=== PATIENT | male | born 1965 | race Caucasian/White ===

== ENCOUNTER → 2016-07-26 | Outpatient (CLI) | payer OTHER ==
[2016-07-26 13:34] LABS: ALT/SGPT 48 U/L (12-78); AST/SGOT 31 U/L (15-37); BLOOD UREA NITROGEN 13 mg/dl (7-18); CALCIUM 8.9 mg/dl (8.5-10.1); CARBON DIOXIDE 30 mmol/L (21-32); CHLORIDE 108 mmol/L (98-107); GLUCOSE 115 mg/dl (70-99); POTASSIUM 4.5 mmol/L (3.5-5.1); SODIUM 141 mmol/L (136-145)
[2016-07-26 13:36] LABS: ALB/GLOB RATIO 1.1 (0.9-2); ALKALINE PHOSPHATASE 59 U/L (45-117); CHOLESTEROL 157 mg/dl (0-200); CHOLESTEROL/HDL RATIO 4.6; HDL CHOLESTEROL 34 mg/dl; LDL CHOLESTEROL CALCULATED 107 mg/dl; TRIGLYCERIDES 79 mg/dl (0-150); VERY LOW DENSITY LIPOPROT CALC 16 mg/dl
== END ==
LOC: C.LABPBG 07:40
PROVIDERS: ATTEND Family Medicine
DX: I10 Essential (primary) hypertension (principal); Z13.220 Encounter for screening for lipoid disorders

== ENCOUNTER → 2017-03-02 | Outpatient (CLI) | payer OTHER ==
[2017-03-02 17:31] LABS: BLOOD UREA NITROGEN 15 mg/dl (7-18); BUN/CREATININE RATIO 14.3 (10-20); CARBON DIOXIDE 25 mmol/L (21-32); CHLORIDE 105 mmol/L (98-107); CREATININE 1.04 mg/dl (0.60-1.40); GLUCOSE 88 mg/dl (70-99); POTASSIUM 3.9 mmol/L (3.5-5.1); SODIUM 136 mmol/L (136-145)
[2017-03-03 07:16] LABS: ESTIMATED AVERAGE GLUCOSE 123 mg/dl; HA1C FLAG Normal (Normal)
== END | disposition home or self-care (01) ==
LOC: C.LABPBG 15:16
PROVIDERS: ATTEND Family Medicine
DX: I10 Essential (primary) hypertension (principal); R73.01 Impaired fasting glucose

== ENCOUNTER 2018-04-13 02:24 | Inpatient (IN) ==
[2018-04-13] MEDS ORDERED: ONDANSETRON INJ 2 MG/ML 2 ML VIAL IV STA (02:44)
[2018-04-13] MEDS ORDERED: MoRPHine SULFATE 10 MG/ML CARP/VIAL IV STA (02:44)
[2018-04-13] MEDS ORDERED: KETOROLAC 30 MG/ML VIAL IV STA (02:44)
[2018-04-13] MEDS ORDERED: SODIUM CHLORIDE 0.9% 1000ML 1,000 ML IV SCH (02:45)
[2018-04-13] MEDS ORDERED: MoRPHine SULFATE 4 MG/ML 1 ML CARP\\VIAL ONE (02:52)
[2018-04-13 02:59] LABS: Basophils # (auto) 0.03 K/uL (0-0.2); Basophils % (auto) 0.3 %; Eosinophils # (auto) 0.12 K/uL (0-0.5); Hematocrit (blood only) 43.6 % (42-52); Immature Granulocytes # (auto) 0.03 K/uL (0.00-0.02); Immature Granulocytes % (auto) 0.3 %; Lymphocytes # (auto) 1.31 K/uL (1.2-3.4); Lymphocytes % (auto) 11.1 %; Mean Corpuscular Hgb Conc 34.4 g/dL (32-36); Mean Corpuscular Volume 90.5 fL (80-100); Monocytes % (auto) 8.5 %; Neutrophils % (auto) 78.8 %; Platelet Count 201 K/uL (130-400); RDW Coefficient of Variation 13.7 % (11.5-14.5); RDW Standard Deviation 45.4 fL (36.4-46.3); Red Blood Count 4.82 M/uL (4.7-6.1); White Blood Count 11.79 K/uL (4.8-10.8)
[2018-04-13 03:16] LABS: Albumin Level 3.9 gm/dl (3.4-5.0); BUN Creatinine Ratio 18.8 (10-20); Calcium 8.8 mg/dl (8.5-10.1); Creatinine Clr Calc Pharmacy 110.1 ml/min; Est GFR (African American) 84.3; Est GFR (Non-African American) 72.8; Potassium 4.2 mmol/L (3.5-5.1)
[2018-04-13 03:19] LABS: Albumin Globulin Ratio 1.1 (0.9-2); Bilirubin,Total 0.3 mg/dl (0.2-1); Globulin 3.7 gm/dl (2.5-4.0); Total Protein 7.6 gm/dl (6.4-8.2)
[2018-04-13] MEDS ORDERED: HYDROmorphone INJ 1 MG/ML SYRINGE IV STA (04:12)
--- NOTE | 2018-04-13 04:59 | History & Physical Report ---
Date of Service April 13, 2018 Assessment & Plan (1) Ureteral calculus, right: 52 y/o M Hx HTN, ureteral calculus which required lithotripsy and stenting 2007. Presents with progressive R groin and testicular pain. Denies dysuria, fevers or rigors. A CT of the abdomen demonstrated 7mm and 10mm, R ureteral, proximal obstructing stones with moderate hydronephrosis. 1) Obstructing calculus. there is no chance of spontaneous passage. IVF and analgesics provided. The pt will be kept NPO for intervention and we have consulted uorlogy. He can receive antibiotics pre-eop. There is currently no evidence of concomitant infection. 2) HTN - Losartan held for likely procedure SCDS, full code Total time for this admit including review of labs, meds, imaging, records - discussion with pt and ER attending - 34 min Present on Admission?: Yes History of Present Illness Chief Complaint: 52 y/o M Hx HTN, ureteral calculus which required lithotripsy and stenting 2007. Presents with progressive R groin and testicular pain. Denies dysuria, fevers or rigors. A CT of the abdomen demonstrated 7mm and 10mm , R ureteral, proximal obstructing stones with moderate hydronephrosis. PMH: 1) Ureteral calculus - required lithotripsy and stent 2007 2) HTN 3) Obese Surgical: Limited to ureteral stent placement Social: Currently works for [employer]. Does not drink or smoke. Physically active at work. Family: Father owing to an [place] ~70 Primary Care Provider: Christel Ying DO Allergies Allergy/AdvReac Type Severity Reaction Status Date / Time No Known Allergies Allergy Unverified 04/13/18 03:09 Home Medications Home Medications Medication Instructions Recorded Confirmed Type Tumeric 1 tab PO DAILY 04/13/18 History celecoxib [Celebrex] 200 mg PO DAILY 04/13/18 04/13/18 History cholecalciferol (vitamin D3) 4,000 unit PO DAILY 04/13/18 04/13/18 History [Vitamin D3] losartan 50 mg PO DAILY 04/13/18 04/13/18 History Past Med/Surg History Social History Feels Safe at Home: Yes Smoking Status: Never smoker Review of Systems Gen: Denies fevers, night sweats, rigors, fatigue, malaise, weight loss/gain ENT: Denies congestion, throat pain, hearing loss Eyes: Denies acute visual changes CV: Denies CP, palpitations Pulmonary: Denies SOB, cough, wheezing GI: Denies N/V, diarrhea, constipation : R groin and testicular pain as above Neuro: Denies acute or unilateral weakness, acute gait impairment, headache or acute visual changes Musculoskeletal: Denies joint pain, inflammation Endocrine: Denies polydipsia, polyuria Skin: Denies acute rashes or ulcers Physical Exam 2 Vital Signs (Past 24 Hours): Last Vital Signs Temp 36.4 C L 04/13/18 02:40 Pulse 80 04/13/18 03:59 Resp 18 04/13/18 03:59 BP 158/97 H 04/13/18 03:59 Pulse Ox 97 04/13/18 03:59 Physical Exam: General: Pleasant, overweight, middle-aged male, AAO x 3, no distress ENT: No erythema or exudates, no thrush Eyes: NATA, EOMI Head and neck: Normocephalic, atraumatic, No JVD, neck is supple. Chest/heart: Nontender, S1,2, RRR, no murmurs, no gallops Lungs: CTAB, no wheezing or crackles Abdomen: There is no flank/CVP tenderness - there is some RLQ tenderness Neuro: AAO x 3, speech is clear, no unilateral weakness or loss of sensation, coordination intact Musculoskeletal: No joint inflammation, muscle tenderness, FROM Skin: No acute rashes or ulcers - facial erythema is present Extremities: No clubbing, cyanosis, edema Results & Data Diagnostic Findings 7mm and 10mm, R ureteral, proximal obstructing stones with moderate hydronephrosis.
[2018-04-13] MEDS ORDERED: HYDROmorphone INJ 0.5 MG/0.5 ML SYR IV PRN (05:43)
[2018-04-13] MEDS ORDERED: ALUMINUM/MAGNESIUM SUSP 30 ML UDC PO PRN (05:43)
[2018-04-13] MEDS ORDERED: ZOLPIDEM TARTRATE 5 MG TAB PO PRN (05:43)
[2018-04-13] MEDS ORDERED: POLYETHYLENE (MIRALAX) 17 GM PACK PO PRN (05:43)
[2018-04-13] MEDS ORDERED: ACETAMINOPHEN 325 MG TAB PO PRN (05:43)
[2018-04-13] MEDS ORDERED: ONDANSETRON INJ 2 MG/ML 2 ML VIAL IV PRN ×2 (05:43→13:31)
[2018-04-13] MEDS ORDERED: MAGNESIUM HYDROXIDE SUSP 30 ML UDC PO PRN (05:43)
--- NOTE | 2018-04-13 05:57 | Ultrasound Report ---
US scrotum/testicle CLINICAL HISTORY: 52 years-old Male presenting with right flank/testicle pain, history of right scrot al surgery. TECHNIQUE: Real-time grayscale and color and spectral Doppler ultrasound imaging of the scrotum was p erformed. COMPARISON: None. FINDINGS: Right testis: Heterogeneous echogenicity and echotexture. Testis measures 5.2 x 2.6 x 3.1 cm. Normal color Doppler flow and arterial and venous waveforms in the testicular parenchyma. Epididymal head no rmal. No hydrocele. Varicocele present. Left testis: Normal echogenicity and echotexture. Testis measures 5.2 x 2.8 x 3.2 cm. Normal color Do ppler flow and arterial and venous waveforms in the testicular parenchyma. Epididymal head normal. Sm all hydrocele present. Varicocele present. Symmetric perfusion of the testes. Other: None. IMPRESSION: 1. No evidence of testicular torsion or epididymitis-orchitis. 2. Heterogeneity of the right testis may indicate a history of prior torsion, orchitis, or trauma. 3. Bilateral varicoceles. 4. Small left hydrocele. Electronically signed by: Blair Whitlock M.D. 04/13/2018 5:55 AM
--- NOTE | 2018-04-13 06:03 | Emergency Department Note ---
History of Present Illness General Chief complaint: Testicular Pain Stated complaint: GROIN PAIN Time Seen by Provider: 04/13/18 02:38 History of Present Illness Maximum Pain Intensity: 9 This is a 52-year-old male presenting to the emergency department for evaluation of right testicle pain that began 2 days ago. The patient states that he had an initial episode of very severe 10/10 pain in the right testicle that lasted for approximately 10-15 minutes before completely resolving. The patient did not have additional symptoms that day, nor did he have more symptoms yesterday. The patient states that he was at home tonight, roughly 4 hours prior to arrival, and had a return of the discomfort. The patient describes it as a sharp stabbing pain with a baseline pain of 8/10 that has episodes of 10/10 pain. The patient states the pain makes him nauseated, but he has not vomited. He does not have lightheadedness or dizziness. He does have some mild chronic back pain, but nothing out of the ordinary. He does report a past history of kidney stones, but not for several years. The patient has been using the bathroom as normal. No recent fevers or chills. Home Medications Home Medications Medication Instructions Recorded Confirmed Type Tumeric 1 tab PO DAILY 04/13/18 History celecoxib [Celebrex] 200 mg PO DAILY 04/13/18 04/13/18 History cholecalciferol (vitamin D3) 4,000 unit PO DAILY 04/13/18 04/13/18 History [Vitamin D3] losartan 50 mg PO DAILY 04/13/18 04/13/18 History Allergies Allergy/AdvReac Type Severity Reaction Status Date / Time No Known Allergies Allergy Unverified 04/13/18 03:09 Past Med/Surg History Medical History Kidney stones No significant past surgical history Social History Current Living Situation: Spouse Other Information That Helps Us Care for You: No Feels Safe at Home: Yes Safety Concerns: Feels Safe At This Time Smoking Status: Never smoker Hx Alcohol Use: No Hx Substance Use: No Beliefs That Will Affect Care: None Preferred Language: Cameroonian Communication Ability: Effective Review of Systems A total of 10 systems reviewed and were otherwise negative Physical Exam Vital Signs Vital Signs - 24 hr 04/13/18 02:40 04/13/18 03:59 04/13/18 05:07 Temperature 36.4 C L Temperature Source Oral Sepsis Recent Fever Within 48 Hours No Sepsis New/Unexplained Change in Mental Status No Sepsis Action Taken by Nursing No Action Required Pulse Rate 87 Pulse Rate [Right Finger] 80 82 Pulse Rhythm Regular Pulse Rhythm [Right Finger] Regular Regular Pulse Strength Normal Pulse Strength [Right Finger] Normal Normal Respiratory Rate 20 18 18 Respiratory Effort / Characteristics Non-Labored Spontaneous Non-Labored Spontaneous Non-Labored Spontaneous Respiratory Depth Normal Normal Normal Respiratory Pattern Regular Blood Pressure 168/99 H Blood Pressure [Left Arm] Blood Pressure [Right Arm] 158/97 H 168/101 H Blood Pressure Mean 122 Blood Pressure Mean [Left Arm] Blood Pressure Mean [Right Arm] 117 123 Blood Pressure Position Sitting Pulse Oximetry 98 97 96 Oxygen Delivery Method Room Air Room Air Room Air 04/13/18 05:40 Temperature 36.5 C Temperature Source Oral Sepsis Recent Fever Within 48 Hours Sepsis New/Unexplained Change in Mental Status Sepsis Action Taken by Nursing Pulse Rate Pulse Rate [Right Finger] 75 Pulse Rhythm Pulse Rhythm [Right Finger] Pulse Strength Pulse Strength [Right Finger] Respiratory Rate 22 Respiratory Effort / Characteristics Respiratory Depth Respiratory Pattern Blood Pressure Blood Pressure [Left Arm] 154/89 H Blood Pressure [Right Arm] Blood Pressure Mean Blood Pressure Mean [Left Arm] 110 Blood Pressure Mean [Right Arm] Blood Pressure Position Pulse Oximetry 97 Oxygen Delivery Method Room Air VITALS: Vitals are noted on the nurse's note and reviewed by myself. Vital signs stable. GENERAL: Well-developed, well-nourished, white male, who appears in moderate to severe discomfort upon my presentation to the ER room. The patient is bent over against the ER bed from a standing position. He is cooperative and able to answer questions. HEAD: Normocephalic atraumatic. EYES: Pupils equal round and reactive to light and accommodation. Conjunctivae without injection, sclerae without icterus. Extraocular movements intact. NECK: Supple without nuchal rigidity. No lymphadenopathy. No thyromegaly. Cervical spine is nontender. HEART: Regular rate and rhythm without murmurs gallops or rubs. LUNGS: Clear to auscultation bilaterally without wheezes, rales or rhonchi. No retractions or accessory muscle use. ABDOMEN: Positive normal bowel sounds x 4. Soft, nontender, without masses or organomegaly. No guarding or rebound tenderness. No CVA tenderness MUSCULOSKELETAL: No muscle atrophy, erythema, or edema noted. Full range of motion in all extremities. No tenderness to palpation. NEURO: Patient was alert and oriented to person place and time. CN II through XII grossly intact. SKIN: The skin was without rashes, erythema, edema, or bruising. Capillary refill less than 2 seconds. Course Administered Medications Acetaminophen (Tylenol) 650 mg PO Q4H PRN PRN Reason: pain/fever Stop: 05/13/18 05:42 Last Admin: 04/13/18 06:15 Dose: 650 mg Lactated Ringer's (Lr) 1,000 mls @ 125 mls/hr IV .Q8H AIDAN Stop: 04/13/18 21:42 Last Infusion: 04/13/18 06:38 Dose: 125 mls/hr Admin: 04/13/18 06:34 Dose: 125 mls/hr Discontinued Medications Hydromorphone HCl (Dilaudid) 1 mg IV NOW STA Stop: 04/13/18 04:13 Last Admin: 04/13/18 04:18 Dose: 1 mg Sodium Chloride (Nss 1000ml) 1,000 mls @ 999 mls/hr IV .Q1H1M AIDAN Stop: 04/13/18 03:45 Last Infusion: 04/13/18 03:58 Dose: 0 mls/hr Admin: 04/13/18 02:57 Dose: 999 mls/hr Ketorolac Tromethamine (Toradol) 30 mg IV NOW STA Stop: 04/13/18 02:45 Last Admin: 04/13/18 02:55 Dose: 30 mg Morphine Sulfate (Morphine Sulfate) 8 mg IV NOW STA Stop: 04/13/18 02:45 Last Admin: 04/13/18 02:57 Dose: Not Given Morphine Sulfate (Morphine Sulfate) Confirm Administered Dose 8 mg .ROUTE .STK- MED ONE Stop: 04/13/18 02:53 Last Admin: 04/13/18 02:55 Dose: 8 mg Ondansetron HCl (Zofran) 4 mg IV NOW STA Stop: 04/13/18 02:45 Last Admin: 04/13/18 02:55 Dose: 4 mg Medical Decision Making Differential Diagnosis Differential diagnosis: Etiologies such as shingles, pyelonephritis/UTI, renal colic, appendicitis, diverticulitis, mesenteric ischemia, torsion, aortic pathology, infections, inflammatory bowel disease, bowel obstruction, PUD, biliary pathology, as well as others were entertained. Laboratory Data Result diagrams: 04/13/18 02:50 04/13/18 02:50 Lab Results 04/13/18 04/13/18 04/13/18 Range/Units 02:50 02:50 06:05 WBC 11.79 H (4.8-10.8) K/uL RBC 4.82 (4.7-6.1) M/uL Hgb 15.0 (14.0-18.0) g/dL Hct 43.6 (42-52) % MCV 90.5 (80-100) fL MCH 31.1 (25-34) pg MCHC 34.4 (32-36) g/dL RDW Std Deviation 45.4 (36.4-46.3) fL RDW Coeff of Barbie 13.7 (11.5-14.5) % Plt Count 201 (130-400) K/uL MPV 11.0 H (7.4-10.4) fL Immature Gran % (Auto) 0.3 % Neut % (Auto) 78.8 % Lymph % (Auto) 11.1 % [place] % (Auto) 8.5 % Eos % (Auto) 1.0 % Baso % (Auto) 0.3 % Immature Gran # (Auto) 0.03 H (0.00-0.02) K/uL Neut # (Auto) 9.30 H (1.4-6.5) K/uL Lymph # (Auto) 1.31 (1.2-3.4) K/uL [place] # (Auto) 1.00 H (0.11-0.59) K/uL Eos # (Auto) 0.12 (0-0.5) K/uL Baso # (Auto) 0.03 (0-0.2) K/uL Sodium 136 (136-145) mmol/L Potassium 4.2 (3.5-5.1) mmol/L Chloride 108 H (98-107) mmol/L Carbon Dioxide 23 (21-32) mmol/L Anion Gap 5.0 (3-11) BUN 22 H (7-18) mg/dl Creatinine 1.15 (0.6-1.4) mg/dl Est Cr Clr Drug Dosing 110.1 ml/min Est GFR ( Amer) 84.3 Est GFR (Non-Af Amer) 72.8 BUN/Creatinine Ratio 18.8 (10-20) Glucose 146 H (70-99) mg/dl Calcium 8.8 (8.5-10.1) mg/dl Total Bilirubin 0.3 (0.2-1) mg/dl AST 31 (15-37) U/L ALT 46 (12-78) U/L Alkaline Phosphatase 57 (45-117) U/L Total Protein 7.6 (6.4-8.2) gm/dl Albumin 3.9 (3.4-5.0) gm/dl Globulin 3.7 (2.5-4.0) gm/dl Albumin/Globulin Ratio 1.1 (0.9-2) Urine Color Yellow Urine Appearance Cloudy H (Clear) Urine pH 5.0 (4.5-7.5) Ur Specific [place] 1.033 H (1.000-1.030) Urine Protein Negative (Negative) Urine Glucose (UA) Negative (Negative) Urine Ketones Negative (Negative) Urine Blood 1+ H (Negative) Urine Nitrite Negative (Negative) Urine Bilirubin Negative (Negative) Urine Urobilinogen Negative (Negative) Ur Leukocyte Esterase Negative (Negative) Urine WBC (Auto) 1-5 (0-5) /hpf Urine RBC (Auto) 0-4 (0-4) /hpf U Hyaline Cast (Auto) 1-5 (0-5) /lpf U Epithel Cells (Auto) 10-20 H (0-5) /lpf Urine Bacteria (Auto) Negative (Negative) Imaging Data Radiologist's Impression: Preliminary Findings Only See Final Report For Complete Findings US SCROTAL: The right testicle is mildly heterogeneous in echotexture. The flow within the right testicle appears normal which makes orchitis unlikely but not completely excluded. No torsion. No mass. Left testicle is normal. Bilateral varicoceles. Small left hydrocele. Preliminary Findings Only See Final Report For Complete Findings CT ABDOMEN & PELVIS Without Contrast: 2 obstructing stones at the proximal right ureter measuring 7 mm and 10 mm causing moderate right hydronephrosis. Additional bilateral nephrolithiasis. Diverticulosis without diverticulitis. Normal appendix. Bilateral fat-containing inguinal hernias. Bilateral L5 pars defect. Mild anterolisthesis at L5-S1. MDM Narrative Physical exam and history were performed. Nursing notes, EMR, and Medication List were personally reviewed. Patient appears to have severe pain in his right testicle. The patient does have a kidney stone history, and this does seem similar. IV access was established and labs were obtained. The patient was given IV Toradol, IV Zofran , and IV morphine. He was sent to ultrasound and CT scan. The patient's blood work is as above and was reviewed. He does have a minimally elevated white blood cell count of 11,000. He does not have a signal is. Urine is with blood but no gross infection. Ultrasound does not show evidence of testicular etiology of the patient's symptoms. CT scan appears to show 2 right ureteral calculi essentially on top of each other the first measuring 7 mm and the second measuring 10 mm. This clinically seems to correlate with the patient's discomfort. On repeat examination the patient did require additional pain medication and was given IV Dilaudid. I discussed options of care with the patient, who overall does not feel well for discharge home. The case was discussed with the on-call [facility] hospitalist who agreed to evaluate the patient here in the department. Please see their dictation for further patient course, plan, and disposition. The chart was completed utilizing [employer] Speech Voice Recognition Software. Grammatical errors, random word insertions, pronoun errors, and incomplete sentences are an occasional consequence of this system due to software limitations, ambient noise, and hardware issues. Any formal questions or concerns about the content, text, or information contained within the body of this dictation should be directly addressed to the provider for clarification. . Impression & Plan Ureteral calculus, right Discharge Plan Visit Data *Final* Discharge Date/Time: 04/13/18 05:24 Chief Complaint: Testicular Pain Stated Complaint: GROIN PAIN ED Provider: Wanda Carrillo ED Midlevel Provider: Tr Nelson Discharge Problem: Ureteral calculus, right Patient Disposition: Admitted As Inpatient Discharge Instructions Interventions: ED Discharge Assessment Last Done: 04/13/18 05:24
[2018-04-13] MEDS: LACTATED RINGER'S 1,000 ML IV SCH ×2 (06:34→16:28)
[2018-04-13 06:43] LABS: Appearance Urine Cloudy (Clear); Bacteria Urine Automated Negative (Negative); Bilirubin Urine Negative (Negative); Color Urine Yellow; Glucose Urine UA Negative (Negative); Ketones Urine Negative (Negative); Leukocyte Esterase Urine Negative (Negative); Nitrite Urine Negative (Negative); Protein Urine Negative (Negative); Specific Gravity Urine 1.033 (1.000-1.030); Urobilinogen Urine Negative (Negative)
--- NOTE | 2018-04-13 07:24 | CT Scan Report ---
CT abd pelvis wo con CLINICAL HISTORY: 52 years-old Male presenting with right flank/testicle pain, dark urine, history of renal calculi. TECHNIQUE: Multidetector CT of the abdomen and pelvis was performed without the use of intravenous co ntrast. IV contrast: None. One or more dose lowering techniques were used consistent with the princip les of ALARA (as low as reasonably achievable), including automatic exposure control, mA or kV adjust ment to individual patient size, and/or use of iterative reconstruction. COMPARISON: None. CT DOSE (mGy.cm): The estimated cumulative dose is 1920.58 mGy.cm. FINDINGS: [employer] topogram: Unremarkable. Lung bases: Minimal dependent changes likely atelectasis. Solid polygonal central left lower lobe uln ar nodule (series 3 image 39). Normal heart size. Coronary artery calcification. No pericardial or pl eural effusion. Liver: Normal morphology. Density consistent with moderate hepatic steatosis. Biliary: No gross biliary ductal dilatation allowing for noncontrast technique. Gallbladder decompres sed. Pancreas: Normal noncontrast appearance. Spleen: Normal noncontrast appearance. Adrenal glands: Normal noncontrast appearance. Kidneys and ureters: Mild pelvocaliectasis of the right kidney with moderate right perinephric fat in filtration. 2 adjacent obstructing proximal right ureteral calculi evident. The more distal calculus measures 7 mm in cross-sectional diameter and the more superior calculus measures 9 mm. Significant p eriureteral fat infiltration proximally. The mid to distal right ureter is decompressed and normal. L eft ureter normal. Nonobstructing left renal calculus at the lower pole measuring 6 mm as well as a n onobstructing punctate upper pole calculus. Few nonobstructing right upper pole punctate calculi also noted. Right lower pole renal cyst suspected. Bladder: Incompletely evaluated secondary to underdistention. No bladder calculi. Pelvic organs: Normal noncontrast appearance. Bowel: Limited diverticulosis along the descending and proximal to mid sigmoid colon without wall thi ckening or pericolonic inflammatory change. The appendix is normal. No bowel obstruction. Small bowel malrotation suggested as the left lateral most aspect of the horizontal portion of the duodenum is j ust slightly to the left of midline (series 3 image 241). Peritoneal cavity: No free fluid or intraperitoneal gas. Lymph nodes: No gross lymphadenopathy allowing for noncontrast technique. Vasculature: Normal noncontrast appearance. Abdominal wall: Bilateral fat-containing inguinal hernias. Musculoskeletal: Bilateral pars defects of L5. IMPRESSION: 1. Two adjacent obstructing proximal right ureteral calculi with resultant mild right hydronephrosis . The degree of right perinephric fat infiltration may be due to the degree of hydronephrosis but worley ses concern for calyceal rupture. 2. Additional bilateral nonobstructing renal calculi. 3. Additional abdominopelvic findings as above. 4. Solid 5 mm left lower lobe pulmonary nodule. Follow-up per Fleischner Society 2017 recommendation s below. Summary of Fleischner Society 2017 Recommendations (H Carolynn, et al. Guidelines for management of i ncidental pulmonary nodules detected on CT images: From the Fleischner Society 2017. Radiology 2017; 284: 228-243.) SOLID NODULES Single nodule; size < 6 mm * Low risk patients: No routine follow-up * High risk patients: Optional CT at 12 months Single nodule; size 6-8 mm * Low risk patients: CT at 6-12 months, then consider CT at 18-24 months * High risk patients: CT at 6-12 months, then at 18-24 months Single nodule; size > 8 mm * Either low or high risk patients: Considered CT at 3 months, PET/CT, or tissue sampling Multiple nodules; size < 6 mm * Low risk patients: No routine follow up * High risk patients: Optional CT at 12 months Multiple nodules; size 6-8 mm * Low risk patients: CT at 3-6 months, then consider CT at 18-24 months * High risk patients: CT at 3-6 months, then at 18-24 months Multiple nodules; size > 8 mm * Low risk patients: CT at 3-6 months, then consider at 18-24 months * High risk patients: CT at 3-6 months, then at 18-24 months SUBSOLID NODULES Single ground-glass nodule * Nodule size < 6 mm: No routine follow-up * Nodule size > or = 6 mm: CT at 6-12 months to confirm persistence, then CT every 2 years until 5 y ears Single part-solid nodule * Nodule size < 6 mm: No routine follow-up * Nodules size > or = 6 mm: CT at 3-6 months to confirm persistence. If unchanged and solid componen t remains < 6 mm, annual CT should be performed for 5 years Multiple nodules * Nodule size < 6 mm: CT at 3-6 months. If stable, consider CT at 2 and 4 years. * Nodules size > or = 6 mm: CT at 3-6 months. Subsequent management based on the most suspicious nod ule(s) NOTE: 1) These guidelines apply to incidental nodules. These guidelines do NOT apply to patients younger th an 35 years, immunocompromised patients, or patients with cancer. 2) Risk categories: * Low risk patients: Minimal or absent history of smoking and/or other known risk factors * High risk patients: History of smoking, exposure to other carcinogens, emphysema, fibrosis, upper lobe location, family history of lung cancer, etc. 3) If a nodule up to 8 mm is partly solid or is ground glass, further follow-up is required after 24 months to exclude possible slow growing adenocarcinoma. Electronically signed by: Blair Whitlock M.D. 04/13/2018 7:22 AM
[2018-04-13] MEDS ORDERED: HYDROmorphone INJ 0.5 MG/0.5 ML SYR IV STA (09:42)
[2018-04-13] MEDS ORDERED: HYDROmorphone INJ 1 MG/ML SYRINGE IV PRN (09:43)
--- NOTE | 2018-04-13 10:45 | XRay Report ---
XR KUB CLINICAL HISTORY: 52 years-old Male presenting with ureteral stones. TECHNIQUE: Single supine view of the abdomen was obtained. COMPARISON: CT from earlier today. FINDINGS: Nonobstructive bowel gas pattern. No gross pneumoperitoneum. Two adjacent calculi project over the course of the proximal right ureter and correlate with the find ings of ureteral calculi on CT. The more inferior calculus projecting at the level of L3-4 measures 7 mm in length and the slightly more superior calculus at the level of L3 measures 9 mm in length. Add itional bilateral nephrolithiasis evident though best appreciated on CT. Degenerative changes of the spine. Lung bases clear. IMPRESSION: 1. Two adjacent proximal right ureteral calculi at the level of L3 and L3-4. These are unchanged fro m CT performed earlier today. Electronically signed by: Blair Whitlock M.D. 04/13/2018 10:44 AM
--- NOTE | 2018-04-13 11:00 | XRay Report ---
XR chest 2V routine CLINICAL HISTORY: 52 years-old Male presenting with preop. TECHNIQUE: PA and lateral views of the chest were obtained. COMPARISON: None. FINDINGS: Cardiomediastinal silhouette normal. Mildly low lung volumes. No focal opacity. No pleural effusion o r pneumothorax. Degenerative changes of the thoracic spine. Upper abdomen normal. IMPRESSION: 1. No acute cardiopulmonary disease. Electronically signed by: Blair Whitlock M.D. 04/13/2018 10:59 AM
--- NOTE | 2018-04-13 11:01 | Anesthesiology Consultation ---
Date of Service April 13, 2018 Assessment & Plan Chart Review Chart Review: Acceptable Risk for Surgery and Patient NOT seen in Pre Admission Testing Consults Requested none ASA [id number] Proposed Anesthesia Anesthesia Type: General and MAC NPO Date Last Intake of Fluids: 04/12/18 Time Last Intake of Fluids: 23:59 Date Last Intake of Solids: 04/12/18 Time Last Intake of Solids: 23:59 History Surgery Operation Date: 04/13/18 12:15 Proposed Procedures p Ureteral Stent Insertion/Removal - Maynor Antony MD Height/Weight Height: 5 ft 9 in Weight: 151 kg Allergies Allergy/AdvReac Type Severity Reaction Status Date / Time No Known Allergies Allergy Unverified 04/13/18 03:09 Medications Home Medications Medication Instructions Recorded Confirmed Last Taken Tumeric 1 tab PO DAILY 04/13/18 Unknown celecoxib [Celebrex] 200 mg PO DAILY 04/13/18 04/13/18 Unknown cholecalciferol (vitamin D3) 4,000 unit PO DAILY 04/13/18 04/13/18 Unknown [Vitamin D3] losartan 50 mg PO DAILY 04/13/18 04/13/18 Unknown Active Medications Generic Name Dose Route Start Last Admin Trade Name Freq PRN Reason Stop Dose Admin Acetaminophen 650 mg 04/13/18 05:43 04/13/18 06:15 Tylenol PO 05/13/18 05:42 650 mg Q4H PRN Administration pain/fever Lactated Ringer's 1,000 mls @ 125 mls/hr 04/13/18 05:43 04/13/18 06:38 Lr IV 04/13/18 21:42 125 mls/hr .Q8H AIDAN Infusion Past Medical History Medical History HTN (hypertension) Hydronephrosis Kidney stones Morbid (severe) obesity due to excess calories No significant past surgical history Sleep apnea Past Anesthesia History No Hx of Anesthesia Complications and No Family Hx of Anesthesia Complications History of PONV No Motion Sickness Screening History of Motion Sickness: No Social History Smoking Status: Never smoker Hx Alcohol Use: No Hx Substance Use: No Exercise / Class Metabolic Activity III < 4 Walking/Shop/Light housework Physical Exam Vital Signs Last Vital Signs Temp 36.5 C 04/13/18 05:40 Pulse 75 04/13/18 05:40 Resp 22 04/13/18 05:40 BP 154/89 H 04/13/18 05:40 Pulse Ox 97 04/13/18 05:40 Testing Laboratory Results 04/13/18 02:50 04/13/18 02:50 Urine Color Yellow 04/13/18 06:05 Urine Appearance Cloudy (Clear) H 04/13/18 06:05 Urine pH 5.0 (4.5-7.5) 04/13/18 06:05 Ur Specific [place] 1.033 (1.000-1.030) H 04/13/18 06:05 Urine Protein Negative (Negative) 04/13/18 06:05 Urine Glucose (UA) Negative (Negative) 04/13/18 06:05 Urine Ketones Negative (Negative) 04/13/18 06:05 Urine Nitrite Negative (Negative) 04/13/18 06:05 Ur Leukocyte Esterase Negative (Negative) 04/13/18 06:05 Urine WBC (Auto) 1-5 /hpf (0-5) 04/13/18 06:05 Urine RBC (Auto) 0-4 /hpf (0-4) 04/13/18 06:05 U Hyaline Cast (Auto) 1-5 /lpf (0-5) 04/13/18 06:05 U Epithel Cells (Auto) 10-20 /lpf (0-5) H 04/13/18 06:05 Urine Bacteria (Auto) Negative (Negative) 04/13/18 06:05
--- NOTE | 2018-04-13 11:39 | Consultation Report ---
DATE OF CONSULTATION: 04/13/2018 UROLOGIC CONSULTATION REASON FOR THE CONSULT: Proximal right ureteral calculi. HISTORY OF PRESENTATION: The patient is a 52-year-old male with previous history of stone requiring ureteroscopy who has had a month's worth of right-sided flank pain who came to the Emergency Room with severe right testicular pain in addition to his ongoing right-sided back pain. He has had some nausea, but did not vomit. He has been admitted by the hospitalist having a CAT scan that showed a 1 cm and a 5 mm proximal right ureteral calculus and he is requiring Dilaudid to control his pain. He denies any fever or chills. Denies any gross hematuria. PAST MEDICAL HISTORY: Significant for previous ureteroscopy as well as hypertension. MEDICATIONS: Include turmeric, Celebrex, vitamin D and losartan. ALLERGIES: He has no known drug allergies. SOCIAL HISTORY: He does not smoke or drink. REVIEW OF SYSTEMS: Please review the review of systems that was done on the admitting history and physical. A total of 10 systems were reviewed and were otherwise negative. PHYSICAL EXAMINATION: VITAL SIGNS: He is afebrile, but is slightly hypertensive and has been since his admission, his last blood pressure being 168/101. GENERAL: He is a slightly overweight male, is otherwise in mild distress. HEENT: Unremarkable. Eyes are normal. NECK: Supple without palpable adenopathy. ABDOMEN: He has no pedal edema. He has no obvious respiratory distress. Abdomen is soft, but he does have some mild right CVA tenderness. MUSCULOSKELETAL: The patient has full range of motion without any abnormalities noted. SKIN: Dry without any abnormalities. NEUROLOGIC: He is alert and oriented without any focal or sensory deficits. IMAGING DATA: KUB confirms proximal stones. ASSESSMENT: I discussed the patient's options including attempted proximal ureteroscopy, but given that the leading stone is small, it is clearly going to be swelling there and it may be difficult to get a flexible scope into the position to do ureteroscopy in the proximal ureter easily today. In any event that there are difficulties with proceed to placing stent, we discussed proceeding after this to lithotripsy. Discussed the option of discharge him without a stent for lithotripsy, but given his ongoing pain, we agreed to proceed with cysto and probable stent placement.
[2018-04-13] MEDS ORDERED: fentaNYL citrate 100 MCG/2 ML VIAL ONE (12:43)
[2018-04-13] MEDS ORDERED: MIDAZOLAM HCL 1 MG/ML 2ML VIAL ONE (12:43)
[2018-04-13] MEDS ORDERED: IOTHALAMATE MEGLUMINE II 17.2% 250 ML VIAL ONE (12:51)
[2018-04-13] MEDS ORDERED: CIPROFLOXACIN 400 MG/200 ML BAG IV SCH (13:00)
[2018-04-13] MEDS ORDERED: DEXAMETHASONE SOD INJ 4 MG/ML VIAL ONE (13:28)
[2018-04-13] MEDS ORDERED: ONDANSETRON INJ 2 MG/ML 2 ML VIAL ONE (13:28)
[2018-04-13] MEDS ORDERED: LIDOCAINE HCL 2% 2 ML VIAL/AMP(20MG/ML) INFIL ONE (13:28)
[2018-04-13] MEDS ORDERED: ROCURONIUM BROMIDE 10 MG/ML 5 ML VIAL ONE (13:28)
[2018-04-13] MEDS ORDERED: SUCCINYLCHOLINE CHLORIDE 20 MG/ML 10 ML VIAL ONE (13:28)
[2018-04-13] MEDS ORDERED: PROPOFOL IV EMULSION 10 MG/ML 20 ML VIAL IV ONE (13:28)
[2018-04-13] MEDS ORDERED: INFLUENZA VIRUS QUAD VACCINE 0.5 ML SYR IM ONE (13:30)
[2018-04-13] MEDS ORDERED: INFLUENZA ADMINISTRATION CHARGE ONE (13:30)
[2018-04-13] MEDS ORDERED: PROMETHAZINE HCL 12.5 MG in SODIUM CHLORIDE 0.9% 50 ML IV PRN (13:31)
[2018-04-13] MEDS ORDERED: fentaNYL citrate 100 MCG/2 ML VIAL IV PRN (13:31)
[2018-04-13] MEDS ORDERED: LABETALOL HCL IV 5 MG/ML 20ML IV PRN (13:31)
[2018-04-13] MEDS ORDERED: ATROPINE SULFATE 0.1 MG/ML 10ML SYR IV PRN (13:31)
[2018-04-13] MEDS ORDERED: FLUMAZENIL 0.1 MG/1 ML 10 ML VIAL IV PRN (13:31)
[2018-04-13] MEDS ORDERED: NALOXONE HCL 0.4 MG/1 ML VIAL/CARP IV PRN (13:31)
[2018-04-13] MEDS ORDERED: ePHEDrine sulfate 50 MG/ML AMP IV PRN (13:31)
--- NOTE | 2018-04-13 13:44 | Post Operative Brief Note ---
Immediate Post Op Note v1 Date of Surgery April 13, 2018 Pre & Post Diagnosis Operation Date: 04/13/18 12:15 Pre-Op Diagnosis: proximal right ureteral calculi Post-Op Diagnosis: proximal right ureteral calculi Procedure Operation Date: 04/13/18 12:15 Actual Procedures p Cystoscopy, Attempted Right Ureteroscopy, Right Stent Placement (Right) - Maynor Antony MD Surgeon Maynor Antony MD [employer] none Estimated Blood Loss 10 Findings See Below (uretral stricture and impacteed proximal stone)
--- NOTE | 2018-04-13 14:13 | Fluoroscopy Report ---
FL retrograde includes kub CLINICAL HISTORY: 52 years-old Male presenting with STONES. TECHNIQUE: 2 fluoroscopic image(s) recorded as part of an intraoperative procedure. COMPARISON: None. FINDINGS/IMPRESSION: Right ureteral stent in place. Please see surgical report for further details. Dose area product (mGy.m^2): 1.27. Fluoroscopy time: 82.7 seconds. Number or time of fluoroscopic spot images: 0. Electronically signed by: Blair Whitlock M.D. 04/13/2018 2:12 PM
--- NOTE | 2018-04-13 14:58 | Anesthesiology Progress Note ---
Date of Service April 13, 2018 Anesthesia Post Procedure Vital Signs Vital Signs: Temp Pulse Pulse Resp BP BP BP 04/13/18 14:50 65 18 157/81 H 04/13/18 14:40 77 18 158/84 H 04/13/18 14:30 69 18 161/92 H 04/13/18 14:20 36.2 C L 80 20 170/95 H 04/13/18 14:10 79 20 173/94 H 04/13/18 14:00 79 20 174/85 H 04/13/18 13:54 36.0 C L 87 20 165/80 H 04/13/18 05:40 36.5 C 75 22 154/89 H 04/13/18 05:07 82 18 168/101 H 04/13/18 03:59 80 18 158/97 H 04/13/18 02:40 36.4 C L 87 20 168/99 H Pulse Ox 04/13/18 14:50 95 04/13/18 14:40 94 04/13/18 14:30 94 04/13/18 14:20 94 04/13/18 14:10 99 04/13/18 14:00 99 04/13/18 13:54 96 04/13/18 05:40 97 04/13/18 05:07 96 04/13/18 03:59 97 04/13/18 02:40 98 Pain Intensity Right Testicles: Pain Intensity: 3 Notes Mental Status: alert / awake / arousable Patient Amnestic to Procedure: Yes Nausea / Vomiting: adequately controlled Pain: adequately controlled Airway Patency, RR, SpO2: stable & adequate BP & HR: stable & adequate Hydration State: stable & adequate Anesthetic Complications: no major complications apparent
--- NOTE | 2018-04-13 18:55 | Operative Report ---
DATE OF OPERATION: 04/13/2018 PREOPERATIVE DIAGNOSIS: Right proximal ureteral calculi. POSTOPERATIVE DIAGNOSES: Right proximal ureteral calculi with urethral stricture. PROCEDURE PERFORMED: Urethral dilation and attempted right retrograde and right stent placement. HISTORY OF PRESENTATION: The patient is a 52-year-old male who has had 1 month history of on and off back pain who developed worsening pain in his abdomen and groin who presented to the Emergency Room, had a CAT scan that shows 2 proximal ureteral stones. One stone is up to a centimeter in size, the other stone is small, approximately 4 and is the leading stone. The patient denies any fever, but was given the options of observation, attempted ureteroscopy which was performed and stent placement with the understanding that the likelihood of ureteroscopy being successful was small because of the size of the stone and its location. DESCRIPTION OF THE PROCEDURE: The patient was taken to the Cystoscopy Suite where general anesthesia was administered. He was given preoperative Cipro, had Venodyne stockings placed, was placed in dorsal lithotomy position and prepped and draped in usual sterile fashion. Initially, a 21-Australian cystoscope was passed per urethra, but he had a stricture, so this was removed and then 70-Australian scope was passed and a 21-Australian scope and then 22-Australian scope was passed. Once inside the bladder, a 25-Australian open-ended catheter was used to inject contrast and the stone was clearly impacted as the contrast could not go by. I was able to with some difficulty get a dual flex guidewire through the open-ended catheter beyond the stone. Once this was done, the scope was removed leaving the wire in place, which was left in place and held in place with a hemostat clamp outside to stabilize it. As the scope was reintroduced, a second wire was placed beyond the stones with some difficulty. Then, a balloon was used to dilate the distal ureter. Then, an Olympus flexible ureteroscope was attempted to be passed over the wire, but only went up several centimeters and he had a narrowed area. At this point, given multiple areas appeared to be narrowed both in the urethra and there was clearly a narrowing proximally. There was a fair amount of bleeding. At this point, the procedure was stopped. The scope was removed. One of the wires was removed and a 5-Australian 26 cm stent with a loop was passed. There was some again difficulty getting 5-Australian catheter past the stone as it was clearly impacted and it took a fair amount of pressure to do so. At the end of the procedure, there was a good loop in the renal pelvis. The loops were in the bladder and the bladder was emptied. He was transferred to the Recovery Room in a stable condition. I attest to the content of the Intraoperative Record and any orders documented therein. Any exceptions are noted below. SVETLANA
[2018-04-13] MEDS ORDERED: TAMSULOSIN HCL 0.4 MG CAP PO SCH (21:00)
[2018-04-14] MEDS ORDERED: LOSARTAN POTASSIUM 50 MG TAB PO SCH (09:00)
[2018-04-14] MEDS ORDERED: CHOLECALCIFEROL 1,000 UNITS TAB PO SCH (09:00)
--- NOTE | 2018-04-15 07:23 | Discharge Summary ---
Date of Service April 13, 2018 Admission HPI Per Admitting Provider 52 y/o M Hx HTN, ureteral calculus which required lithotripsy and stenting 2007. Presents with progressive R groin and testicular pain. Denies dysuria, fevers or rigors. A CT of the abdomen demonstrated 7mm and 10mm, R ureteral, proximal obstructing stones with moderate hydronephrosis. Principal Diagnosis Right obstructing ureteral stone Discharge Exam General: Pleasant, overweight, middle-aged male, AAO x 3, no distress ENT: No erythema or exudates, no thrush Eyes: NATA, EOMI Head and neck: Normocephalic, atraumatic, No JVD, neck is supple. Chest/heart: Nontender, S1,2, RRR, no murmurs, no gallops Lungs: CTAB, no wheezing or crackles Abdomen: There is no flank/CVP tenderness - NO abdominal tenderness Neuro: AAO x 3, speech is clear, no unilateral weakness or loss of sensation, coordination intact Musculoskeletal: No joint inflammation, muscle tenderness, FROM Skin: No acute rashes or ulcers; No clubbing, cyanosis, edema Discharge Data Allergies Allergy/AdvReac Type Severity Reaction Status Date / Time No Known Allergies Allergy Verified 04/17/18 10:37 Consultations 04/13/18 04:27 ED Decision to Admit Stat 04/13/18 05:43 Consult Urology Routine Procedures Performed Operation Date: 04/13/18 12:15 Actual Procedures p Cystoscopy, Attempted Right Ureteroscopy, Right Stent Placement (Right) - Maynor Antony MD Ordered Studies 04/13/18 02:44 CT abd pelvis wo con Urgent US scrotum/testicle Stat 04/13/18 12:17 [place] retrograde includes kub Routine Hospital Course (1) Ureteral calculus, right: 52 y/o M Hx HTN, ureteral calculus which required lithotripsy and stenting 2007. Presents with progressive R groin and testicular pain. Denies dysuria, fevers or rigors. A CT of the abdomen demonstrated 7mm and 10mm, R ureteral, proximal obstructing stones with moderate hydronephrosis. 1) Obstructing calculus. there is no chance of spontaneous passage. IVF and analgesics provided. The pt will be kept NPO for intervention and we have consulted uorlogy. He can receive antibiotics pre-eop. There is currently no evidence of concomitant infection. On 04/13 patient had, Urethral dilation and attempted right retrograde and right stent placement. Urology cleared patient for discharge if pain was controlled. Patient repoted that he would like to go home. Opiates were prescribed to patient, with OTC laxatives. Patient will f/u with Urology on Sunday. 2) HTN - Losartan held for likely procedure. Will resume at discharge SCDS, full code Total Time Total Time Spent Total Time Spent (In Minutes): 33 Total Time Includes: Examination of the Patient, Discharge Planning and Medication Reconciliation Discharge Plan Discharge Items Patient Disposition: Home - Self-Care Reason For Visit: OBSTRUCTING CALCULUS Discharge Diagnosis: Obstructing calculus. Discharge Goals: Decrease discomfort Activity: Resume your previous activity Non-emergency contact: Primary Care Provider and Urologist Call non-emergency contact if: your symptoms worsen Diet: Regular Addtl Provider Instructions: Followup with urology within 1 week. Call [facility] on Sunday for followup. [phone]. A stent was placed in your ureter which which help dilate the tube. It is normal to have some blood in your urine. You will be discharged on pain medicine, nausea medicine and an antibiotic for the short term. Prescriptions: New tamsulosin 0.4 mg Capsule 0.4 mg PO HS Qty: 30 RF: 0 Continue losartan 50 mg Tablet 50 mg PO QAM RF: 0 cholecalciferol (vitamin D3) [Vitamin D3] 2,000 unit Capsule 4,000 unit PO DAILY RF: 0 Discontinued celecoxib [Celebrex] 200 mg Capsule 200 mg PO DAILY RF: 0 No Action multivitamin Tablet 1 tab PO DAILY RF: 0 turmeric 400 mg Capsule 1 tab PO DAILY RF: 0 sennosides-docusate sodium [Senna-S] 8.6-50 mg tablet 1 tab PO DAILY PRN (Reason: constipation) RF: 0 Stand-Alone Forms: Opioid Pain Management Discharge Orders: Discharge Order (Routine); Ordered 04/13/18 Ordered By: Adam uHff Admission Data Admit Date/Time: 04/13/18 04:48 Attending Provider: Adam Huff Admit Provider: Aroldo Michelle Primary Care Provider: Christel Ying Other Providers: Maynor Antony ; Db Mccollum Service: Surgical Services Other Interventions: Discharge Summary Assessment (RN) Last Done: 04/13/18 17:54 DC Date/Time DO NOT enter until pt leaves facility: 04/13/18 19:05
== END 2018-04-13 19:05 | disposition home or self-care (01) | DRG 660 ==
LOC: ED 02:24 → SUATTDRO 04:48 → 3W 04:48

== ENCOUNTER 2018-05-15 17:58 | Inpatient (IN) ==
[2018-05-15] MEDS ORDERED: MoRPHine SULFATE 4 MG/ML 1 ML CARP\\VIAL IV STA (18:13)
[2018-05-15] MEDS ORDERED: ONDANSETRON INJ 2 MG/ML 2 ML VIAL IV STA ×2 (18:13→21:16)
[2018-05-15] MEDS ORDERED: SODIUM CHLORIDE 0.9% 1000ML 1,000 ML IV SCH (18:15)
--- NOTE | 2018-05-15 18:28 | Emergency Department Note ---
ED Provider Note CHIEF COMPLAINT: Left flank pain HISTORY OF PRESENTING ILLNESS: Is a 52-year-old male with past medical history significant for hypertension and kidney stones, who presents to the emergency department by private vehicle with complaint of sudden onset of left-sided flank pain around 3 PM today. Patient has known proximal right ureteral stones, and had a right ureteral stent placed a month ago for this. He is scheduled to have the stone surgically removed tomorrow by Dr. Green. He has known left-sided renal stones as well. He has had associated nausea, but no vomiting. He has been having dysuria and hematuria, but states this has been ongoing since the discovery of his right-sided kidney stones. He denies any fevers or chills. He denies any diarrhea or constipation and had a normal bowel movement this morning. He denies any bloody or black stools. He denies any chest pain, shortness of breath, dizziness or syncope, or unusual rash. REVIEW OF SYSTEMS: A complete 10 point review of systems was reviewed with the patient with pertinent positives and negatives as per history of present illness. All else were negative. PAST MEDICAL HISTORY: Hypertension, kidney stones SOCIAL HISTORY: Lives at home with family, he denies tobacco use ALLERGIES: No known allergies PHYSICAL EXAM: CONSTITUTIONAL: Pleasant and cooperative. Nontoxic in appearance and in no acute distress, but appears uncomfortable from pain. Mildly dehydrated. HEENT: Normocephalic, atraumatic. PERRL, EOMI. Pharynx normal. Tacky mucous membranes. NECK: Supple, full active range of motion without discomfort. RESPIRATORY: Clear to auscultation bilaterally with no wheezing, crackles, rhonchi or stridor. Equal expansion bilaterally. CARDIOVASCULAR: Regular rate and rhythm with no murmurs, rubs or gallops. Normal peripheral perfusion. No edema. GASTROINTESTINAL: Tenderness to palpation of the left flank and left mid and lower quadrant with guarding. No rebound tenderness. Soft, nondistended, obese abdomen. No palpable masses or HSM. Bowel sounds present in all quadrants. Left CVA tenderness to percussion. MUSCULOSKELETAL: Full range of motion of all joints without discomfort. INTEGUMENTARY: No rash or other significant dermatologic conditions noted. NEUROLOGIC: Alert and oriented X 4 with normal affect. Normal speech. Normal gait observed. ED COURSE AND MEDICAL DECISION MAKING: CC: Patient presenting with complaint of left flank pain DIFFERENTIAL DIAGNOSIS: Includes, but not limited to ureteral stone, UTI, pyelonephritis, diverticulitis, SBO, ileus, among others. INTERPRETATION OF LABS: No leukocytosis, no anemia, normal platelets, no significant electrolyte abnormalities, normal renal function, normal liver enzymes and lipase. UA is turbid, and appears grossly contaminated, culture pending. IMAGING: KUB HISTORY: Acute left flank pain left flank pain, hx of kidney stones COMPARISON: KUB 04/30/2018 FINDINGS: The bowel gas pattern is non-obstructive. There is no organomegaly. Right-sided ureteral stent appears to be in satisfactory positioning. There are 2 nonobstructing calculi noted about the inferior pole right kidney, largest of which measures 7 mm. Additional calculi noted about the superior pole right kidney with left nephrolithiasis also noted. Possible 4 mm calculus about the mid to distal portion of the right ureteral stent. There is a additional possible 4 mm calculus within the proximal portion of the right stent at the level of L4.. No pneumoperitoneum or pneumatosis. No fracture. IMPRESSION: 1. Bilateral nephrolithiasis redemonstrated. 2. Right ureteral stent appears to be in satisfactory positioning. There are two possible ureteral calculi noted along the course of the right stent as above. ----- US renal/blad retro comp HISTORY: 52 years-old Male left flank pain, hx of kidney stones acute left- sided flank pain COMPARISON: CT abdomen pelvis 04/13/2018 TECHNIQUE: Multiple real-time sonographic images of the kidneys and urinary bladder were obtained assessing grayscale appearance and color flow FINDINGS: The right kidney measures 14.8 x 8.3 x 7.7 cm mild to moderate right-sided hydronephrosis. 8 mm nonobstructing calculus of the superior pole right kidney. Cyst of the inferior pole right kidney, 4.2 cm. Left kidney measures 13.3 x 7.7 x 9.2 cm demonstrates trace perinephric edema. Mild left-sided pelviectasis without ivelisse hydronephrosis. Previously noted punctate calculus of the superior pole left kidney not definitively seen. Partial distention of the urinary bladder. Ureteral jets not identified. IMPRESSION: 1. Mild to moderate right-sided hydronephrosis. 2. 8 mm nonobstructing calculus of the superior pole right kidney. 3. Mild left-sided pelviectasis. Previously noted punctate nonobstructing calculus of the superior pole left kidney not identified. 4. Decompressed urinary bladder lumen. ----- ABDOMEN AND PELVIS CT WITHOUT CONTRAST CT DOSE: 1872.38 mGy.cm HISTORY: Acute left-sided flank pain left flank pain TECHNIQUE: Multiaxial CT images of the abdomen and pelvis were performed without contrast. A dose lowering technique was utilized adhering to the principles of ALARA. COMPARISON STUDY: CT abdomen pelvis 04/13/2018 FINDINGS: Unchanged 5 mm solid nodule of the basal left lower lobe. Additional lingular solid pulmonary nodules are seen measuring up to 3 mm. No pneumatosis or pneumoperitoneum. The imaged inferior cardiac chambers are unremarkable with coronary arterial calcifications noted. Hepatic steatosis without evidence of cirrhosis. Liver is otherwise unremarkable. The gallbladder, spleen, pancreas and adrenal glands appear unremarkable. Moderate to severe left and mild to moderate right perinephric inflammatory stranding. Cortical scarring with parenchymal thinning about the interpolar right kidney. 5 mm nonobstructing calculus of the interpolar right kidney is also noted. A right ureteral stent appears to be in satisfactory positioning. Mild right-sided hydronephrosis. There are 2 calculi noted about t he dependent right renal pelvis measuring up to 7 mm with an additional 3 mm calculus about the right mid ureter on image 287 series 3. There are least 3 calculi about the distal right ureter measuring up to 4 mm (please see bookmarks). Mild to moderate left-sided hydroureteronephrosis secondary to a 6 x 5 x 6 mm calculus of the distal left ureter approximately 3 cm proximal to the ureterovesicular junction. Prostate is unremarkable. Small fat filled bilateral hernias. Aorta and IVC are unremarkable. No adenopathy. There is no bowel obstruction or focal bowel wall thickening. Colonic diverticulosis without acute diverticulitis. Terminal ileum and appendix appear normal. Soft tissues appear unremarkable. The bones appear to be intact. Left-sided gynecomastia. Degenerative changes of the spine. Grade 1 anterolisthesis L5 on S1 with remote appearing bilateral L5 pars defects. IMPRESSION: 1. Mild to moderate left-sided hydroureteronephrosis with moderate to marked associated perinephric inflammatory stranding secondary to a 6 x 5 x 5 mm calculus of the distal left ureter approximately 3 cm proximal to the ureterovesicular junction. 2. Mild right-sided hydroureteronephrosis with satisfactory positioning of the right ureteral stent. Multiple calculi noted about the right renal pelvis and right ureter as above. 3. Right nephrolithiasis with cortical scarring and parenchymal thinning of the interpolar distribution. 4. Additional findings as above. MEDICATION RECONCILIATION: I attest that I have personally reviewed the patient's current medication list. INITIAL VITAL SIGNS REVIEW: I reviewed the patient's initial vital signs and interpret them as follows: T: Afebrile; BP: Hypertensive; HR: Within normal limits; RR: Within normal limits; Pulse Ox: Within normal limits on room air. Blood pressure screening: The patient was found to have an elevated blood pressure, which was felt to be situational. MDM SUMMARY: Patient was evaluated at bedside, history and physical exam performed. Patient is alert and oriented, in no acute distress, but appears significantly uncomfortable from pain, writhing around in the stretcher and holding his left side. Patient has tenderness to palpation of the left flank and left lower quadrant abdomen. The remaining abdomen is benign. Bilateral CVA tenderness to percussion. He is afebrile and vital signs are stable. He is noted to be hypertensive, which I suspect is situational due to his pain. Recent CT abdomen/pelvis from 04/13/2018 was reviewed in his chart, noting the large proximal right ureteral stones. There are also several stones noted with in the left kidney at the time of that exam. Orders were placed at bedside for labs, UA, IV fluid bolus for hydration, IV morphine for pain, KUB and renal ultrasound to evaluate for kidney stone. Patient discussed with Dr. Tovar, who agrees with my assessment, plan, and disposition. Nursing called stating the patient is still having a lot of pain, and additional dose of IV morphine plus a dose of IV Tylenol was ordered. Labs and imaging reviewed as above. No leukocytosis, renal function at baseline. UA appears grossly contaminated, culture pending. Ultrasound does indicate some left-sided hydronephrosis and absence of the previously noted stone in the left kidney. KUB did not provide any definitive information regarding the left, but the right-sided stent appears to be in good positioning. I reassessed the patient and discussed all of his results with him. He states his pain is not significantly better and he is still having some nausea, though he has not been vomiting. He is concerned about being discharged home due to his significant pain. He remains exquisitely tender to palpation in the left flank and left lower quadrant. Given his persistent severe pain, I did opt to order a CT of the abdomen/pelvis for further evaluation. Patient was given an additional dose of IV Zofran and [address] reviewed, noting a 6 mm distal stone with moderate left hydronephrosis and perinephric stranding. Given this finding in addition to the existing right sided stones and stents, decision was made to cover the patient with empiric IV Rocephin 1 g. Patient reassessed multiple times throughout ED stay, he has remained hemodynamically stable and afebrile, but continues to complain of poor pain control. I spoke with Dr. Pacheco, [facility] hospitalist, who agrees to admit the patient overnight for pain control, pending his scheduled urology surgery in the morning. I did also speak on the phone with Dr. Antony, urology, at the request of Dr. Pacheco, and informed him of the patient's admission to help facilitate his surgery in the morning. He agreed with this plan. The patient and his were updated on all results and plan for admission, they verbalized understanding and were very happy with this plan. Patient was stable at time of admission. The chart was completed utilizing [email or web address] Speech voice recognition software. Grammatical errors, random word insertions, pronoun errors, and incomplete sentences are an occasional consequence of this system due to software limitations, ambient noise, and hardware issues. Any formal questions or concerns about the content, text, or information contained within the body of this dictation should be directly addressed to the nurse practitioner for clarification. Impression & Plan Acute left flank pain, Renal colic on left side Past Med/Surg History Medical History HTN (hypertension) Hydronephrosis Kidney stones Morbid obesity Osteoarthritis Surgical History History of colonoscopy History of cystoscopy WITH STONE EXTRACTION/STENT History of lithotripsy X2; RIGHT ESWL= 04/26/18= LMA#5 AT [facility] [place] Social History Preferred Language: Slovenian Communication Ability: Effective Beliefs That Will Affect Care: None Current Living Situation: Spouse and Family Feels Safe at Home: Yes Smoking Status: Never smoker Hx Alcohol Use: No Hx Substance Use: No Results & Data Vital Signs Vital Signs - 24 hr 05/15/18 18:00 05/15/18 18:47 05/15/18 22:11 Temperature 36.9 C Temperature Source Oral Sepsis Recent Fever Within 48 Hours No Sepsis New/Unexplained Change in Mental Status No Sepsis Action Taken by Nursing No Action Required Pulse Rate 78 84 Pulse Rate [Right Finger] 89 Pulse Rhythm Regular Pulse Rhythm [Right Finger] Regular Pulse Strength [Right Finger] Normal Respiratory Rate 20 22 18 Respiratory Effort / Characteristics Non-Labored Spontaneous Respiratory Depth Normal Respiratory Pattern Regular Blood Pressure 160/102 H Blood Pressure [Right Arm] 160/96 H Blood Pressure Mean 121 Blood Pressure Mean [Right Arm] 117 Blood Pressure Position [Right Arm] Lying Pulse Oximetry 99 100 98 Oxygen Delivery Method Room Air Room Air Room Air 05/15/18 23:42 Temperature Temperature Source Sepsis Recent Fever Within 48 Hours Sepsis New/Unexplained Change in Mental Status Sepsis Action Taken by Nursing Pulse Rate Pulse Rate [Right Finger] 87 Pulse Rhythm Pulse Rhythm [Right Finger] Regular Pulse Strength [Right Finger] Normal Respiratory Rate 18 Respiratory Effort / Characteristics Non-Labored Spontaneous Respiratory Depth Normal Respiratory Pattern Blood Pressure Blood Pressure [Right Arm] 153/85 H Blood Pressure Mean Blood Pressure Mean [Right Arm] 107 Blood Pressure Position [Right Arm] Pulse Oximetry 99 Oxygen Delivery Method Room Air Laboratory Data Result diagrams: 05/15/18 18:25 05/15/18 18:25 Lab Results 05/15/18 05/15/18 05/15/18 Range/Units 18:25 18:25 18:35 WBC 10.48 (4.8-10.8) K/uL RBC 5.02 (4.7-6.1) M/uL Hgb 15.4 (14.0-18.0) g/dL Hct 44.2 (42-52) % MCV 88.0 (80-100) fL MCH 30.7 (25-34) pg MCHC 34.8 (32-36) g/dL RDW Std Deviation 41.6 (36.4-46.3) fL RDW Coeff of Barbie 13.0 (11.5-14.5) % Plt Count 217 (130-400) K/uL MPV 10.9 H (7.4-10.4) fL Immature Gran % (Auto) 0.2 % Neut % (Auto) 77.5 % Lymph % (Auto) 13.1 % [facility] % (Auto) 8.0 % Eos % (Auto) 0.9 % Baso % (Auto) 0.3 % Immature Gran # (Auto) 0.02 (0.00-0.02) K/uL Neut # (Auto) 8.13 H (1.4-6.5) K/uL Lymph # (Auto) 1.37 (1.2-3.4) K/uL [facility] # (Auto) 0.84 H (0.11-0.59) K/uL Eos # (Auto) 0.09 (0-0.5) K/uL Baso # (Auto) 0.03 (0-0.2) K/uL Sodium 137 (136-145) mmol/L Potassium 3.8 (3.5-5.1) mmol/L Chloride 106 (98-107) mmol/L Carbon Dioxide 25 (21-32) mmol/L Anion Gap 6.0 (3-11) BUN 15 (7-18) mg/dl Creatinine 1.36 (0.6-1.4) mg/dl Est Cr Clr Drug Dosing 89.2 ml/min Est GFR ( Amer) 68.8 Est GFR (Non-Af Amer) 59.4 BUN/Creatinine Ratio 10.7 (10-20) Glucose 138 H (70-99) mg/dl Calcium 9.3 (8.5-10.1) mg/dl Total Bilirubin 0.7 (0.2-1) mg/dl AST 40 H (15-37) U/L ALT 45 (12-78) U/L Alkaline Phosphatase 69 (45-117) U/L Total Protein 7.9 (6.4-8.2) gm/dl Albumin 4.0 (3.4-5.0) gm/dl Globulin 3.9 (2.5-4.0) gm/dl Albumin/Globulin Ratio 1.0 (0.9-2) Lipase 129 (73-393) U/L Urine Color Red Urine Appearance Turbid H (Clear) Urine pH (4.5-7.5) Ur Specific Jansen 1.021 (1.000-1.030) Urine Protein (Negative) Urine Glucose (UA) (Negative) Urine Ketones (Negative) Urine Blood (Negative) Urine Nitrite (Negative) Urine Bilirubin (Negative) Urine Urobilinogen (Negative) Ur Leukocyte Esterase (Negative) Urine RBC >30 H (0-4) /hpf Urine WBC >30 H (0-5) /hpf Ur Epithelial Cells >30 H (0-5) /lpf Ur Renal Epithelial Cell 10-20 H (0-5) /lpf Urine Bacteria 1+ H (Negative) Hyaline Casts 10-30 H (0-5) /lpf Administered Medications Sodium Chloride (Nss 1000ml) 1,000 mls @ 125 mls/hr IV .Q8H AIDAN Stop: 06/14/18 22:44 Last Admin: 05/15/18 22:41 Dose: 125 mls/hr Documented by: [id number] Discontinued Medications Hydromorphone HCl (Dilaudid) 1 mg IV NOW STA Stop: 05/15/18 22:20 Last Admin: 05/15/18 22:45 Dose: Not Given Documented by: [id number] Sodium Chloride (Nss 1000ml) 1,000 mls @ 999 mls/hr IV .Q1H1M AIDAN Stop: 05/15/18 19:15 Last Infusion: 05/15/18 19:26 Dose: 0 mls/hr Documented by: [id number] Admin: 05/15/18 18:33 Dose: 999 mls/hr Documented by: [id number] Acetaminophen (Ofirmev) 1,000 mg in 100 mls @ 400 mls/hr IV NOW STA Stop: 05/15/18 20:00 Last Infusion: 05/15/18 20:13 Dose: 0 mls/hr Documented by: [id number] Admin: 05/15/18 19:58 Dose: 400 mls/hr Documented by: [id number] Ceftriaxone Sodium (Rocephin) 1,000 mg in 50 mls @ 100 mls/hr IV NOW STA Stop: 05/15/18 23:18 Last Infusion: 05/15/18 23:34 Dose: 0 mls/hr Documented by: [id number] Admin: 05/15/18 22:56 Dose: 100 mls/hr Documented by: [id number] Morphine Sulfate (Morphine Sulfate) 6 mg IV NOW STA Stop: 05/15/18 18:14 Last Admin: 05/15/18 18:33 Dose: 6 mg Documented by: [id number] Morphine Sulfate (Morphine Sulfate) Confirm Administered Dose 2 mg .ROUTE .STK- MED ONE Stop: 05/15/18 18:30 Last Admin: 05/15/18 18:36 Dose: Not Given Documented by: [id number] Morphine Sulfate (Morphine Sulfate) 6 mg IV NOW STA Stop: 05/15/18 19:47 Last Admin: 05/15/18 19:59 Dose: 6 mg Documented by: [id number] Morphine Sulfate (Morphine Sulfate) Confirm Administered Dose 4 mg .ROUTE .STK- MED ONE Stop: 05/15/18 19:52 Last Admin: 05/15/18 19:58 Dose: Not Given Documented by: [id number] Morphine Sulfate (Morphine Sulfate) Confirm Administered Dose 2 mg .ROUTE .STK- MED ONE Stop: 05/15/18 19:52 Last Admin: 05/15/18 19:58 Dose: Not Given Documented by: [id number] Ondansetron HCl (Zofran) 4 mg IV NOW STA Stop: 05/15/18 18:14 Last Admin: 05/15/18 18:33 Dose: 4 mg Documented by: [id number] Ondansetron HCl (Zofran) 4 mg IV NOW STA Stop: 05/15/18 21:17 Last Admin: 05/15/18 21:24 Dose: 4 mg Documented by: [id number] Oxycodone HCl (Roxicodone Immediate Rel) 10 mg PO NOW STA Stop: 05/15/18 21:16 Last Admin: 05/15/18 21:24 Dose: 10 mg Documented by: [id number] Discharge Plan Visit Data Chief Complaint: Kidney Stone Stated Complaint: FLANK PAIN, KIDNEY STONES ED Provider: Ninoska Tovar ED Midlevel Provider: Naye Matta Discharge Problem: Acute left flank pain, Renal colic on left side Patient Disposition: Home - Self-Care Condition: Good Discharge Instructions Krames/Other Patient Handouts: ED Stone Renal W Colic Activity Restrictions/Additional Instructions: You have been evaluated and treated in the Emergency Department today for your left flank pain, which is most likely from a kidney stone. You have received pain medicine in the emergency department which impairs your ability to operate a vehicle. It is illegal for you to drive after receiving these medicines. You may continue using your prescribed oxycodone 5 mg tablets 1 tablet every 4-6 hours as needed for SEVERE pain. []You have been prescribed [] to be used for any nausea or vomiting. Take as prescribed. For mild to moderate pain control, you can use the following [id number] medicines (if >12 yo): - Regular strength (325mg/tab) Tylenol (acetaminophen) 2 tabs every 4-6 hours as needed. Do not exceed 10 tablets in a 24 hour period. Avoid taking more than 3000 mg of Tylenol per day. This includes any other sources of acetaminophen you may take on a regular basis. - Regular strength (200 mg/tab) Advil (ibuprofen) 3 tabs every 6 hours as needed. Do not exceed a dose of 2400 mg per day. Keep your scheduled appointment tomorrow to see the urologist. Return to the Emergency Department sooner if your symptoms worsen, including severe worsening pain that is not manageable with medications, development of fevers >101, if you are unable to urinate for more than 8 hours, severe dizziness or passing out, persistent nausea/vomiting and unable to keep down fluids, or for any other concerns. Forms Stand Alone Forms: My [facility], Important Visit Information Prescriptions Prescriptions: No Action losartan 50 mg Tablet 50 mg PO QAM RF: 0 cholecalciferol (vitamin D3) [Vitamin D3] 2,000 unit Capsule 4,000 unit PO QAM RF: 0 multivitamin Tablet 1 tab PO QAM RF: 0 tamsulosin 0.4 mg capsule 0.4 mg PO QPM RF: 0 docusate sodium [Stool Softener] 100 mg Capsule 100 mg PO DAILY RF: 0 oxycodone 5 mg Tablet 5 mg PO Q8 PRN (Reason: Pain) RF: 0 Referrals Referrals: Christel Ying DO [Primary Care Provider] - Alvarado Green II, DO [Physician] -
[2018-05-15] MEDS ORDERED: MoRPHine SULFATE 2 MG/ML CARP ONE ×2 (18:29→19:51)
[2018-05-15 18:46] LABS: Basophils # (auto) 0.03 K/uL (0-0.2); Basophils % (auto) 0.3 %; Eosinophils # (auto) 0.09 K/uL (0-0.5); Eosinophils % (auto) 0.9 %; Hematocrit (blood only) 44.2 % (42-52); Hemoglobin 15.4 g/dL (14.0-18.0); Immature Granulocytes # (auto) 0.02 K/uL (0.00-0.02); Immature Granulocytes % (auto) 0.2 %; Lymphocytes # (auto) 1.37 K/uL (1.2-3.4); Lymphocytes % (auto) 13.1 %; Mean Corpuscular Hgb Conc 34.8 g/dL (32-36); Mean Platelet Volume 10.9 fL (7.4-10.4); Monocytes # (auto) 0.84 K/uL (0.11-0.59); Neutrophils # (auto) 8.13 K/uL (1.4-6.5); Neutrophils % (auto) 77.5 %; Platelet Count 217 K/uL (130-400); RDW Standard Deviation 41.6 fL (36.4-46.3); Red Blood Count 5.02 M/uL (4.7-6.1); White Blood Count 10.48 K/uL (4.8-10.8)
[2018-05-15 19:04] LABS: BUN Creatinine Ratio 10.7 (10-20); Calcium 9.3 mg/dl (8.5-10.1); Creatinine Clr Calc Pharmacy 89.2 ml/min; Est GFR (African American) 68.8; Est GFR (Non-African American) 59.4; Potassium 3.8 mmol/L (3.5-5.1)
[2018-05-15 19:07] LABS: Bilirubin,Total 0.7 mg/dl (0.2-1); Globulin 3.9 gm/dl (2.5-4.0); Total Protein 7.9 gm/dl (6.4-8.2)
[2018-05-15 19:09] LABS: Appearance Urine Turbid (Clear); Color Urine Red; Ictotest Urine Negative (Negative); Specific Gravity Urine 1.021 (1.000-1.030)
[2018-05-15 19:18] LABS: Bacteria Urine 1+ (Negative); Epithelial Cell Urine >30 /lpf (0-5); RBC Urine >30 /hpf (0-4); WBC Urine >30 /hpf (0-5)
--- NOTE | 2018-05-15 19:42 | Ultrasound Report ---
US renal/blad retro comp HISTORY: 52 years-old Male left flank pain, hx of kidney stones acute left-sided flank pain COMPARISON: CT abdomen pelvis 04/13/2018 TECHNIQUE: Multiple real-time sonographic images of the kidneys and urinary bladder were obtained ass essing grayscale appearance and color flow FINDINGS: The right kidney measures 14.8 x 8.3 x 7.7 cm mild to moderate right-sided hydronephrosis. 8 mm nonob structing calculus of the superior pole right kidney. Cyst of the inferior pole right kidney, 4.2 cm. Left kidney measures 13.3 x 7.7 x 9.2 cm demonstrates trace perinephric edema. Mild left-sided pelvie ctasis without ivelisse hydronephrosis. Previously noted punctate calculus of the superior pole left kid julian not definitively seen. Partial distention of the urinary bladder. Ureteral jets not identified. IMPRESSION: 1. Mild to moderate right-sided hydronephrosis. 2. 8 mm nonobstructing calculus of the superior pole right kidney. 3. Mild left-sided pelviectasis. Previously noted punctate nonobstructing calculus of the superior po le left kidney not identified. 4. Decompressed urinary bladder lumen. The above report was generated using voice recognition software. It may contain grammatical, syntax o r spelling errors. Electronically signed by: Ulices Neville M.D. 05/15/2018 7:41 PM
[2018-05-15] MEDS ORDERED: ACETAMINOPHEN 1,000 MG/100 ML VIAL IV STA (19:46)
[2018-05-15] MEDS ORDERED: MoRPHine SULFATE 10 MG/ML CARP/VIAL IV STA (19:46)
--- NOTE | 2018-05-15 19:47 | XRay Report ---
KUB HISTORY: Acute left flank pain left flank pain, hx of kidney stones COMPARISON: KUB 04/30/2018 FINDINGS: The bowel gas pattern is non-obstructive. There is no organomegaly. Right-sided ureteral s tent appears to be in satisfactory positioning. There are 2 nonobstructing calculi noted about the in ferior pole right kidney, largest of which measures 7 mm. Additional calculi noted about the superior pole right kidney with left nephrolithiasis also noted. Possible 4 mm calculus about the mid to dist al portion of the right ureteral stent. There is a additional possible 4 mm calculus within the proxi mal portion of the right stent at the level of L4.. No pneumoperitoneum or pneumatosis. No fracture. IMPRESSION: 1. Bilateral nephrolithiasis redemonstrated. 2. Right ureteral stent appears to be in satisfactory positioning. There are two possible ureteral ca lculi noted along the course of the right stent as above Electronically signed by: Ulices Neville M.D. 05/15/2018 7:45 PM
[2018-05-15] MEDS ORDERED: MoRPHine SULFATE 4 MG/ML 1 ML CARP\\VIAL ONE (19:51)
[2018-05-15] MEDS ORDERED: OXYCODONE HCL IR 5 MG TAB (IMMEDIATE RELEASE) PO STA (21:15)
--- NOTE | 2018-05-15 22:11 | CT Scan Report ---
ABDOMEN AND PELVIS CT WITHOUT CONTRAST CT DOSE: 1872.38 mGy.cm HISTORY: Acute left-sided flank pain left flank pain TECHNIQUE: Multiaxial CT images of the abdomen and pelvis were performed without contrast. A dose lo wering technique was utilized adhering to the principles of ALARA. COMPARISON STUDY: CT abdomen pelvis 04/13/2018 FINDINGS: Unchanged 5 mm solid nodule of the basal left lower lobe. Additional lingular solid pulmonary nodules are seen measuring up to 3 mm. No pneumatosis or pneumoperitoneum. The imaged inferior cardiac chamb ers are unremarkable with coronary arterial calcifications noted. Hepatic steatosis without evidence of cirrhosis. Liver is otherwise unremarkable. The gallbladder, sp todd, pancreas and adrenal glands appear unremarkable. Moderate to severe left and mild to moderate r ight perinephric inflammatory stranding. Cortical scarring with parenchymal thinning about the interp olar right kidney. 5 mm nonobstructing calculus of the interpolar right kidney is also noted. A right ureteral stent appears to be in satisfactory positioning. Mild right-sided hydronephrosis. There are 2 calculi noted about the dependent right renal pelvis measuring up to 7 mm with an additional 3 mm calculus about the right mid ureter on image 287 series 3. There are least 3 calculi about the distal right ureter measuring up to 4 mm (please see bookmarks). Mild to moderate left-sided hydroureterone phrosis secondary to a 6 x 5 x 6 mm calculus of the distal left ureter approximately 3 cm proximal to the ureterovesicular junction. Prostate is unremarkable. Small fat filled bilateral hernias. Aorta and IVC are unremarkable. No adenopathy. There is no bowel obstruction or focal bowel wall thic kening. Colonic diverticulosis without acute diverticulitis. Terminal ileum and appendix appear viviana l. Soft tissues appear unremarkable. The bones appear to be intact. Left-sided gynecomastia. Degenera tive changes of the spine. Grade 1 anterolisthesis L5 on S1 with remote appearing bilateral L5 pars d efects. IMPRESSION: 1. Mild to moderate left-sided hydroureteronephrosis with moderate to marked associated perinephric i nflammatory stranding secondary to a 6 x 5 x 5 mm calculus of the distal left ureter approximately 3 cm proximal to the ureterovesicular junction. 2. Mild right-sided hydroureteronephrosis with satisfactory positioning of the right ureteral stent. Multiple calculi noted about the right renal pelvis and right ureter as above. 3. Right nephrolithiasis with cortical scarring and parenchymal thinning of the interpolar distributi on. 4. Additional findings as above. Electronically signed by: Ulices Neville M.D. 05/15/2018 10:09 PM
[2018-05-15] MEDS ORDERED: HYDROmorphone INJ 1 MG/ML SYRINGE IV STA (22:19)
[2018-05-15] MEDS: SODIUM CHLORIDE 0.9% 1000ML 1,000 ML IV SCH (22:41)
[2018-05-15] MEDS ORDERED: cefTRIAXone SODIUM 1,000 MG/50 ML BAG IV STA (22:49)
--- NOTE | 2018-05-15 23:38 | History & Physical Report ---
Date of Service May 15, 2018 Assessment & Plan (1) Acute left flank pain: Mr. Carlin is a 52-year-old gentleman with a history of hypertension and kidney stones who presents to the emergency department due to sudden onset of left flank pain. ED course: 1 L normal saline bolus, 1 g IV acetaminophen, 4 mg IV Zofran x2, 1 g IV Rocephin, 10 mg oxycodone, 6 mg IV morphine sulfate x2, 1 mg IV Dilaudid -Admit to med/surg -CT of the abdomen and pelvis shows left-sided hydroureteronephrosis with perinephric inflammatory stranding, and a 6 x 5 x 5 mm calculus of the distal left ureter. Also showed mild right-sided hydroureteronephrosis with a right- sided ureteral stent. -Urology consulted, and made aware that patient was in the hospital -N.p.o. for procedure tomorrow -Pain control with 1 g IV Tylenol every 8 hours as needed and 1 mg IV Dilaudid every 4 hours as needed -1g IV Rocephin ordered q24h -urine culture pending -creatinine 1.36 today - improved from 1.44 on 05/02 - likely related to obstructive process -Antiemetics4 mg Zofran every 6 hours IV as needed -Continue stool softeners once patient is able to take p.o. again Hypertension -continue home losartan after procedure CODE STATUS: Full Disposition: Admit to med/surg DVT prophylaxis: SCDs. Chemoprophylaxis contraindicated given patient will go for procedure tomorrow F/E/N: N.p.o. No electrolyte abnormalities noted. Normal saline at 125 mLs per hour. (2) Renal colic on left side: (3) Ureteral calculus, right: (4) Hypertension: History of Present Illness Primary Care Provider: Christel Ying DO Mr. Carlin is a 52-year-old gentleman with a history of hypertension and kidney stones who presents to the emergency department due to sudden onset of left flank pain. He had a stent placed for right-sided kidney stones 1 month ago, and is due to have surgery to have the stent removed tomorrow. He states that on his way home from work, he had a sudden onset of left-sided sharp flank pain that "hit him like a rock." He notes that the pain was unbearable, constant, and was associated with nausea. He denies any vomiting, fever, chills. He states that he has not had any right-sided flank pain since the stent was placed. He does endorse having hematuria, off and on since his stent was placed 1 month ago. He denies any clots in his urine. He also endorses mild dysuria, and poor stream since his stent was placed. He states that prior to these two episodes of kidney stones, his last kidney stone was approximately 8 years ago. He states that he had a stent placed for that, and that was removed 10 days later. He has not had problems since then. Of note, he has 2 brothers who also have a history of kidney stones. Mr. Carlin is a non-smoker, does not frequently consume alcohol [except for beer last night - his first in 6 years], does not use recreational drugs. Allergies Allergy/AdvReac Type Severity Reaction Status Date / Time No Known Allergies Allergy Verified 05/15/18 18:32 Home Medications Home Medications Medication Instructions Recorded Confirmed Type cholecalciferol (vitamin D3) 4,000 unit PO QAM 04/13/18 05/15/18 History [Vitamin D3] losartan 50 mg PO QAM 04/13/18 05/15/18 History multivitamin 1 tab PO QAM 04/16/18 05/15/18 History tamsulosin 0.4 mg PO QPM 05/08/18 05/15/18 History docusate sodium [Stool Softener] 100 mg PO DAILY 05/15/18 05/15/18 History oxycodone 5 mg PO Q8 PRN 05/15/18 05/15/18 History Past Med/Surg History Medical History HTN (hypertension) Hydronephrosis Kidney stones Morbid obesity Osteoarthritis Surgical History History of colonoscopy History of cystoscopy WITH STONE EXTRACTION/STENT History of lithotripsy X2; RIGHT ESWL= 04/26/18= [place] [facility] [place] History Communication Ability: Effective Molecular Genetic Pathologist Required: No Beliefs That Will Affect Care: None Current Living Situation: Spouse Other Information That Helps Us Care for You: No Feels Safe at Home: Yes Safety Concerns: Feels Safe At This Time Smoking Status: Never smoker Hx Alcohol Use: No Hx Substance Use: No Review of Systems Constitutional: no fever and no chills Respiratory: no cough and no wheezing Cardiovascular: no chest pain, no palpitations and no calf pain Gastrointestinal: + abdominal pain and + nausea; no vomiting and no change in bowel habits (Has been requiring the use of stool softeners since using opioids at home) Left-sided flank pain Genitourinary (Male): + dysuria, + urinary frequency, + urinary hesitancy, + hematuria and + flank pain; no scrotal swelling Physical Exam Vital Signs (Past 24 Hours): Last Vital Signs Temp 36.9 C 05/15/18 18:00 Pulse 89 05/15/18 22:11 Resp 18 05/15/18 22:11 BP 160/96 H 05/15/18 22:11 Pulse Ox 98 05/15/18 22:11 Constitutional: WD/WN, vitals as above + morbidly obese and cooperative Laying flat on his back, looks uncomfortable ENMT: external ear and nose normal, oropharynx normal Respiratory: normal respiratory effort, lungs clear to auscultation Cardiovascular: RRR, no murmur, no edema Gastrointestinal (Abdomen): Percussion/Palpation: abdomen soft; abdomen nontender, no guarding and abdomen not rigid Left-sided flank tenderness. No right-sided flank tenderness. Skin: no rashes, warm and dry Psychiatric: A+Ox3, euthymic affect Results & Data Laboratory Results Laboratory Results - last 24 hr 05/15/18 05/15/18 05/15/18 18:25 18:25 18:35 WBC 10.48 RBC 5.02 Hgb 15.4 Hct 44.2 MCV 88.0 MCH 30.7 MCHC 34.8 RDW Std Deviation 41.6 RDW Coeff of Barbie 13.0 Plt Count 217 MPV 10.9 H Immature Gran % (Auto) 0.2 Neut % (Auto) 77.5 Lymph % (Auto) 13.1 Gray % (Auto) 8.0 Eos % (Auto) 0.9 Baso % (Auto) 0.3 Immature Gran # (Auto) 0.02 Neut # (Auto) 8.13 H Lymph # (Auto) 1.37 Gray # (Auto) 0.84 H Eos # (Auto) 0.09 Baso # (Auto) 0.03 Sodium 137 Potassium 3.8 Chloride 106 Carbon Dioxide 25 Anion Gap 6.0 BUN 15 Creatinine 1.36 Est Cr Clr Drug Dosing 89.2 Est GFR ( Amer) 68.8 Est GFR (Non-Af Amer) 59.4 BUN/Creatinine Ratio 10.7 Glucose 138 H Calcium 9.3 Total Bilirubin 0.7 AST 40 H ALT 45 Alkaline Phosphatase 69 Total Protein 7.9 Albumin 4.0 Globulin 3.9 Albumin/Globulin Ratio 1.0 Lipase 129 Urine Color Red Urine Appearance Turbid H Urine pH Ur Specific [place] 1.021 Urine Protein Urine Glucose (UA) Urine Ketones Urine Blood Urine Nitrite Urine Bilirubin Urine Urobilinogen Ur Leukocyte Esterase Urine RBC >30 H Urine WBC >30 H Ur Epithelial Cells >30 H Ur Renal Epithelial Cell 10-20 H Urine Bacteria 1+ H Hyaline Casts 10-30 H Supervising Physician Co-Signing Physician Notes Attending addendum: I have physically seen this patient, have supervised the medical residents activities, and agree with the H&P unless as otherwise noted. Assessment and Plan: Distal left ureteral stone 6 x 5 x 5 mm causing acute left flank pain/left-sided hydroureteronephrosis with perinephric inflammatory stranding/due for right ureteral stent removal tomorrow-- Admit to [facility]. NPO Ceftriaxone 1 g IV daily. Follow urine culture and sensitivities. Zofran 4 mg IV every 6 hours as needed. Pantoprazole 40 mg IV daily. Acetaminophen 1 g IV every 8 hours as needed mild pain or temperature. Dilaudid 1 mg IV every 4 hours as needed severe pain. Consult urology Dr. Green. Remainder of orders and notations as noted. Resident Activity Tracking Resident Involvement: Resident Care Provided Care Provided: [facility]
[2018-05-16] MEDS ORDERED: ONDANSETRON INJ 2 MG/ML 2 ML VIAL IV PRN (00:30)
[2018-05-16] MEDS ORDERED: ACETAMINOPHEN 1,000 MG/100 ML VIAL IV PRN (00:30)
[2018-05-16] MEDS ORDERED: POLYETHYLENE (MIRALAX) 17 GM PACK PO PRN (00:30)
[2018-05-16] MEDS: HYDROmorphone INJ 1 MG/ML SYRINGE IV PRN ×2 (00:56→07:48)
[2018-05-16] MEDS: SODIUM CHLORIDE 0.9% 1000ML 1,000 ML IV SCH ×3 (05:32→23:35)
[2018-05-16] MEDS ORDERED: INFLUENZA ADMINISTRATION CHARGE ONE ×2 (06:30→09:00)
[2018-05-16] MEDS ORDERED: INFLUENZA VIRUS QUAD VACCINE 0.5 ML SYR IM ONE ×2 (06:30→09:00)
[2018-05-16] MEDS: CHOLECALCIFEROL 1,000 UNITS TAB PO SCH (08:35)
[2018-05-16] MEDS: DOCUSATE SODIUM 100 MG CAP PO SCH (08:35)
[2018-05-16] MEDS: MULTIVITAMIN TAB PO SCH (08:35)
--- NOTE | 2018-05-16 08:36 | Urology Consultation ---
Date of Consultation May 16, 2018 Assessment & Plan (1) Acute left flank pain: (2) Renal colic on left side: (3) Ureteral calculus, right: 52yo M with known bilateral nephrolithiasis with planned cysto, URS, LL, R stent exchange today presents with acute onset L flank pain. CT imaging reveals new distal 6mm L ureteral stone. Pt has passed small 2mm fragment of stone, pain improved. Will check KUB stat to assess distal L stone positioning. Findings reviewed with Dr Green. Will proceed with OR today for cysto, R RPG and R stent placement, ureteroscopy, laser litho, stone basketing as scheduled and add possible Left RPG, URS, LL and basket stone extraction depending on findings and KUB results. Risks and benefits to be reviewed with patient by Dr. Green OR notified of change in patient status and procedure. Preoperative CXR and EKG completed preoperatively. Dr. Green aware patient has had IV Rocephin, will add IV Ciprofloxacin preoperatively (already ordered). History of Present Illness Reason for Consultation: Distal L stone Requesting Physician: Dr. Con Rogers Attending Physician: Flaco Rogers MD History of Present Illness 52yo M with history of nephrolithiasis and hypertension, presented to [facility] ED last evening with severe L flank pain. Pt is currently being cared for by our service with R ureteral stent in place. S/P R ESWL x2 in April. Planned cysto, R URS, laser litho, stent exchange today. CT now reveals additional obstructing 6Mmm L distal ureteral stone, R ureteral stent in good position. Pt nontoxic appearing, afebrile. VSS, Cr 1.36 on admission today. Pain controlled with IV medication last evening. NPO status. Pain is currently controlled at time of evaluation this AM. States he had some L groin pain then spontaneously voided small stone this AM, measured to be ~2mm. Reports some mild R stent irritation and light pink urine. Denies dysuria, urgency or frequency. Denies n/v. Denies chest pain, shortness of breath. Allergies Allergy/AdvReac Type Severity Reaction Status Date / Time No Known Allergies Allergy Verified 05/15/18 18:32 Home Medications Home Medications Medication Instructions Recorded Confirmed Type cholecalciferol (vitamin D3) 4,000 unit PO QAM 04/13/18 05/15/18 History [Vitamin D3] losartan 50 mg PO QAM 04/13/18 05/15/18 History multivitamin 1 tab PO QAM 04/16/18 05/15/18 History tamsulosin 0.4 mg PO QPM 05/08/18 05/15/18 History docusate sodium [Stool Softener] 100 mg PO DAILY 05/15/18 05/15/18 History oxycodone 5 mg PO Q8 PRN 05/15/18 05/15/18 History Patient History Medical History HTN (hypertension) Hydronephrosis Kidney stones Morbid obesity Osteoarthritis Surgical History History of colonoscopy History of cystoscopy WITH STONE EXTRACTION/STENT History of lithotripsy X2; RIGHT ESWL= 04/26/18= LMA#5 AT [facility] [place] Social History Communication Ability: Effective Process Designer Required: No Beliefs That Will Affect Care: None Current Living Situation: Spouse Other Information That Helps Us Care for You: No Feels Safe at Home: Yes Safety Concerns: Feels Safe At This Time Smoking Status: Never smoker Hx Alcohol Use: No Hx Substance Use: No Review of Systems Constitutional: no fever, no chills and no sweats Eyes: no problem reported Ear, Nose, Mouth, Throat: no ear pain, no tinnitus and no dizziness Respiratory: no cough and no dyspnea Cardiovascular: no chest pain Gastrointestinal: no abdominal pain, no nausea and no vomiting Genitourinary (Male): + hematuria; no dysuria, no difficulty urinating, no urinary frequency, no nocturia and no testicle pain L groin pain, R flank pain with stent irritation Musculoskeletal: no back pain Integumentary: no acne and no rash Neurologic: no gait abnormality, no falls, no numbness and no paresthesia Psychiatric: no behavioral changes Endocrine: no fatigue Hematologic / Lymphatic: no easy bleeding Allergy / Immunological: no lip swelling Physical Exam Vital Signs (Past 24 Hours): Last Vital Signs Temp 37.2 C 05/16/18 06:58 Pulse 83 05/16/18 06:58 Resp 18 05/16/18 06:58 BP 154/90 H 05/16/18 06:58 Pulse Ox 97 05/16/18 06:58 Constitutional: well developed and well nourished; no acute distress Eyes: no nystagmus ENMT: Ears: no hearing impairment and no external ear abnormality Respiratory: no respiratory distress and does not use accessory muscles Cardiovascular: Vessels: no JVD Extremities: no edema Gastrointestinal (Abdomen): Inspection/Auscultation: abdomen not distended and no abdominal edema Percussion/Palpation: abdomen soft; abdomen nontender Musculoskeletal: Head/Neck/Chest: normocephalic and head atraumatic Skin: no rashes, warm and dry Neurologic: awake; not confused and not obtunded Psychiatric: Orientation: alert and oriented x 3 Eye Contact: good eye contact Genitourinary: + CVA tenderness (mild, R sided) Lymphatic: no lymphadenopathy Results & Data Laboratory Results Laboratory Results - last 48 hr 05/15/18 05/15/18 05/15/18 18:25 18:25 18:35 WBC 10.48 RBC 5.02 Hgb 15.4 Hct 44.2 MCV 88.0 MCH 30.7 MCHC 34.8 RDW Std Deviation 41.6 RDW Coeff of Barbie 13.0 Plt Count 217 MPV 10.9 H Immature Gran % (Auto) 0.2 Neut % (Auto) 77.5 Lymph % (Auto) 13.1 [place] % (Auto) 8.0 Eos % (Auto) 0.9 Baso % (Auto) 0.3 Immature Gran # (Auto) 0.02 Neut # (Auto) 8.13 H Lymph # (Auto) 1.37 [place] # (Auto) 0.84 H Eos # (Auto) 0.09 Baso # (Auto) 0.03 Sodium 137 Potassium 3.8 Chloride 106 Carbon Dioxide 25 Anion Gap 6.0 BUN 15 Creatinine 1.36 Est Cr Clr Drug Dosing 89.2 Est GFR ( Amer) 68.8 Est GFR (Non-Af Amer) 59.4 BUN/Creatinine Ratio 10.7 Glucose 138 H Calcium 9.3 Total Bilirubin 0.7 AST 40 H ALT 45 Alkaline Phosphatase 69 Total Protein 7.9 Albumin 4.0 Globulin 3.9 Albumin/Globulin Ratio 1.0 Lipase 129 Urine Color Red Urine Appearance Turbid H Urine pH Ur Specific [place] 1.021 Urine Protein Urine Glucose (UA) Urine Ketones Urine Blood Urine Nitrite Urine Bilirubin Urine Urobilinogen Ur Leukocyte Esterase Urine RBC >30 H Urine WBC >30 H Ur Epithelial Cells >30 H Ur Renal Epithelial Cell 10-20 H Urine Bacteria 1+ H Hyaline Casts 10-30 H
[2018-05-16] MEDS ORDERED: LOSARTAN POTASSIUM 50 MG TAB PO SCH (09:00)
--- NOTE | 2018-05-16 09:34 | XRay Report ---
XR KUB CLINICAL HISTORY: L distal stone, ?spontaneous passage COMPARISON STUDY: CT 05/15/2018 FINDINGS: Possible unchanged position of a distal left ureteral calculus. Measurement is 4.5 x 4.1 cm . Right ureteral stent with several right ureteral or pelvic calcifications are again noted. IMPRESSION: 1. Unchanging right ureteral stent with several pelvic and a right ureteral calcifications. 2. Potential persistent distal left ureteral calculus The above report was generated using voice recognition software. It may contain grammatical, syntax or spelling errors. Electronically signed by: Simeon Carlin M.D. 05/16/2018 9:32 AM
[2018-05-16 09:47] LABS: Basophils # (auto) 0.02 K/uL (0-0.2); Basophils % (auto) 0.2 %; Eosinophils # (auto) 0.06 K/uL (0-0.5); Eosinophils % (auto) 0.5 %; Hematocrit (blood only) 41.4 % (42-52); Hemoglobin 14.5 g/dL (14.0-18.0); Immature Granulocytes # (auto) 0.03 K/uL (0.00-0.02); Immature Granulocytes % (auto) 0.2 %; Lymphocytes % (auto) 11.5 %; Mean Platelet Volume 10.5 fL (7.4-10.4); Monocytes # (auto) 1.76 K/uL (0.11-0.59); Monocytes % (auto) 13.5 %; Neutrophils # (auto) 9.71 K/uL (1.4-6.5); Neutrophils % (auto) 74.1 %; Platelet Count 200 K/uL (130-400); RDW Coefficient of Variation 13.3 % (11.5-14.5); RDW Standard Deviation 43.3 fL (36.4-46.3); Red Blood Count 4.65 M/uL (4.7-6.1); White Blood Count 13.08 K/uL (4.8-10.8)
[2018-05-16 10:26] LABS: BUN Creatinine Ratio 8.1 (10-20); Calcium 8.7 mg/dl (8.5-10.1); Creatinine Clr Calc Pharmacy 65.8 ml/min; Est GFR (African American) 46.8; Est GFR (Non-African American) 40.4; Potassium 3.9 mmol/L (3.5-5.1)
[2018-05-16] MEDS ORDERED: IOTHALAMATE MEGLUMINE II 17.2% 250 ML VIAL ONE (10:52)
[2018-05-16] MEDS: cefTRIAXone SODIUM 1,000 MG in DEXTROSE 5% 50 ML IV SCH (11:02)
[2018-05-16] MEDS ORDERED: LACTATED RINGER'S 1,000 ML IV SCH (11:15)
--- NOTE | 2018-05-16 12:11 | Operative Report ---
Post Operative Report Pre & Post Diagnosis Operation Date: 05/16/18 10:45 Pre-Op Diagnosis: Bilateral Kidney Stones Post-Op Diagnosis: Bilateral Kidney Stones Procedure Operation Date: 05/16/18 10:45 Actual Procedures p Cystoscopy, Left Semirigid Ureteronephroscopy with stone extraction and Laser Lithotripsy; Stent placement Right Flexible ureteroscopy with dilation, laser lithotripsy, and stent placement. Bilateral Retrograde pyelogram - Alvarado Green II, DO Surgeon Alvarado Green, II, DO Audit Lead None Estimated Blood Loss 3 Findings Consistent with Post-Op Diagnosis Severely impacted right stones with large debris and severe hydronephrosis. Specimens Stone left ureter urine right renal pelvis. Drains Bilateral 6 Fr multilength stents. Anesthesia Type General Complications none Disposition Disposition: Recovery Room Indications Large bilateral stones. Risks and benefits discssued. Description of Procedure Patient was consented and brought back to the operating room. Patient was placed under anesthesia in the supine position and moved to the dorsal lithotomy position. Patient was prepped and draped in the regular sterile fashion. A time out was completed. A 30degree Cystoscope was placed into the bladder and the entire bladder was examined. The UO's were identified. The UO on the left was cannulized with a catheter and a retrograde pyelogram was completed. A wire was then placed. A long semirigid scope was placed and taken to the large 6 mm obstructing stone. This was pulverized to dust and small fragments. These fragments were removed. The entire ureter was assessed and no further stone was discovered. Moderate irritation was noted throughout. The scope was slowly removed. A 6 Fr stent was placed after a retrograde pyelogram was completed. This was found to be in good position. The right UO with stent in place was then assessed. The stent was grasped and partially removed. A wire was placed. A ureteral access sheath and second safety wire was placed. The flexible ureteroscope was taken into the ureter. The entire ureter and renal pelvis were examined. Severe stone fragments with obstruction and impaction were noted throughout the ureter. A laser fiber was selected and the stones were pulverized to dust and small fragments. As the fragments passed, the patient developed mild hypotension and once the renal pelvis was able to be accessed a decent amoutn of possibly purulent debris was freed. This was drained. A sample was taken and sent for analysis. The pelvis was assessed. A decent amount of large fragments were in the pelvis and UPJ region. Due to concerns with possible purulent debris and the episode of mild hypotension, it was decided that since the ureter was cleared, a stent would be placed and the stones further treated at another time. The scope was slowly removed with the wire left in place. Contrast was placed through the scope for a pyelogram to assist in stent placement. The entire ureter was examined as the scope was slowly removed. Multiple areas were noted to be irritated and blanched due to impacted stones which had been treated. With the wire in place, it was backloaded onto the cystoscope, and a 6 Fr Double J stent was placed. It was confirmed with fluoroscopy. With the stent in place, the bladder was emptied. The scope was removed. The patient was cleaned, aroused from anesthesia, and transferred to the pacu in stable condition having tolerated the procedure well with no complications. I was present and participated in all aspects of the procedure. The patient will be monitored in the PACU until transferred. I attest to the content of the Intraoperative Record and any orders documented therein. Any exceptions are noted below.
--- NOTE | 2018-05-16 12:17 | Fluoroscopy Report ---
FL retrograde includes kub CLINICAL HISTORY: 52 years-old Male presenting with LASER LITHOTRIPSY AND STENT EXCHANGE. TECHNIQUE: 5 fluoroscopic image(s) recorded as part of an intraoperative procedure. COMPARISON: 04/13/[address] from 05/15/2018. FINDINGS/IMPRESSION: A guidewire was introduced into the upper pole calyces of the left kidney and the collecting system o pacified with contrast. Similarly, the right renal collecting system was opacified with contrast. Ure teral stents in place. Mild dilation of the renal collecting systems, right greater than left. Stents were then replaced. Please see surgical report for further details. Fluoroscopy dosage (mGy): 81.17. Fluoroscopy time: 124.7 seconds. Number or time of fluoroscopic spot images: 0. Electronically signed by: Blair Whitlock M.D. 05/16/2018 12:15 PM
--- NOTE | 2018-05-16 13:18 | Anesthesiology Progress Note ---
Date of Service May 16, 2018 Anesthesia Post Procedure Vital Signs Vital Signs: Temp Pulse Pulse Pulse Resp BP BP 05/16/18 12:55 36.9 C 86 12 162/104 H 05/16/18 12:45 80 12 152/89 H 05/16/18 12:35 79 15 155/100 H 05/16/18 12:25 83 15 170/98 H 05/16/18 12:15 36.3 C L 83 15 150/99 H 05/16/18 10:10 36.7 C 94 H 20 137/92 05/16/18 06:58 37.2 C 83 18 154/90 H 05/16/18 03:01 154/96 H 05/16/18 00:19 37.2 C 90 16 179/92 H 05/16/18 00:15 37.2 C 95 H 16 159/99 H 05/15/18 23:42 87 18 153/85 H 05/15/18 22:11 89 18 160/96 H 05/15/18 18:47 84 22 05/15/18 18:00 36.9 C 78 20 160/102 H Pulse Ox 05/16/18 12:55 96 05/16/18 12:45 96 05/16/18 12:35 98 05/16/18 12:25 100 05/16/18 12:15 100 05/16/18 10:10 97 05/16/18 06:58 97 05/16/18 03:01 05/16/18 00:19 98 05/16/18 00:15 98 05/15/18 23:42 99 05/15/18 22:11 98 05/15/18 18:47 100 05/15/18 18:00 99 Pain Intensity Bilateral Flank: Pain Intensity: 7 Head: Pain Intensity: 2 Notes Mental Status: alert / awake / arousable and participated in evaluation Patient Amnestic to Procedure: Yes Nausea / Vomiting: adequately controlled Pain: adequately controlled Airway Patency, RR, SpO2: stable & adequate BP & HR: stable & adequate Hydration State: stable & adequate Anesthetic Complications: no major complications apparent and Pt Satisfied with anesthetic care
--- NOTE | 2018-05-16 14:32 | Family Medicine Progress Note ---
Date of Service May 16, 2018 Assessment & Plan (1) Acute left flank pain: Mr. Carlin is a 52-year-old gentleman with a history of hypertension and kidney stones who presents to the emergency department due to sudden onset of left flank pain. ED course: 1 L normal saline bolus, 1 g IV acetaminophen, 4 mg IV Zofran x2, 1 g IV Rocephin, 10 mg oxycodone, 6 mg IV morphine sulfate x2, 1 mg IV Dilaudid -Admit to med/surg. -In ED, CT of the abdomen and pelvis shows left-sided hydroureteronephrosis with perinephric inflammatory stranding, and a 6 x 5 x 5 mm calculus of the distal left ureter. Also showed mild right-sided hydroureteronephrosis with a right- sided ureteral stent. -Urology consulted, and will peform surgical interventions today. -Pain control with 1 g IV Tylenol every 8 hours as needed and 1 mg IV Dilaudid every 4 hours as needed -1g IV Rocephin ordered q24h -urine culture pending -In ED creatinine 1.36, today 1.83 likely related to obstructive process from stone -Antiemetics4 mg Zofran every 6 hours IV as needed -Continue home stool softeners once patient is able to take p.o. again CODE STATUS: Full Disposition: Admit to med/surg DVT prophylaxis: SCDs. Chemoprophylaxis contraindicated given procedure. (2) Renal colic on left side: Today, Urology performed Cystoscopy, Left Semirigid Ureteronephroscopy with stone extraction and Laser Lithotripsy; Stent placement. Review of operative report - Had 6mm obstructing stone which was pulverized to dust and small fragments in OR. (3) Ureteral calculus, right: Today, Urology performed Cystoscopy, Right Flexible ureteroscopy with dilation, laser lithotripsy, and stent placement. Review of operative report - Severe stone fragments with obstruction and impaction were noted throughout the ureter. These were pulverized to dust and small fragments. - Once renal pelvis was able to be accessed it was noted that a decent amount of possible purulent debris was freed and drained. A sample was sent for analysis. - It was noted that there were a decent amount of large fragments in the pelvis and UPJ region. Due to concerns over possible purulent debris and one episode of mild hypotension in OR that resolved. The decision was that since the ureter was cleared, a stent was placed and would treat stones at another time. (4) Hypertension: -holding home losartan for procedure and elevated Creatinine today of 1.83. Supervising Physician Co-Signing Physician Notes I saw and examined the patient independently. I discussed the plan of care with the resident with the following summary/exceptions: 52yo M w/ hx of kidney stones. Has a stent on the right for prior stone, but then presented with left flank pain. Today, he is more comfortable with the IV pain medication. Plan for procedure today with Dr. Green. 1) Kidney stones - Plan for procedure today with Dr. Green to retrieve right stent and possibly place left stent. Continue abx given the elevated WBC. 2) RADHA - Baseline Cr is ~1.1. On 05/16, Cr is up to 1.9, likely due to hydronephrosis from stones. Will trend and continue IV fluids. 3) HTN - Most recent BP is 140/90. Monitor and hold losartan for his RADHA. Subjective Passed stone this morning with improvement in pain. Notes that had decreased fluid intake recently prior to this episode of stone as started new job and decreased fluid intake as he didn't want to limit needing a bathroom break to urinate. Recent A1C on 04/01/18 of 6.1. Recently, he has cut back eating breads. Will have urological procedure this morning. PM update: s/p urological intervention. He notes pain has significantly resolved but does note discomfort with urination. He denies nausea, vomiting, shortness of breath, fever, chills. Physical Exam Vital Signs (Past 24 Hours): Last Vital Signs Temp 37.2 C 05/16/18 14:23 Pulse 96 H 05/16/18 14:23 Resp 16 05/16/18 14:23 BP 165/102 H 05/16/18 14:23 Pulse Ox 94 05/16/18 14:23 Constitutional: WD/WN, vitals as above + obese Eyes: + anicteric sclerae and EOM intact bilaterally Neck: normal visual inspection and trachea midline Respiratory: normal respiratory effort, lungs clear to auscultation Cardiovascular: Rate/Rhythm: regular rate and regular rhythm Gastrointestinal (Abdomen): Inspection/Auscultation: normal bowel sounds Percussion/Palpation: abdomen soft; abdomen nontender Musculoskeletal: Head/Neck/Chest: normocephalic and head atraumatic Skin: no rashes, warm and dry Neurologic: moves all extremities and awake Psychiatric: A+Ox3, euthymic affect Results & Data Laboratory Results Laboratory Results - last 24 hr 05/15/18 05/15/18 05/15/18 18:25 18:25 18:35 WBC 10.48 RBC 5.02 Hgb 15.4 Hct 44.2 MCV 88.0 MCH 30.7 MCHC 34.8 RDW Std Deviation 41.6 RDW Coeff of Barbie 13.0 Plt Count 217 MPV 10.9 H Immature Gran % (Auto) 0.2 Neut % (Auto) 77.5 Lymph % (Auto) 13.1 [place] % (Auto) 8.0 Eos % (Auto) 0.9 Baso % (Auto) 0.3 Immature Gran # (Auto) 0.02 Neut # (Auto) 8.13 H Lymph # (Auto) 1.37 [place] # (Auto) 0.84 H Eos # (Auto) 0.09 Baso # (Auto) 0.03 Sodium 137 Potassium 3.8 Chloride 106 Carbon Dioxide 25 Anion Gap 6.0 BUN 15 Creatinine 1.36 Est Cr Clr Drug Dosing 89.2 Est GFR ( Amer) 68.8 Est GFR (Non-Af Amer) 59.4 BUN/Creatinine Ratio 10.7 Glucose 138 H Calcium 9.3 Total Bilirubin 0.7 AST 40 H ALT 45 Alkaline Phosphatase 69 Total Protein 7.9 Albumin 4.0 Globulin 3.9 Albumin/Globulin Ratio 1.0 Lipase 129 Urine Color Red Urine Appearance Turbid H Urine pH Ur Specific [place] 1.021 Urine Protein Urine Glucose (UA) Urine Ketones Urine Blood Urine Nitrite Urine Bilirubin Urine Urobilinogen Ur Leukocyte Esterase Urine RBC >30 H Urine WBC >30 H Ur Epithelial Cells >30 H Ur Renal Epithelial Cell 10-20 H Urine Bacteria 1+ H Hyaline Casts 10-30 H 05/16/18 05/16/18 09:33 09:33 WBC 13.08 H RBC 4.65 L Hgb 14.5 Hct 41.4 L MCV 89.0 MCH 31.2 MCHC 35.0 RDW Std Deviation 43.3 RDW Coeff of Barbie 13.3 Plt Count 200 MPV 10.5 H Immature Gran % (Auto) 0.2 Neut % (Auto) 74.1 Lymph % (Auto) 11.5 [place] % (Auto) 13.5 Eos % (Auto) 0.5 Baso % (Auto) 0.2 Immature Gran # (Auto) 0.03 H Neut # (Auto) 9.71 H Lymph # (Auto) 1.50 [place] # (Auto) 1.76 H Eos # (Auto) 0.06 Baso # (Auto) 0.02 Sodium 140 Potassium 3.9 Chloride 107 Carbon Dioxide 28 Anion Gap 5.0 BUN 15 Creatinine 1.87 H D Est Cr Clr Drug Dosing 65.8 Est GFR ( Amer) 46.8 Est GFR (Non-Af Amer) 40.4 BUN/Creatinine Ratio 8.1 L Glucose 107 H Calcium 8.7 Total Bilirubin AST ALT Alkaline Phosphatase Total Protein Albumin Globulin Albumin/Globulin Ratio Lipase Urine Color Urine Appearance Urine pH Ur Specific [place] Urine Protein Urine Glucose (UA) Urine Ketones Urine Blood Urine Nitrite Urine Bilirubin Urine Urobilinogen Ur Leukocyte Esterase Urine RBC Urine WBC Ur Epithelial Cells Ur Renal Epithelial Cell Urine Bacteria Hyaline Casts Diagnostic Findings 05/16/18 KUB 1. Unchanging right ureteral stent with several pelvic and a right ureteral calcifications. 2. Potential persistent distal left ureteral calculus. 05/16/18 Retrograde Pyelogram. Medications Administered Docusate Sodium (Colace) 100 mg PO DAILY [facility] Stop: 06/15/18 08:59 Last Admin: 05/16/18 08:35 Dose: Not Given Documented by: [id number] Hydromorphone HCl (Dilaudid) 1 mg IV Q4H PRN PRN Reason: Pain Stop: 05/30/18 00:29 Last Admin: 05/16/18 07:48 Dose: 1 mg Documented by: [id number] Admin: 05/16/18 00:56 Dose: 1 mg Documented by: [id number] Sodium Chloride (Nss 1000ml) 1,000 mls @ 125 mls/hr IV .Q8H [facility] Stop: 06/14/18 22:44 Last Infusion: 05/16/18 13:17 Dose: 125 mls/hr Documented by: [id number] Infusion: 05/16/18 09:57 Dose: 0 mls/hr Documented by: [id number] Admin: 05/16/18 05:32 Dose: 125 mls/hr Documented by: [id number] Infusion: 05/16/18 05:32 Dose: 125 mls/hr Documented by: [id number] Admin: 05/15/18 22:41 Dose: 125 mls/hr Documented by: [id number] Ceftriaxone Sodium 1,000 mg/ (Dextrose) 50 mls @ 100 mls/hr IV Q24H [facility] Stop: 05/26/18 22:59 Last Infusion: 05/16/18 13:17 Dose: 0 mls/hr Documented by: [id number] Admin: 05/16/18 11:02 Dose: 100 mls/hr Documented by: [id number] Lactated Ringer's (Lr) 1,000 mls @ 15 mls/hr IV .Q24H [facility] Stop: 05/17/18 11:14 Last Infusion: 05/16/18 11:09 Dose: 0 mls/hr Documented by: [id number] Admin: 05/16/18 11:09 Dose: 15 mls/hr Documented by: [id number] Losartan Potassium (Cozaar) [address] [facility] Stop: 06/15/18 08:59 Last Admin: 05/16/18 08:35 Dose: Not Given Documented by: [id number] Multivitamins (Multivitamin Tab) [address] [facility] Stop: 06/15/18 08:59 Last Admin: 05/16/18 08:35 Dose: Not Given Documented by: [id number] Vitamin D (Vitamin D3) 4,[address] [facility] Stop: 06/15/18 08:59 Last Admin: 05/16/18 08:35 Dose: Not Given Documented by: [id number]
[2018-05-16] MEDS: KETOROLAC TROMETHAMINE 10 MG TABLET PO SCH ×2 (16:30→20:58)
[2018-05-17] MEDS: KETOROLAC TROMETHAMINE 10 MG TABLET PO SCH ×2 (04:09→08:58)
[2018-05-17] MEDS: SODIUM CHLORIDE 0.9% 1000ML 1,000 ML IV SCH (05:38)
--- NOTE | 2018-05-17 07:20 | Anesthesiology Progress Note ---
Date of Service May 17, 2018 Anesthesia Post Procedure Vital Signs Vital Signs: Temp Pulse Pulse Resp BP Pulse Ox 05/17/18 03:42 36.4 C L 71 16 142/87 H 97 05/16/18 23:03 36.7 C 76 16 134/79 96 05/16/18 19:01 37.4 C 83 16 121/82 97 05/16/18 15:34 37.1 C 88 18 143/87 H 94 05/16/18 14:23 37.2 C 96 H 16 165/102 H 94 05/16/18 13:54 37 C 100 H 16 149/119 H 97 05/16/18 13:17 37 C 79 16 158/99 H 96 05/16/18 12:55 36.9 C 86 12 162/104 H 96 05/16/18 12:45 80 12 152/89 H 96 05/16/18 12:35 79 15 155/100 H 98 05/16/18 12:25 83 15 170/98 H 100 05/16/18 12:15 36.3 C L 83 15 150/99 H 100 05/16/18 10:10 36.7 C 94 H 20 137/92 97 Pain Intensity Bilateral Flank: Pain Intensity: 7 Head: Pain Intensity: 2 Notes Mental Status: alert / awake / arousable and participated in evaluation Patient Amnestic to Procedure: Yes Nausea / Vomiting: adequately controlled Pain: adequately controlled Airway Patency, RR, SpO2: stable & adequate BP & HR: stable & adequate Hydration State: stable & adequate Anesthetic Complications: no major complications apparent and Pt Satisfied with anesthetic care
[2018-05-17 07:26] LABS: Basophils # (auto) 0.01 K/uL (0-0.2); Basophils % (auto) 0.1 %; Eosinophils # (auto) 0.07 K/uL (0-0.5); Eosinophils % (auto) 0.8 %; Hematocrit (blood only) 37.4 % (42-52); Hemoglobin 12.5 g/dL (14.0-18.0); Immature Granulocytes # (auto) 0.01 K/uL (0.00-0.02); Immature Granulocytes % (auto) 0.1 %; Lymphocytes # (auto) 1.69 K/uL (1.2-3.4); Lymphocytes % (auto) 18.3 %; Mean Corpuscular Hgb Conc 33.4 g/dL (32-36); Mean Corpuscular Volume 90.6 fL (80-100); Mean Platelet Volume 10.5 fL (7.4-10.4); Monocytes # (auto) 0.93 K/uL (0.11-0.59); Neutrophils # (auto) 6.55 K/uL (1.4-6.5); Neutrophils % (auto) 70.7 %; Platelet Count 174 K/uL (130-400); RDW Coefficient of Variation 13.3 % (11.5-14.5); RDW Standard Deviation 43.8 fL (36.4-46.3); Red Blood Count 4.13 M/uL (4.7-6.1); White Blood Count 9.26 K/uL (4.8-10.8)
[2018-05-17 07:56] LABS: BUN Creatinine Ratio 14.1 (10-20); Creatinine Clr Calc Pharmacy 91.1 ml/min; Est GFR (African American) 69.5; Est GFR (Non-African American) 59.9; Potassium 4.4 mmol/L (3.5-5.1)
[2018-05-17 08:32] LABS: Estimated Average Glucose 131 mg/dl; Hemoglobin A1C 6.2 % (4.5-5.6)
[2018-05-17] MEDS: CHOLECALCIFEROL 1,000 UNITS TAB PO SCH (08:59)
[2018-05-17] MEDS: MULTIVITAMIN TAB PO SCH (08:59)
[2018-05-17] MEDS: DOCUSATE SODIUM 100 MG CAP PO SCH (08:59)
--- NOTE | 2018-05-17 09:51 | Urology Progress Note ---
Date of Service May 17, 2018 Assessment & Plan (1) Ureteral calculus, right: 52yo M POD #1 s/p bilateral URS, LL and stent placement. Hemodynamically stable, tolerating PO and voiding spontaneously. Successfully able to remove distal L ureteral stone. However, on the right side, pt had multiple stones (almost steinstrasse) + large amount of purulent debri in renal pelvis and episode of hypotension intraopertively, therefore it was necessary to abort procedure and place R ureteral stent as well. Per Dr. Green, patient will require secondary Right URS procedure in 2-3 weeks to better evaluate and hopefully treat remaining renal stones. Renal pelvis culture pending Discussed results and plan moving forward with patient, he verbalizes understanding. Will arrange for close outpatient follow-up at our [address] [place] [address] office. Presently patient is stable, and okay to d/c home from standpoint with ciprofloxacin BID x2 weeks (will convert once sensitivities available if indicated), tamsulosin, and pain control. Subjective 52yo M s/p bilateral URS, LL and stent placement. Pt doing well this AM. Hemodynamically stable, Cr improved back to baseline. Denies n/v/f/c. Reports he passed yet another stone. Tolerating bilateral stents well, denies significant bother or pain. Able to sleep comfortably through the night. Review of Systems All systems reviewed & are unremarkable except as noted in HPI & below Physical Exam Vital Signs (Past 24 Hours): Last Vital Signs Temp 37 C 05/17/18 07:45 Pulse 65 05/17/18 07:45 Resp 20 05/17/18 07:45 BP 147/86 H 05/17/18 07:45 Pulse Ox 98 05/17/18 07:45 Physical Exam: A&Ox3 RRR abd soft, nontender no JVD, no edema Results & Data Laboratory Results Laboratory Results - last 48 hr 05/15/18 05/15/18 05/15/18 18:25 18:25 18:35 WBC 10.48 RBC 5.02 Hgb 15.4 Hct 44.2 MCV 88.0 MCH 30.7 MCHC 34.8 RDW Std Deviation 41.6 RDW Coeff of Barbie 13.0 Plt Count 217 MPV 10.9 H Immature Gran % (Auto) 0.2 Neut % (Auto) 77.5 Lymph % (Auto) 13.1 [place] % (Auto) 8.0 Eos % (Auto) 0.9 Baso % (Auto) 0.3 Immature Gran # (Auto) 0.02 Neut # (Auto) 8.13 H Lymph # (Auto) 1.37 [place] # (Auto) 0.84 H Eos # (Auto) 0.09 Baso # (Auto) 0.03 Sodium 137 Potassium 3.8 Chloride 106 Carbon Dioxide 25 Anion Gap 6.0 BUN 15 Creatinine 1.36 Est Cr Clr Drug Dosing 89.2 Est GFR ( Amer) 68.8 Est GFR (Non-Af Amer) 59.4 BUN/Creatinine Ratio 10.7 Glucose 138 H Estimat Average Glucose Hemoglobin A1c Calcium 9.3 Total Bilirubin 0.7 AST 40 H ALT 45 Alkaline Phosphatase 69 Total Protein 7.9 Albumin 4.0 Globulin 3.9 Albumin/Globulin Ratio 1.0 Lipase 129 Urine Color Red Urine Appearance Turbid H Urine pH Ur Specific [place] 1.021 Urine Protein Urine Glucose (UA) Urine Ketones Urine Blood Urine Nitrite Urine Bilirubin Urine Urobilinogen Ur Leukocyte Esterase Urine RBC >30 H Urine WBC >30 H Ur Epithelial Cells >30 H Ur Renal Epithelial Cell 10-20 H Urine Bacteria 1+ H Hyaline Casts 10-30 H 05/16/18 05/16/18 05/17/18 09:33 09:33 07:03 WBC 13.08 H 9.26 RBC 4.65 L 4.13 L Hgb 14.5 12.5 L Hct 41.4 L 37.4 L MCV 89.0 90.6 MCH 31.2 30.3 MCHC 35.0 33.4 RDW Std Deviation 43.3 43.8 RDW Coeff of Barbie 13.3 13.3 Plt Count 200 174 MPV 10.5 H 10.5 H Immature Gran % (Auto) 0.2 0.1 Neut % (Auto) 74.1 70.7 Lymph % (Auto) 11.5 18.3 [place] % (Auto) 13.5 10.0 Eos % (Auto) 0.5 0.8 Baso % (Auto) 0.2 0.1 Immature Gran # (Auto) 0.03 H 0.01 Neut # (Auto) 9.71 H 6.55 H Lymph # (Auto) 1.50 1.69 [place] # (Auto) 1.76 H 0.93 H Eos # (Auto) 0.06 0.07 Baso # (Auto) 0.02 0.01 Sodium 140 Potassium 3.9 Chloride 107 Carbon Dioxide 28 Anion Gap 5.0 BUN 15 Creatinine 1.87 H D Est Cr Clr Drug Dosing 65.8 Est GFR ( Amer) 46.8 Est GFR (Non-Af Amer) 40.4 BUN/Creatinine Ratio 8.1 L Glucose 107 H Estimat Average Glucose Hemoglobin A1c Calcium 8.7 Total Bilirubin AST ALT Alkaline Phosphatase Total Protein Albumin Globulin Albumin/Globulin Ratio Lipase Urine Color Urine Appearance Urine pH Ur Specific [place] Urine Protein Urine Glucose (UA) Urine Ketones Urine Blood Urine Nitrite Urine Bilirubin Urine Urobilinogen Ur Leukocyte Esterase Urine RBC Urine WBC Ur Epithelial Cells Ur Renal Epithelial Cell Urine Bacteria Hyaline Casts 05/17/18 05/17/18 07:03 07:03 WBC RBC Hgb Hct MCV MCH MCHC RDW Std Deviation RDW Coeff of [place]bie Plt Count MPV Immature Gran % (Auto) Neut % (Auto) Lymph % (Auto) [place] % (Auto) Eos % (Auto) Baso % (Auto) Immature Gran # (Auto) Neut # (Auto) Lymph # (Auto) [place] # (Auto) Eos # (Auto) Baso # (Auto) Sodium 140 Potassium 4.4 Chloride 109 H Carbon Dioxide 27 Anion Gap 4.0 BUN 19 H Creatinine 1.35 D Est Cr Clr Drug Dosing 91.1 Est GFR ( Amer) 69.5 Est GFR (Non-Af Amer) 59.9 BUN/Creatinine Ratio 14.1 Glucose 97 Estimat Average Glucose 131 Hemoglobin A1c 6.2 H Calcium 8.0 L Total Bilirubin AST ALT Alkaline Phosphatase Total Protein Albumin Globulin Albumin/Globulin Ratio Lipase Urine Color Urine Appearance Urine pH Ur Specific [place] Urine Protein Urine Glucose (UA) Urine Ketones Urine Blood Urine Nitrite Urine Bilirubin Urine Urobilinogen Ur Leukocyte Esterase Urine RBC Urine WBC Ur Epithelial Cells Ur Renal Epithelial Cell Urine Bacteria Hyaline Casts
[2018-05-17] MEDS: cefTRIAXone SODIUM 1,000 MG in DEXTROSE 5% 50 ML IV SCH (10:27)
--- NOTE | 2018-05-17 11:53 | Discharge Summary ---
Date of Service May 17, 2018 Admission HPI Per Admitting Provider Mr. Carlin is a 52-year-old gentleman with a history of hypertension and kidney stones who presents to the emergency department due to sudden onset of left flank pain. He had a stent placed for right-sided kidney stones 1 month ago, and is due to have surgery to have the stent removed tomorrow. He states that on his way home from work, he had a sudden onset of left-sided sharp flank pain that "hit him like a rock." He notes that the pain was unbearable, constant, and was associated with nausea. He denies any vomiting, fever, chills. He states that he has not had any right-sided flank pain since the stent was placed. He does endorse having hematuria, off and on since his stent was placed 1 month ago. He denies any clots in his urine. He also endorses mild dysuria, and poor stream since his stent was placed. He states that prior to these two episodes of kidney stones, his last kidney stone was approximately 8 years ago. He states that he had a stent placed for that, and that was removed 10 days later. He has not had problems since then. Of note, he has 2 brothers who also have a history of kidney stones. Mr. Carlin is a non-smoker, does not frequently consume alcohol [except for beer last night - his first in 6 years], does not use recreational drugs. Admission Exam Per Admitting Provider Constitutional: WD/WN, vitals as above + morbidly obese and cooperative Laying flat on his back, looks uncomfortable ENMT: external ear and nose normal, oropharynx normal Respiratory: normal respiratory effort, lungs clear to auscultation Cardiovascular: RRR, no murmur, no edema Gastrointestinal (Abdomen): Percussion/Palpation: abdomen soft; abdomen nontender, no guarding and abdomen not rigid Left-sided flank tenderness. No right-sided flank tenderness. Skin: no rashes, warm and dry Psychiatric: A+Ox3, euthymic affect Principal Diagnosis Kidney stones Discharge Exam Constitutional WD/WN, vitals as above + obese Eyes + anicteric sclerae and EOM intact bilaterally Neck normal visual inspection and trachea midline Respiratory normal respiratory effort, lungs clear to auscultation Cardiovascular Rate/Rhythm: regular rate and regular rhythm Gastrointestinal (Abdomen) Inspection/Auscultation: normal bowel sounds Percussion/Palpation: abdomen soft; abdomen nontender Musculoskeletal Head/Neck/Chest: normocephalic and head atraumatic Skin no rashes, warm and dry Neurologic moves all extremities and awake Psychiatric A+Ox3, euthymic affect Discharge Data Allergies Allergy/AdvReac Type Severity Reaction Status Date / Time No Known Allergies Allergy Verified 05/15/18 18:32 Consultations 05/15/18 22:42 ED Decision to Admit Stat 05/16/18 00:30 Consult Urology Routine Procedures Performed Operation Date: 05/16/18 10:45 Actual Procedures p Cystoscopy, Bilateral Ureteronephroscopy, Bilateral Laser Lithotripsy - Alvarado Green II, DO s Bilateral Stent, Right Stone Extraction(Bilateral) - Alvarado Green II, DO Ordered Studies 05/15/18 18:13 US renal/blad retro comp Stat 05/15/18 21:17 CT abd pelvis wo con Stat Hospital Course (1) Acute left flank pain: Mr. Carlin is a 52-year-old gentleman with a history of hypertension and kidney stones who presents to the emergency department due to sudden onset of left flank pain. ED course: 1 L normal saline bolus, 1 g IV acetaminophen, 4 mg IV Zofran x2, 1 g IV Rocephin, 10 mg oxycodone, 6 mg IV morphine sulfate x2, 1 mg IV Dilaudid -Admitted to med/surg. -In ED, CT of the abdomen and pelvis shows left-sided hydroureteronephrosis with perinephric inflammatory stranding, and a 6 x 5 x 5 mm calculus of the distal left ureter. Also showed mild right-sided hydroureteronephrosis with a right- sided ureteral stent. -Urology consulted, and will peformed surgical interventions on 05/16/18 -Hospital pain control provided: Pain control with 1 g IV Tylenol every 8 hours as needed and 1 mg IV Dilaudid every 4 hours as needed -1g IV Rocephin ordered q24h, received two days of Rocephin. -urine culture pending -In ED creatinine 1.36, morning prior to surgical intervention 1.83 likely related to obstructive process from stone Day of discharge Creatinine improved to 1.35 -Antiemetics4 mg Zofran every 6 hours IV as needed -Continue home stool softeners once patient is able to take p.o. again CODE STATUS: Full Disposition: Admit to med/surg DVT prophylaxis: SCDs. Chemoprophylaxis contraindicated given procedure. (2) Renal colic on left side: Day prior to discharge, Urology performed Cystoscopy, Left Semirigid Ure teronephroscopy with stone extraction and Laser Lithotripsy; Stent placement. Review of operative report - Had 6mm obstructing stone which was pulverized to dust and small fragments in OR. (3) Ureteral calculus, right: Day prior to discharge, Urology performed Cystoscopy, Right Flexible ureteroscopy with dilation, laser lithotripsy, and stent placement. Review of operative report - Severe stone fragments with obstruction and impaction were noted throughout the ureter. These were pulverized to dust and small fragments. - Once renal pelvis was able to be accessed it was noted that a decent amount of possible purulent debris was freed and drained. A sample was sent for analysis. - It was noted that there were a decent amount of large fragments in the pelvis and UPJ region. Due to concerns over possible purulent debris and one episode of mild hypotension in OR that resolved. The decision was that since the ureter was cleared, a stent was placed and would treat stones at another time. Will go home on Ciprofloxacin 500mg BID for 2 weeks. Started patient on HCTZ 50mg PO daily for help with calciuria. HCTZ benefit of renal reabsorption of Calcium. Will need blood pressure monitoring as outpatient. Discussed to stay well hydrated with plenty of fluids to help prevent further stone formation. (4) Hypertension: -Over course of stay held home losartan for procedure and elevated Creatinine of 1.83. Okay to resume as outpatient Total Time Total Time Spent Total Time Spent (In Minutes): 35 Total Time Includes: Examination of the Patient, Discharge Planning, Medication Reconciliation and Communication With Other Providers Discharge Plan Discharge Items Patient Disposition: Home - Self-Care Reason For Visit: KIDNEY STONES Discharge Diagnosis: Kidney Stones Condition: Good Discharge Goals: Decrease discomfort, Improve disease control and Therapeutic intervention Activity: Per 'Additional Instructions' section Non-emergency contact: Primary Care Provider and Urologist Call non-emergency contact if: you have any medication questions, your symptoms worsen, your pain is concerning for you and you have a fever Follow-up/Referrals: Christel Ying DO [Primary Care Provider] - 05/23/18 9:20 am (follow up primary care physician appointment) Diet: Carb Consistent or DM2 Addtl Provider Instructions: Please take all medications as prescribed and keep all follow-ups as scheduled. Please call our office at [phone] with any questions, concerns or need to reschedule appointments for any reason. We are happy to assist you. While you have a ureteral stent in place: Some discomfort is normal. Certain movements may trigger pain or a feeling that you need to urinate. You may also feel mild soreness or pressure before or during urination. These symptoms should go away a few days after the stent is removed. Your urine may be slightly pink or red. This is due to bleeding caused by minor irritation from the stent. This may happen on and off while you have the stent, it is not harmful and is to be expected. Medication to help minimize discomfort or bladder spasms, or to prevent infection may be prescribed. Take this as directed. Drink plenty of fluids to help flush out your urinary tract. If you go home with a catheter, wash with soapy water and a fresh washcloth twice daily. We recommend mild bar soap such as Dial or Dove. How long will you need a stent? An appointment should already be made for you for stent removal, unless directed otherwise. The stent is often taken out after the blockage in the ureter is treated or the ureter has healed. This may take 1-2 weeks, or longer. If a stent is needed for a long time, it may need to be changed every few months. When to call [facility] at [phone]: Your urine contains heavy blood clots You are constantly leaking urine Fever of 101F or higher, chills, nausea, or vomiting Your pain is not relieved with medicine The end of the stent comes out of your urethra Prescriptions were sent to your pharmacy electronically for the following medications: Antibiotic - Ciprofloxacin 500mg, take one pill, two times per day (AM then PM, or every 12 hours) for 2 weeks. There is a culture pending to make sure antibiotic coverage is appropriate, you will be contacted if a different antibiotic is needed. Tamsulosin 0.4mg, one pill at night. Hydrochlorothiazide (HCTZ) 50mg, take one pill daily. This medication helps to decrease calcium in your urine which can lead to stone formation. Please stay well hydrated, drink plenty of clear fluids, this will help to prevent kidney stones. Please follow up with your Primary Care Provider for hospital follow up and blood pressure check as HCTZ is also used as a blood pressure medication, and follow up with Urology for further intervention to treat your remaining stones. You can take Tylenol 650mg every 4 hours as needed for discomfort. Or, you can also take Ibuprofen 600mg (usually come in 200mg pills) every 6 horus for pain/discomfort as needed. If you are experiencing worsening pain, fever (100.5 F or greater), chills, concerning symptoms, please return here to Emergency Department for further evaluation. Prescriptions: New ciprofloxacin HCl [Cipro] 500 mg tablet 500 mg PO BID 14 Days Qty: 28 RF: 0 hydrochlorothiazide 50 mg tablet 50 mg PO DAILY Qty: 30 RF: 0 Continued losartan 50 mg Tablet 50 mg PO QAM RF: 0 cholecalciferol (vitamin D3) [Vitamin D3] 2,000 unit Capsule 4,000 unit PO QAM RF: 0 multivitamin Tablet 1 tab PO QAM RF: 0 docusate sodium [Stool Softener] 100 mg Capsule 100 mg PO DAILY RF: 0 oxycodone 5 mg Tablet 5 mg PO Q8 PRN (Reason: Pain) RF: 0 tamsulosin 0.4 mg capsule 0.4 mg PO QPM Qty: 30 RF: 0 Stand-Alone Forms: [facility] [employer], Work/School Release (Inpt) Krames/Other Patient Handouts: Kidney Stones Risk, Kidney Stones, Kidney Stones Prevent Discharge Orders: Discharge Order (Routine); Ordered 05/17/18 Ordered By: Abdias Coffey Admission Data Admit Date/Time: 05/15/18 23:27 Attending Provider: Flaco Rogers Admit Provider: Milli Cantu Primary Care Provider: Christel Ying Other Providers: Flaco Rogers ; Jaylon Garcia ; Maynor Antony ; Sonu Jeffery ; Ralph Rogers I. ; Fernando Torres ; Sameera Dominique ; Alvarado Green II ; Samantha Huddleston Service: Surgical Services Other Interventions: Discharge Summary Assessment (RN) Last Done: 05/17/18 12:04 Pending Studies at Discharge: Yes Studies:: cultures pending DC Date/Time DO NOT enter until pt leaves facility: 05/17/18 13:36 Supervising Physician Co-Signing Physician Notes I saw and examined the patient independently. I discussed the plan of care with the resident with the following summary/exceptions: 52yo M w/ hx of kidney stones. Has a stent on the right for prior stone, but then presented with left flank pain. Today, he is comfortable after the procedures. 1) Kidney stones - Stents and stone pulvarization with Dr. Green on 05/16 with resolution of pain. Discharged on Cipro, tamsulosin with close urology follow up. Started on HCTZ to help prevent further calcium stones (which was the 05/10 stone). 2) RADHA - Baseline Cr is ~1.1. On 05/16, Cr was up to 1.9, likely due to hydronephrosis from stones. Improved on 05/17, due to resolution of stones/stent placement. 3) HTN - BPs were mildly elevated. Held losartan for his RADHA and stopped on discharge in favor of HCTZ to prevent further stone formation. 50mg used as this was used in clinical trials for stone reduction.
--- NOTE | 2018-05-21 06:37 | Coding Query ---
CODING QUERY To promote full compliance with coding requirements relating to patient care, provider participation is requested in all cases of dredge engineer uncertainty. Please assist us with the question(s) below: Coding Question: Unfortunately, "RADHA" is not a valid abbreviation as it can mean insufficiency or injury, which code out to two different things. Please clarify the meaning of RADHA in the progress notes and DC summary. Thank you for your help! ( ) Acute Kidney Injury (acute kidney failure) ( ) Acute Kidney Insufficiency ( x ) Other (Specify):___Acute Kidney Injury from post-renal obstruction by kidney stone. This is no acute kidney failure. Principal Diagnosis: "that condition established after study, to be chiefly responsible for occasioning the admission of the patient to the hospital for care." Co-Existing Principal Diagnosis: "when two or more diagnoses equally meet the criteria for principal diagnosis as determined by the circumstances of admission, diagnostic work up, and/or therapy provided, and the Alphabetic Index, Tabular List, or another coding guideline does not provide sequencing direction, any one of the diagnoses may be sequenced first." "When the physician has documented what appears to be a current diagnosis in the body of the record, but has not included the diagnosis in the final diagnostic statement, the physician should be asked whether the diagnosis should be added." ([facility] 2 QTR90. p3-4) SVETLANA
[2018-05-22 07:54] LABS: Component 2 DNR; Source Ureter
[2018-05-23 08:47] LABS: Component 2 DNR; Source Left Ureter
== END 2018-05-17 13:36 | disposition home or self-care (01) | DRG 660 ==
LOC: ED 17:58 → 3W 23:27 → SUATTDRO 23:27 → 3W 05-16 00:07

== ENCOUNTER 2019-10-06 18:47 | Observation (INO) ==
[2019-10-06] MEDS ORDERED: SODIUM CHLORIDE 0.9% 1000ML 1,000 ML IV ONE (19:33)
[2019-10-06 20:24] LABS: Appearance Urine Turbid (Clear); Blood Urine Negative (Negative); Color Urine Dark Yellow; Epithelial Cell Urine Auto >30 /lpf (0-5); Glucose Urine UA Negative (Negative); Ketones Urine 1+ (Negative); Leukocyte Esterase Urine Negative (Negative); Nitrite Urine Negative (Negative); Protein Urine 1+ (Negative); Specific Gravity Urine 1.026 (1.000-1.030); Urobilinogen Urine Negative (Negative)
[2019-10-06 20:25] LABS: Basophils # (auto) 0.01 K/uL (0-0.2); Basophils % (auto) 0.1 %; Hematocrit (blood only) 42.8 % (42-52); Hemoglobin 15.5 g/dL (14.0-18.0); Immature Granulocytes # (auto) 0.04 K/uL (0.00-0.02); Immature Granulocytes % (auto) 0.3 %; Lymphocytes # (auto) 1.83 K/uL (1.2-3.4); Lymphocytes % (auto) 12.6 %; Mean Corpuscular Hemoglobin 31.2 pg (25-34); Mean Corpuscular Hgb Conc 36.2 g/dL (32-36); Mean Corpuscular Volume 86.1 fL (80-100); Mean Platelet Volume 11.4 fL (7.4-10.4); Monocytes # (auto) 1.46 K/uL (0.11-0.59); Neutrophils # (auto) 11.19 K/uL (1.4-6.5); Platelet Count 211 K/uL (130-400); RDW Coefficient of Variation 13.3 % (11.5-14.5); Red Blood Count 4.97 M/uL (4.7-6.1); White Blood Count 14.53 K/uL (4.8-10.8)
--- NOTE | 2019-10-06 20:30 | CT Scan Report ---
CT SCAN OF THE ABDOMEN AND PELVIS WITHOUT CONTRAST CLINICAL HISTORY: difficulty urinating abd pain hx kidney stones COMPARISON STUDY: 05/20/2018 TECHNIQUE: CT scan of the abdomen and pelvis was performed from the lung bases to the proximal femurs . Images are reviewed in the axial, sagittal, and coronal planes. IV contrast was not administered fo r this examination. A dose lowering technique was utilized adhering to the principles of ALARA. CT DOSE: 2179.02 mGy.cm FINDINGS: Lower chest: There is a 5 mm solid nodule within the lingula. This remains similar to the preceding s tudy. Minimal right paravertebral lower lobe groundglass opacities are likely atelectatic. Liver: There is hepatic steatosis. No focal masses are visualized in this noncontrast study Gallbladder: Unremarkable. Spleen: Normal in size and attenuation. Pancreas: Unremarkable. Adrenal glands: Unremarkable. Kidneys: There is a 35 mm lower pole right renal cyst. There is bilateral nephrolithiasis with a grea ter stone burden on the right. There is no hydronephrosis. There is right renal cortical scarring. No ureteral calculi are visualized. Bowel: There are no transition zones indicate bowel obstruction. There is colonic diverticulosis. The re is no evidence of acute diverticulitis. The appendix appears normal. Peritoneum: There is no intraperitoneal free air or abdominal ascites. There are small fat-containing inguinal hernias Vasculature: The abdominal aorta is normal in course and caliber. Adenopathy: None. Pelvic viscera: There is an indwelling Gutierrez catheter. Air within the bladder is felt to be iatrogeni c. Skeletal structures: There is bilateral L5 spondylolysis. There is a grade 1 spondylolisthesis of L5 on S1. There are multilevel degenerative changes present within the cervical spine. IMPRESSION: 1. No evidence of bowel obstruction. No evidence of free air 2. Normal appendix. No evidence of acute diverticulitis 3. Bilateral nephrolithiasis. No hydronephrosis. No ureteral or bladder calculi identified ACT 112: Negative or not required by law. Electronically signed by: Nicolás Latham M.D. 10/06/2019 8:29 PM
[2019-10-06 20:36] LABS: BUN Creatinine Ratio 8.7 (10-20); Bilirubin Direct 0.1 mg/dl (0-0.2); Calcium 9.9 mg/dl (8.5-10.1); Creatinine Clr Calc Pharmacy 38.5 ml/min; Est GFR (African American) 23.8; Est GFR (Non-African American) 20.5; Potassium 3.7 mmol/L (3.5-5.1)
[2019-10-06 20:38] LABS: Bilirubin,Total 0.7 mg/dl (0.2-1)
[2019-10-06 20:42] LABS: Bilirubin Urine Negative (Negative); Ictotest Urine Negative (Negative)
[2019-10-06 20:44] LABS: RBC Urine Automated 0-4 /hpf (0-4)
[2019-10-06 20:45] LABS: Bacteria Urine Automated 1+ (Negative); Cast Urine Automated 0 /lpf (0-5)
[2019-10-06 21:27] LABS: Creatine Kinase 624 U/L (39-308)
[2019-10-06] MEDS ORDERED: SODIUM CHLORIDE 0.9% 1000ML 1,000 ML IV SCH (22:15)
[2019-10-06] MEDS ORDERED: ONDANSETRON INJ 2 MG/ML 2 ML VIAL IV PRN (23:06)
[2019-10-06 23:30] LABS: Magnesium 2.1 mg/dl (1.8-2.4); Phosphorus 3.9 mg/dl (2.5-4.9); Troponin I < 0.015 ng/ml (0-0.045)
[2019-10-06 23:56] LABS: Sodium Random Urine 89 mmol/L; Urea Nitrogen, Urine Random 496 mg/dl
[2019-10-07] MEDS: SODIUM CHLORIDE 0.9% 1000ML 1,000 ML IV SCH ×2 (00:49→05:37)
--- NOTE | 2019-10-07 01:10 | Emergency Department Note ---
History of Present Illness General Chief complaint: Unable to Void Stated complaint: UNABLE TO URINATE Time Seen by Provider: 10/06/19 19:27 History of Present Illness Provider complaint: Inability urinate Onset (ago): hour(s) (14) Location: abdomen Radiation: non-radiation Severity: moderate Maximum Pain Intensity: 6 Current Pain Intensity: 6 Quality: + other (Pressure) 53-year-old male presents emergency department for inability urinate. Patient reports that he has not been able to urinate since 530 this morning when he woke up. He reports increasing abdominal pain. Pain is located primarily in the suprapubic region. Patient denies any fevers. No nausea or vomiting. No chest pain or difficulty breathing. No fevers. No loss of taste or smell. 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 Patient states he has a history of kidney stones that have needed to removed surgically in the past. Home Medications Home Medications Medication Instructions Recorded Confirmed Type multivitamin 1 tab PO QAM 04/16/18 10/06/19 History betamethasone dipropionate 0.05 % 1 appln TOP DAILY PRN #45 gm 09/20/18 10/06/19 Rx topical cream cholecalciferol (vitamin D3) 50 4,000 unit PO QAM #60 cap 10/01/18 10/06/19 Rx mcg (2,000 unit) capsule hydrochlorothiazide 50 mg tablet 50 mg PO DAILY #90 tab 01/20/19 10/06/19 Rx losartan 100 mg tablet 100 mg PO DAILY #90 tab 06/16/19 10/06/19 Rx Allergies Allergy/AdvReac Type Severity Reaction Status Date / Time lisinopril AdvReac Cough Verified 10/06/19 22:32 Past Med/Surg History Medical History Acute left flank pain (Resolved) Eczema Encounter for pre-operative examination (Resolved) HTN (hypertension) Hydronephrosis (Resolved) Impaired fasting glucose Morbid obesity Nephrolithiasis Osteoarthritis Renal colic on left side (Resolved) Ureteral calculus, right (Resolved) Vitamin D deficiency Surgical History History of cystoscopy Cystoscopy/ureteroscopy/laser lithotripsy/stent= 05/16/18= LMA#5 at [facility] History of lithotripsy X2; RIGHT ESWL= 04/26/18= LMA#5 AT [facility] – [place] S/P ureteral stent placement (05/16/18) Cystoscopy, stone extraction, laser lithotripsy, stent on the left side Right laser lithotripsy and stent Family History Father Heart disease Myocardial infarction, Onset Age: 76 Kidney stones Mother Hypertension Other Family history non-contributory Social History Smoking Status: Never smoker Second Hand Exposure: No; Do You Dip or Chew Tobacco: No; Hx Alcohol Use: No Hx Substance Use: No Preferred Language: Citizen Of [place] Communication Ability: Effective Visual Impairment: No Limitations Hearing Ability: Normal Shearer Helper Required: No Beliefs That Will Affect Care: None Current Living Situation: Spouse Other Information That Helps Us Care for You: No Feels Safe at Home: Yes Safety Concerns: Feels Safe At This Time Review of Systems A total of 10 systems reviewed and were otherwise negative Physical Exam Vital Signs Vital Signs - 24 hr 10/06/19 18:49 10/06/19 20:29 Temperature 36.4 C L Temperature Source Oral Pulse Rate 98 H Pulse Rate [Apical] 85 Respiratory Rate 20 16 Respiratory Depth Normal Blood Pressure 143/86 H Blood Pressure [Right Arm] 124/82 Blood Pressure Mean 105 Blood Pressure Mean [Right Arm] 96 Pulse Oximetry 97 94 Oxygen Delivery Method Room Air Room Air Sepsis Recent Fever Within 48 Hours No Sepsis New/Unexplained Change in Mental Status No Sepsis Action Taken by Nursing No Action Required Physical Exam GENERAL: He is oriented to person, place, and time. He appears well-developed and well-nourished. He does not appear distressed. HENT: Exam performed. - Head: Normocephalic and atraumatic. - Right Ear: External ear normal. No mastoid tenderness. - Left Ear: External ear normal. No mastoid tenderness. - Mouth/Throat: The oropharynx is clear and moist. No trismus in the jaw. No dental abscesses or uvula swelling. No oropharyngeal exudate or tonsillar abscesses. EYES: Conjunctivae and EOM are normal. Pupils are equal, round, and reactive to light. Right eye exhibits no discharge. Left eye exhibits no discharge. No scleral icterus. NECK: Normal range of motion. Neck supple. No JVD present. No spinous process tenderness present. No carotid bruit present. No rigidity. No tracheal deviation and normal range of motion present. No Brudzinski's sign and no Kernig's sign noted. CV: Normal rate, regular rhythm, normal heart sounds and intact distal pulses. There is no peripheral edema. Palpable radial pulses bue. PULM/CHEST: Effort normal and breath sounds normal. No respiratory distress. No stridor. He has no wheezes. He has no rales. - Chest Wall: He exhibits no tenderness. ABD: The abdomen is soft and obese. Bowel sounds are normal. He has no distension. No mass is present. There is tenderness to palpation of the suprapubic area. There is no rebound, no guarding, no Sanchez's sign and no tenderness at McBurney's point. Rovsig negative. MUSC/SKEL: Normal range of motion. There is no peripheral edema, tenderness or deformity. LYMPH: No cervical adenopathy. NEURO: He is alert and oriented to person, place, and time. He has normal strength. No cranial nerve deficit or sensory deficit. Coordination and gait normal. GCS eye subscore is 4. GCS verbal subscore is 5. GCS motor subscore is 6. Cerebellar tests wnl. SKIN: Skin is warm and dry. He is not diaphoretic. PSYCH: He has a normal mood and affect. Behavior is normal. Judgment and thought content normal. Course Course 1926: The patient was evaluated in room D7. A complete history and physical exam was performed. 2123: Vital signs stable. Labs show leukocytosis of 14.53. Creatinine is elevated 3.26. Previous creatinines have been within normal limits. CT does not show any obstructing urinary stone. CK is mildly elevated. Patient will continue to get IV fluids and be admitted to the hospitalist team discussed with [facility] hospitalist Dr. Pepper who accepted the patient. Administered Medications Sodium Chloride (Nss 1000ml) 1,000 mls @ 125 mls/hr IV .Q8H AIDAN Stop: 10/07/19 15:05 Last Admin: 10/07/19 00:49 Dose: Not Given Documented by: [id number] Discontinued Medications Sodium Chloride (Nss 1000ml) 1,000 mls @ 999 mls/hr IV .Q1H1M ONE Stop: 10/06/19 20:33 Last Infusion: 10/06/19 21:14 Dose: 0 mls/hr Documented by: [id number] Admin: 10/06/19 20:08 Dose: 999 mls/hr Documented by: [id number] Sodium Chloride (Nss 1000ml) 1,000 mls @ 125 mls/hr IV .Q8H AIDAN Stop: 11/05/19 22:14 Last Admin: 10/06/19 22:27 Dose: 125 mls/hr Documented by: [id number] Medical Decision Making Laboratory Data Result diagrams: 10/06/19 20:07 10/06/19 20:07 Lab Results 10/06/19 10/06/19 10/06/19 Range/Units 20:07 20:07 20:07 WBC 14.53 H (4.8-10.8) K/uL RBC 4.97 (4.7-6.1) M/uL Hgb 15.5 (14.0-18.0) g/dL Hct 42.8 (42-52) % MCV 86.1 (80-100) fL MCH 31.2 (25-34) pg MCHC 36.2 H (32-36) g/dL RDW Std Deviation 42.0 (36.4-46.3) fL RDW Coeff of Barbie 13.3 (11.5-14.5) % Plt Count 211 (130-400) K/uL MPV 11.4 H (7.4-10.4) fL Immature Gran % (Auto) 0.3 % Neut % (Auto) 77.0 % Lymph % (Auto) 12.6 % [place] % (Auto) 10.0 % Eos % (Auto) 0.0 % Baso % (Auto) 0.1 % Neut # (Auto) 11.19 H (1.4-6.5) K/uL Lymph # (Auto) 1.83 (1.2-3.4) K/uL [place] # (Auto) 1.46 H (0.11-0.59) K/uL Eos # (Auto) 0.00 (0-0.5) K/uL Baso # (Auto) 0.01 (0-0.2) K/uL Immature Gran # (Auto) 0.04 H (0.00-0.02) K/uL Sodium 139 (136-145) mmol/L Potassium 3.7 (3.5-5.1) mmol/L Chloride 105 (98-107) mmol/L Carbon Dioxide 24 (21-32) mmol/L Anion Gap 10.0 (3-11) BUN 28 H (7-18) mg/dl Creatinine 3.26 H (0.6-1.4) mg/dl Est Cr Clr Drug Dosing 38.5 ml/min Est GFR ( Amer) 23.8 Est GFR (Non-Af Amer) 20.5 BUN/Creatinine Ratio 8.7 L (10-20) Glucose 115 H (70-99) mg/dl Calcium 9.9 (8.5-10.1) mg/dl Phosphorus (2.5-4.9) mg/dl Magnesium (1.8-2.4) mg/dl Total Bilirubin 0.7 (0.2-1) mg/dl Direct Bilirubin 0.1 (0-0.2) mg/dl AST 34 (15-37) U/L ALT 50 (12-78) U/L Alkaline Phosphatase 73 (45-117) U/L Total Creatine Kinase (39-308) U/L Troponin I (0-0.045) ng/ml Total Protein 8.0 (6.4-8.2) gm/dl Albumin 4.0 (3.4-5.0) gm/dl Lipase 219 (73-393) U/L Urine Color Dark Yellow Urine Appearance Turbid A (Clear) Urine pH 5.0 (4.5-7.5) Ur Specific [place] 1.026 (1.000-1.030) Urine Protein 1+ H (Negative) Urine Glucose (UA) Negative (Negative) Urine Ketones 1+ H (Negative) Urine Blood Negative (Negative) Urine Nitrite Negative (Negative) Urine Bilirubin Negative (Negative) Urine Urobilinogen Negative (Negative) Ur Leukocyte Esterase Negative (Negative) Urine WBC (Auto) 1-5 (0-5) /hpf Urine RBC (Auto) 0-4 (0-4) /hpf U Hyaline Cast (Auto) 0 (0-5) /lpf U Epithel Cells (Auto) >30 H (0-5) /lpf Urine Bacteria (Auto) 1+ H (Negative) Ur Renal Epithelial Cell Not Reportable Urine Yeast Not Reportable 10/06/19 Range/Units 20:07 WBC (4.8-10.8) K/uL RBC (4.7-6.1) M/uL Hgb (14.0-18.0) g/dL Hct (42-52) % MCV (80-100) fL MCH (25-34) pg MCHC (32-36) g/dL RDW Std Deviation (36.4-46.3) fL RDW Coeff of Barbie (11.5-14.5) % Plt Count (130-400) K/uL MPV (7.4-10.4) fL Immature Gran % (Auto) % Neut % (Auto) % Lymph % (Auto) % [place] % (Auto) % Eos % (Auto) % Baso % (Auto) % Neut # (Auto) (1.4-6.5) K/uL Lymph # (Auto) (1.2-3.4) K/uL [place] # (Auto) (0.11-0.59) K/uL Eos # (Auto) (0-0.5) K/uL Baso # (Auto) (0-0.2) K/uL Immature Gran # (Auto) (0.00-0.02) K/uL Sodium (136-145) mmol/L Potassium (3.5-5.1) mmol/L Chloride (98-107) mmol/L Carbon Dioxide (21-32) mmol/L Anion Gap (3-11) BUN (7-18) mg/dl Creatinine (0.6-1.4) mg/dl Est Cr Clr Drug Dosing ml/min Est GFR ( Amer) Est GFR (Non-Af Amer) BUN/Creatinine Ratio (10-20) Glucose (70-99) mg/dl Calcium (8.5-10.1) mg/dl Phosphorus 3.9 (2.5-4.9) mg/dl Magnesium 2.1 (1.8-2.4) mg/dl Total Bilirubin (0.2-1) mg/dl Direct Bilirubin (0-0.2) mg/dl AST (15-37) U/L ALT (12-78) U/L Alkaline Phosphatase (45-117) U/L Total Creatine Kinase 624 H (39-308) U/L Troponin I < 0.015 (0-0.045) ng/ml Total Protein (6.4-8.2) gm/dl Albumin (3.4-5.0) gm/dl Lipase (73-393) U/L Urine Color Urine Appearance (Clear) Urine pH (4.5-7.5) Ur Specific [place] (1.000-1.030) Urine Protein (Negative) Urine Glucose (UA) (Negative) Urine Ketones (Negative) Urine Blood (Negative) Urine Nitrite (Negative) Urine Bilirubin (Negative) Urine Urobilinogen (Negative) Ur Leukocyte Esterase (Negative) Urine WBC (Auto) (0-5) /hpf Urine RBC (Auto) (0-4) /hpf U Hyaline Cast (Auto) (0-5) /lpf U Epithel Cells (Auto) (0-5) /lpf Urine Bacteria (Auto) (Negative) Ur Renal Epithelial Cell Urine Yeast Imaging Data Radiologist's Impression: CT SCAN OF THE ABDOMEN AND PELVIS WITHOUT CONTRAST CLINICAL HISTORY: difficulty urinating abd pain hx kidney stones COMPARISON STUDY: 05/20/2018 TECHNIQUE: CT scan of the abdomen and pelvis was performed from the lung bases to the proximal femurs. Images are reviewed in the axial, sagittal, and coronal planes. IV contrast was not administered for this examination. A dose lowering technique was utilized adhering to the principles of ALARA. CT DOSE: 2179.02 mGy.cm FINDINGS: Lower chest: There is a 5 mm solid nodule within the lingula. This remains similar to the preceding study. Minimal right paravertebral lower lobe groundglass opacities are likely atelectatic. Liver: There is hepatic steatosis. No focal masses are visualized in this noncontrast study Gallbladder: Unremarkable. Spleen: Normal in size and attenuation. Pancreas: Unremarkable. Adrenal glands: Unremarkable. Kidneys: There is a 35 mm lower pole right renal cyst. There is bilateral nephrolithiasis with a greater stone burden on the right. There is no hydronephrosis. There is right renal cortical scarring. No ureteral calculi are visualized. Bowel: There are no transition zones indicate bowel obstruction. There is colonic diverticulosis. There is no evidence of acute diverticulitis. The appendix appears normal. Peritoneum: There is no intraperitoneal free air or abdominal ascites. There are small fat-containing inguinal hernias Vasculature: The abdominal aorta is normal in course and caliber. Adenopathy: None. Pelvic viscera: There is an indwelling Gutierrez catheter. Air within the bladder is felt to be iatrogenic. Skeletal structures: There is bilateral L5 spondylolysis. There is a grade 1 spondylolisthesis of L5 on S1. There are multilevel degenerative changes present within the cervical spine. IMPRESSION: 1. No evidence of bowel obstruction. No evidence of free air 2. Normal appendix. No evidence of acute diverticulitis 3. Bilateral nephrolithiasis. No hydronephrosis. No ureteral or bladder calculi identified ACT 112: Negative or not required by law. Electronically signed by: Nicolás Latham M.D. 10/06/2019 8:29 PM Dictated: 10/06/192022 Transcribed: 10/06/192022 [facility] Narrative Vital signs stable. Labs show leukocytosis of 14.53. Creatinine is elevated 3.26. Previous creatinines have been within normal limits. CT does not show any obstructing urinary stone. CK is mildly elevated. Patient will continue to get IV fluids and be admitted to the hospitalist team discussed with [facility] hospitalist Dr. Pepper who accepted the patient. Impression & Plan RADHA (acute kidney injury), Acute urinary retention Discharge Plan Visit Data *Final* Discharge Date/Time: 10/06/19 22:50 Chief Complaint: Unable to Void Stated Complaint: UNABLE TO URINATE ED Provider: Jere Zambrano Discharge Problem: RADHA (acute kidney injury), Acute urinary retention Patient Disposition: Admitted As Inpatient Discharge Instructions Interventions: ED Discharge Assessment Last Done: 10/06/19 22:50
--- NOTE | 2019-10-07 02:50 | History & Physical Report ---
Date of Service October 06, 2019 Assessment & Plan (1) RADHA (acute kidney injury): 53yo C male with history of HTN presenting with urinary retention, RADHA with BUN=28 and Cr=3.26 (increased from 20 and 1.09 in September 2018). Electrolytes are WNL. Gutierrez placed in ER with small amount of urine passed. CT with bilateral nephrolithiasis with no hydronephrosis or evidence of obstruction. Ddx to include prerenal, possible dehydration, consider renal injury from Losartan and HCTZ use, mild elevation in CK, obstructive uropathy. -Admit to medical floor -Check urine Na and Cr, urine eosinophils -Urology consultation appreciated -Maintain Gutierrez catheter -Monitor strict I/Os -Avoid nephrotoxic agents - will hold Losartan and HCTZ for now -Renal dosing where needed -IVF, repeat chemistry panel and CK in AM Present on Admission?: Yes (2) Acute urinary retention: As above. -IVF -Maintain Gutierrez catheter -Follow cultures -Monitor I/Os Present on Admission?: Yes (3) Nephrolithiasis: Patient with history of the same requiring ESWL, stent placement. Imaging does not suggest hydronephrosis or obstruction at this time. Patient does not endorse symptoms consistent with stone passage -Urology consultation appreciated -Strain urine Present on Admission?: Yes (4) HTN (hypertension): Blood pressure acceptable -Hold Losartan and HCTZ in setting of RADHA -Montior BP F/E/N - NSS at 125mL/hr x 2 liters, electrolytes WNL, Heart Healthy diet Ppx - Low risk for DVT Code- Full Dispo - Admit to medical floor Present on Admission?: Yes Admission and Anticipated Discharge Date Admission Date: October 06, 2019 History of Present Illness Chief Complaint: Inability to urinate Primary Care Provider: DO John Cabrerasandra is a 53yo C male with history of HTN presenting with inability to urinate. Patient passed normal amount of urine today at 05:30. Since then he has been unable to urinate. He also reports some suprapubic pressure and abdominal bloating. He has history of nephrolithiasis s/p cystoscopy with ESWL and stent placement in the past. 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 He states that he was sweating a lot during work. He denies hematuria, dysuria. He denies nocturia, frequency, urgency. He states he has no difficulty starting his urinary stream and that his stream is strong and constant. He does note a small amount of dribbling at the end. Denies history of prostate issues. Denies pain in back/flank/testicles. Denies passage of stones. ER Course: NSS Allergies Allergy/AdvReac Type Severity Reaction Status Date / Time lisinopril AdvReac Cough Verified 10/06/19 22:32 Home Medications Home Medications Medication Instructions Recorded Confirmed Type multivitamin 1 tab PO QAM 04/16/18 10/06/19 History betamethasone dipropionate 0.05 % 1 appln TOP DAILY PRN #45 gm 09/20/18 10/06/19 Rx topical cream cholecalciferol (vitamin D3) 50 4,000 unit PO QAM #60 cap 10/01/18 10/06/19 Rx mcg (2,000 unit) capsule hydrochlorothiazide 50 mg tablet 50 mg PO DAILY #90 tab 01/20/19 10/06/19 Rx losartan 100 mg tablet 100 mg PO DAILY #90 tab 06/16/19 10/06/19 Rx Past Med/Surg History Medical History (Updated 10/07/19 @ 02:37 by Earline Pepper DO) Acute left flank pain (Resolved) Eczema HTN (hypertension) Hydronephrosis (Resolved) Impaired fasting glucose Morbid obesity Nephrolithiasis Osteoarthritis Renal colic on left side (Resolved) Ureteral calculus, right (Resolved) Vitamin D deficiency Surgical History History of cystoscopy Cystoscopy/ureteroscopy/laser lithotripsy/stent= 05/16/18= LMA#5 at [facility] History of lithotripsy X2; RIGHT ESWL= 04/26/18= LMA#5 [place] [facility] [place]P ureteral stent placement (05/16/18) Cystoscopy, stone extraction, laser lithotripsy, stent on the left side Right laser lithotripsy and stent Family History Father Heart disease Myocardial infarction, Onset Age: 76 Kidney stones Mother Hypertension Other Family history non-contributory Social History Smoking Status: Never smoker Second Hand Exposure: No; Do You Dip or Chew Tobacco: No; Hx Alcohol Use: No Hx Substance Use: No Preferred Language: German Communication Ability: Effective Visual Impairment: No Limitations Hearing Ability: Normal Sumo Wrestler Required: No Beliefs That Will Affect Care: None Current Living Situation: Spouse Other Information That Helps Us Care for You: No Feels Safe at Home: Yes Safety Concerns: Feels Safe At This Time Review of Systems Review of Systems: All systems reviewed & are unremarkable except as noted in HPI & below Physical Exam Physical Exam: General: patient resting comfortably, NAD, non-toxic in appearance, AA&O x 4 Skin: warm, dry, intact, no rashes or lesions HEENT: NC/AT, PERRL, EOMI, anicteric sclera, conjunctiva without injection, external ear normal to inspection and nontender, nares patent, moist mucus membranes, dentition intact, no oropharyngeal lesions, neck supple, trachea midline, no LAD, no thyromegaly, no JVD Heart: +S1/S2, regular, no m/r/g Lungs: equal air entry bilaterally, no rales/rhonchi/wheezes Abd: +BS, soft, mildly tender with deep palpation, no rebound/guarding/peritoneal signs Ext: warm, 2+ pulses in UE/LE bilaterally, no clubbing/cyanosis or edema Neuro: nonfocal, patient AA&O x 4, speech intact, no facial droop, moving all extremities on command with equal strength 5/5 Results & Data Results & Data ([facility]) Vital Signs (Past 12 Hours) Vital Signs Temp Pulse Pulse Pulse Resp BP BP 10/06/19 23:14 37 C 86 18 132/81 10/06/19 22:28 84 18 134/87 10/06/19 20:29 85 16 124/82 10/06/19 18:49 36.4 C L 98 H 20 143/86 H Pulse Ox 10/06/19 23:14 99 10/06/19 22:28 99 10/06/19 20:29 94 10/06/19 18:49 97 Laboratory Results Lab Results 10/06/19 10/06/19 10/06/19 Range/Units 20:07 20:07 20:07 WBC 14.53 H (4.8-10.8) K/uL RBC 4.97 (4.7-6.1) M/uL Hgb 15.5 (14.0-18.0) g/dL Hct 42.8 (42-52) % MCV 86.1 (80-100) fL MCH 31.2 (25-34) pg MCHC 36.2 H (32-36) g/dL RDW Std Deviation 42.0 (36.4-46.3) fL RDW Coeff of Barbie 13.3 (11.5-14.5) % Plt Count 211 (130-400) K/uL MPV 11.4 H (7.4-10.4) fL Immature Gran % (Auto) 0.3 % Neut % (Auto) 77.0 % Lymph % (Auto) 12.6 % [place] % (Auto) 10.0 % Eos % (Auto) 0.0 % Baso % (Auto) 0.1 % Neut # (Auto) 11.19 H (1.4-6.5) K/uL Lymph # (Auto) 1.83 (1.2-3.4) K/uL [place] # (Auto) 1.46 H (0.11-0.59) K/uL Eos # (Auto) 0.00 (0-0.5) K/uL Baso # (Auto) 0.01 (0-0.2) K/uL Immature Gran # (Auto) 0.04 H (0.00-0.02) K/uL Sodium 139 (136-145) mmol/L Potassium 3.7 (3.5-5.1) mmol/L Chloride 105 (98-107) mmol/L Carbon Dioxide 24 (21-32) mmol/L Anion Gap 10.0 (3-11) BUN 28 H (7-18) mg/dl Creatinine 3.26 H (0.6-1.4) mg/dl Est Cr Clr Drug Dosing 38.5 ml/min Est GFR ( Amer) 23.8 Est GFR (Non-Af Amer) 20.5 BUN/Creatinine Ratio 8.7 L (10-20) Glucose 115 H (70-99) mg/dl Calcium 9.9 (8.5-10.1) mg/dl Phosphorus (2.5-4.9) mg/dl Magnesium (1.8-2.4) mg/dl Total Bilirubin 0.7 (0.2-1) mg/dl Direct Bilirubin 0.1 (0-0.2) mg/dl AST 34 (15-37) U/L ALT 50 (12-78) U/L Alkaline Phosphatase 73 (45-117) U/L Total Creatine Kinase (39-308) U/L Troponin I (0-0.045) ng/ml Total Protein 8.0 (6.4-8.2) gm/dl Albumin 4.0 (3.4-5.0) gm/dl Lipase 219 (73-393) U/L Urine Color Dark Yellow Urine Appearance Turbid A (Clear) Urine pH 5.0 (4.5-7.5) Ur Specific [place] 1.026 (1.000-1.030) Urine Protein 1+ H (Negative) Urine Glucose (UA) Negative (Negative) Urine Ketones 1+ H (Negative) Urine Blood Negative (Negative) Urine Nitrite Negative (Negative) Urine Bilirubin Negative (Negative) Urine Urobilinogen Negative (Negative) Ur Leukocyte Esterase Negative (Negative) Urine WBC (Auto) 1-5 (0-5) /hpf Urine RBC (Auto) 0-4 (0-4) /hpf U Hyaline Cast (Auto) 0 (0-5) /lpf U Epithel Cells (Auto) >30 H (0-5) /lpf Urine Bacteria (Auto) 1+ H (Negative) Ur Renal Epithelial Cell Not Reportable Urine Yeast Not Reportable Ur Random Sodium mmol/L Ur Random Urea Nitrogn mg/dl 10/06/19 10/06/19 10/06/19 Range/Units 20:07 23:32 23:32 WBC (4.8-10.8) K/uL RBC (4.7-6.1) M/uL Hgb (14.0-18.0) g/dL Hct (42-52) % MCV (80-100) fL MCH (25-34) pg MCHC (32-36) g/dL RDW Std Deviation (36.4-46.3) fL RDW Coeff of Barbie (11.5-14.5) % Plt Count (130-400) K/uL MPV (7.4-10.4) fL Immature Gran % (Auto) % Neut % (Auto) % Lymph % (Auto) % [place] % (Auto) % Eos % (Auto) % Baso % (Auto) % Neut # (Auto) (1.4-6.5) K/uL Lymph # (Auto) (1.2-3.4) K/uL [place] # (Auto) (0.11-0.59) K/uL Eos # (Auto) (0-0.5) K/uL Baso # (Auto) (0-0.2) K/uL Immature Gran # (Auto) (0.00-0.02) K/uL Sodium (136-145) mmol/L Potassium (3.5-5.1) mmol/L Chloride (98-107) mmol/L Carbon Dioxide (21-32) mmol/L Anion Gap (3-11) BUN (7-18) mg/dl Creatinine (0.6-1.4) mg/dl Est Cr Clr Drug Dosing ml/min Est GFR ( Amer) Est GFR (Non-Af Amer) BUN/Creatinine Ratio (10-20) Glucose (70-99) mg/dl Calcium (8.5-10.1) mg/dl Phosphorus 3.9 (2.5-4.9) mg/dl Magnesium 2.1 (1.8-2.4) mg/dl Total Bilirubin (0.2-1) mg/dl Direct Bilirubin (0-0.2) mg/dl AST (15-37) U/L ALT (12-78) U/L Alkaline Phosphatase (45-117) U/L Total Creatine Kinase 624 H (39-308) U/L Troponin I < 0.015 (0-0.045) ng/ml Total Protein (6.4-8.2) gm/dl Albumin (3.4-5.0) gm/dl Lipase (73-393) U/L Urine Color Urine Appearance (Clear) Urine pH (4.5-7.5) Ur Specific [place] (1.000-1.030) Urine Protein (Negative) Urine Glucose (UA) (Negative) Urine Ketones (Negative) Urine Blood (Negative) Urine Nitrite (Negative) Urine Bilirubin (Negative) Urine Urobilinogen (Negative) Ur Leukocyte Esterase (Negative) Urine WBC (Auto) (0-5) /hpf Urine RBC (Auto) (0-4) /hpf U Hyaline Cast (Auto) (0-5) /lpf U Epithel Cells (Auto) (0-5) /lpf Urine Bacteria (Auto) (Negative) Ur Renal Epithelial Cell Urine Yeast Ur Random Sodium 89 mmol/L Ur Random Urea Nitrogn 496 Cancelled mg/dl Diagnostic Findings CT SCAN OF THE ABDOMEN AND PELVIS WITHOUT CONTRAST CLINICAL HISTORY: difficulty urinating abd pain hx kidney stones COMPARISON STUDY: 05/20/2018 TECHNIQUE: CT scan of the abdomen and pelvis was performed from the lung bases to the proximal femurs. Images are reviewed in the axial, sagittal, and coronal planes. IV contrast was not administered for this examination. A dose lowering technique was utilized adhering to the principles of ALARA. CT DOSE: 2179.02 mGy.cm FINDINGS: Lower chest: There is a 5 mm solid nodule within the lingula. This remains similar to the preceding study. Minimal right paravertebral lower lobe groundglass opacities are likely atelectatic. Liver: There is hepatic steatosis. No focal masses are visualized in this noncontrast study Gallbladder: Unremarkable. Spleen: Normal in size and attenuation. Pancreas: Unremarkable. Adrenal glands: Unremarkable. Kidneys: There is a 35 mm lower pole right renal cyst. There is bilateral nephrolithiasis with a greater stone burden on the right. There is no hydronephrosis. There is right renal cortical scarring. No ureteral calculi are visualized. Bowel: There are no transition zones indicate bowel obstruction. There is colonic diverticulosis. There is no evidence of acute diverticulitis. The appendix appears normal. Peritoneum: There is no intraperitoneal free air or abdominal ascites. There are small fat-containing inguinal hernias Vasculature: The abdominal aorta is normal in course and caliber. Adenopathy: None. Pelvic viscera: There is an indwelling Gutierrez catheter. Air within the bladder is felt to be iatrogenic. Skeletal structures: There is bilateral L5 spondylolysis. There is a grade 1 spondylolisthesis of L5 on S1. There are multilevel degenerative changes present within the cervical spine. IMPRESSION: 1. No evidence of bowel obstruction. No evidence of free air 2. Normal appendix. No evidence of acute diverticulitis 3. Bilateral nephrolithiasis. No hydronephrosis. No ureteral or bladder calculi identified ACT 112: Negative or not required by law. Electronically signed by: Nicolás Latham M.D. 10/06/2019 8:29 PM Dictated: 10/06/192022 Transcribed: 10/06/192022 ECG Additional Comments: Study shows NSR at 82, normal axis, JF=964, QRS=86, MRn=848, nonspecific T wave flattening present in anterior leads. Code Status & VTE Plan Code Status Full PG Care Time/CCT Total # of Minutes Spent Total Time Spent with Patient: Total time spent is greater than 50% in coordination of care (as documented) at patient's floor/unit and/or counseling patient: Coding Level of Care Code 31261 Initial Inpt Care Lvl 3 Diagnoses RADHA (acute kidney injury) N17.9 Acute urinary retention R33.8 Nephrolithiasis N20.0 HTN (hypertension) I10 Hypertension type: essential hypertension (1) HTN (hypertension) Hypertension type: essential hypertension Qualified Code(s): I10 - Essential (primary) hypertension
[2019-10-07 08:26] LABS: Basophils # (auto) 0.03 K/uL (0-0.2); Basophils % (auto) 0.4 %; Eosinophils # (auto) 0.17 K/uL (0-0.5); Eosinophils % (auto) 2.1 %; Hematocrit (blood only) 39.9 % (42-52); Immature Granulocytes # (auto) 0.01 K/uL (0.00-0.02); Immature Granulocytes % (auto) 0.1 %; Lymphocytes # (auto) 1.97 K/uL (1.2-3.4); Lymphocytes % (auto) 23.8 %; Mean Corpuscular Hgb Conc 35.1 g/dL (32-36); Mean Corpuscular Volume 88.3 fL (80-100); Mean Platelet Volume 11.1 fL (7.4-10.4); Monocytes # (auto) 0.88 K/uL (0.11-0.59); Monocytes % (auto) 10.7 %; Neutrophils % (auto) 62.9 %; Platelet Count 185 K/uL (130-400); RDW Coefficient of Variation 13.6 % (11.5-14.5); RDW Standard Deviation 44.1 fL (36.4-46.3); Red Blood Count 4.52 M/uL (4.7-6.1); White Blood Count 8.26 K/uL (4.8-10.8)
[2019-10-07 09:04] LABS: BUN Creatinine Ratio 13.6 (10-20); Calcium 8.9 mg/dl (8.5-10.1); Est GFR (Non-African American) 37.9; Potassium 3.7 mmol/L (3.5-5.1)
--- NOTE | 2019-10-07 10:33 | Urology Consultation ---
Date of Consultation October 07, 2019 Assessment & Plan (1) Acute urinary retention: (2) RADHA (acute kidney injury): (3) Nephrolithiasis: 53 year-old male patient admitted to hospital secondary to elevated creatinine and acute urinary retention. -Clinically feeling better since placement of anrett catheter. -Remains afebrile. -CT notable for bilateral nephrolithiasis, no hydronephrosis, no evidence of obstruction. -No need for acute urologic intervention, recommend continuing supportive care. -White count and creatinine improving, continue to monitor. -Urine culture pending. -Recommend initiating Flomax and continue arnett catheter for 7-10 days. -Will continue to follow while inpatient. History of Present Illness Reason for Consultation: bilateral nephrolithiasis, decreased urine output Attending Physician: Adam Huff History of Present Illness 53 year-old male patient, with past medical history of nephrolithiasis, hypertension, and osteoarthritis presented to the hospital late last evening with complaints of inability to avoid. Urology consulted due to bilateral nephrolithiasis and decreased urine output. Patient known to [facility] [place] urology, follows with Dr. Green Chart review: Afebrile White count 8.26 (14.53 on admission) Hemoglobin 14.0 Creatinine 1.96 (3.26 on admission) Urinalysis negative for blood, 1-5 wbc, >30 epithelial cells, +1 bacteria, negative nitrates Urine culture pending. Imaging: CT reviewed and notable for bilateral nephrolithiasis, burden greater on right. No hydronephrosis. No ureteral stones. No notable obstruction. Patient examined, alert and in no acute distress. States he was unable to void for over 8 hours yesterday when he began to notice increase in suprapubic and right flank discomfort. Presented to ER where arnett catheter was placed and he felt immediate resolution in discomfort. No recent passage of stone. Not currently on medication for urinary pattern. Baseline urination status he reports is "good". Stream is reported as good. Denies frequency or urgency. Denies dysuria or hematuria. No episodes of nocturia. Feels he empties his bladder. Denies fevers or chills. No reported nausea or vomiting. No flank pain or abdominal pain since arnett insertion. Does try to stay well hydrated while at work. Denies additional urologic concerns today. Allergies Allergy/AdvReac Type Severity Reaction Status Date / Time lisinopril AdvReac Cough Verified 10/06/19 22:32 Home Medications Home Medications Medication Instructions Recorded Confirmed Type multivitamin 1 tab PO QAM 04/16/18 10/06/19 History betamethasone dipropionate 0.05 % 1 appln TOP DAILY PRN #45 gm 09/20/18 10/06/19 Rx topical cream cholecalciferol (vitamin D3) 50 4,000 unit PO QAM #60 cap 10/01/18 10/06/19 Rx mcg (2,000 unit) capsule hydrochlorothiazide 50 mg tablet 50 mg PO DAILY #90 tab 01/20/19 10/06/19 Rx losartan 100 mg tablet 100 mg PO DAILY #90 tab 06/16/19 10/06/19 Rx Patient History Medical History Acute left flank pain (Resolved) Eczema HTN (hypertension) Hydronephrosis (Resolved) Impaired fasting glucose Morbid obesity Nephrolithiasis Osteoarthritis Renal colic on left side (Resolved) Ureteral calculus, right (Resolved) Vitamin D deficiency Surgical History History of cystoscopy Cystoscopy/ureteroscopy/laser lithotripsy/stent= 05/16/18= LMA#5 at [facility] History of lithotripsy X2; RIGHT ESWL= 04/26/18= LMA#5 [place] [facility] [place]P ureteral stent placement (05/16/18) Cystoscopy, stone extraction, laser lithotripsy, stent on the left side Right laser lithotripsy and stent Family History Father Heart disease Myocardial infarction, Onset Age: 76 Kidney stones Mother Hypertension Other Family history non-contributory Social History Smoking Status: Never smoker Second Hand Exposure: No; Do You Dip or Chew Tobacco: No; Hx Alcohol Use: No Hx Substance Use: No Preferred Language: German Communication Ability: Effective Visual Impairment: No Limitations Hearing Ability: Normal Surgical Physician Assistant Required: No Beliefs That Will Affect Care: None Current Living Situation: Spouse Other Information That Helps Us Care for You: No Feels Safe at Home: Yes Safety Concerns: Feels Safe At This Time Review of Systems Constitutional: as per Subjective / HPI; no fever and no chills Eyes: no problem reported Ear, Nose, Mouth, Throat: no dizziness and no problem reported Respiratory: no cough and no dyspnea Cardiovascular: no edema Gastrointestinal: as per Subjective / HPI; no nausea and no vomiting Genitourinary: + as per Subjective / HPI Musculoskeletal: as per Subjective / HPI Integumentary: no rash and no wounds Neurologic: no dizziness and no syncope Endocrine: no polyuria Hematologic / Lymphatic: no easy bleeding Physical Exam Constitutional: well developed and well nourished; no acute distress and not ill appearing Eyes: no eyelid abnormality ENMT: Ears: no external ear abnormality Nose: no external nose abnormality Neck: normal visual inspection and trachea midline Respiratory: normal respiratory effort and able to speak in complete sentences; no respiratory distress and no audible wheezes Cardiovascular: Extremities: no calf tenderness and no edema Gastrointestinal (Abdomen): Inspection/Auscultation: abdomen normal to inspection; abdomen not distended Percussion/Palpation: abdomen soft; abdomen nontender and no guarding Musculoskeletal: Moves all extremities without difficulty. Skin: No visible rashes, lesions, or wounds noted. Neurologic: moves all extremities and awake Psychiatric: Orientation: alert, oriented x 3 and cooperative Affect: euthymic affect Genitourinary: no CVA tenderness Arnett catheter intact draining clear yellow urine. Results & Data Vital Signs (Past 12 Hours) Vital Signs Temp Pulse Resp BP Pulse Ox 10/07/19 08:20 36.5 C 75 16 162/74 H 99 10/06/19 23:14 37 C 86 18 132/81 99 PG Care Time/CCT Total # of Minutes Spent Total Time Spent with Patient: Total time spent is greater than 50% in coordination of care (as documented) at patient's floor/unit and/or counseling patient: Coding Level of Care Code 99164 Inpt Consult Level 4 Diagnoses Acute urinary retention R33.8 RADHA (acute kidney injury) N17.9 Nephrolithiasis N20.0
--- NOTE | 2019-10-07 23:05 | Hospitalist Progress Note ---
Date of Service October 07, 2019 Assessment & Plan (1) RADHA (acute kidney injury): 53yo C male with history of HTN presenting with urinary retention, RADHA with BUN=28 and Cr=3.26 (increased from 20 and 1.09 in September 2018). Electrolytes are WNL. Arnett placed in ER with small amount of urine passed. CT with bilateral nephrolithiasis with no hydronephrosis or evidence of obstruction. Ddx to include prerenal, possible dehydration, consider renal injury from Losartan and HCTZ use, mild elevation in CK, obstructive uropathy. -Admit to medical floor -Check urine Na and Cr, urine eosinophils -Urology consultation appreciated Patient improved after arnett. will monitor blood work. (2) Acute urinary retention: As above. -IVF -Maintain Arnett catheter -Follow cultures -Monitor I/Os (3) Nephrolithiasis: Patient with history of the same requiring ESWL, stent placement. Imaging does not suggest hydronephrosis or obstruction at this time. Patient does not endorse symptoms consistent with stone passage -Urology consultation appreciated -Strain urine (4) HTN (hypertension): Blood pressure acceptable -Hold Losartan and HCTZ in setting of RADHA -Monitor BP Ppx - Low risk for DVT Code- Full Admission and Anticipated Discharge Date Admission Date: October 06, 2019 Subjective 53 yo male reports feeling well. No pain after having arnett placed. Review of Systems Review of Systems: All systems reviewed & are unremarkable except as noted in HPI & below Physical Exam Physical Exam: General: patient resting comfortably, NAD, non-toxic in appearance, AA&O x 4 Skin: warm, dry, intact, no rashes or lesions HEENT: NC/AT, PERRL, EOMI, anicteric sclera, conjunctiva without injection, external ear normal to inspection and nontender, nares patent, moist mucus membranes, dentition intact, no oropharyngeal lesions, neck supple, trachea midline, no LAD, no thyromegaly, no JVD Heart: +S1/S2, regular, no m/r/g Lungs: equal air entry bilaterally, no rales/rhonchi/wheezes Abd: +BS, soft, mildly tender with deep palpation, no rebound/guarding/peritoneal signs Ext: warm, 2+ pulses in UE/LE bilaterally, no clubbing/cyanosis or edema Neuro: nonfocal, patient AA&O x 4, speech intact, no facial droop, moving all extremities on command with equal strength 5/5 Results & Data Results & Data ([facility]) Vital Signs (Past 12 Hours) Vital Signs Temp Pulse Resp BP Pulse Ox 10/07/19 15:08 36.8 C 71 17 132/81 97 PG Care Time/CCT Total # of Minutes Spent Total Time Spent with Patient: Total time spent is greater than 50% in coordination of care (as documented) at patient's floor/unit and/or counseling patient: Coding Level of Care Code 22114 Subseq Hosp Care Lvl 2 Diagnoses RADHA (acute kidney injury) N17.9 Acute urinary retention R33.8 Nephrolithiasis N20.0 HTN (hypertension) I10 Hypertension type: essential hypertension Time Spent (min) 25 (1) HTN (hypertension) Hypertension type: essential hypertension Qualified Code(s): I10 - Essential (primary) hypertension
[2019-10-08] MEDS: ACETAMINOPHEN 325 MG TAB PO PRN ×2 (07:32→14:39)
--- NOTE | 2019-10-08 07:44 | Urology Progress Note ---
Date of Service October 08, 2019 Assessment & Plan (1) RADHA (acute kidney injury): (2) Acute urinary retention: Await labs this morning to see if his creatinine is improved further Continue Gutierrez catheter for 7 to 10 days Tamsulosin Stones or nonissue at present can be managed as an outpatient Can follow-up as an outpatient for catheter removal Please call us if there are further developments during this hospitalization Subjective Status post admission yesterday secondary to urinary retention He is subjectively improved with a catheter in place Mild nausea this morning but no other complaints Review of Systems Review of Systems: All systems reviewed & are unremarkable except as noted in HPI & below Physical Exam Physical Exam: Clear urine in the catheter Constitutional: well developed and well nourished Neck: neck nontender Respiratory: normal respiratory effort; no respiratory distress and does not use accessory muscles Cardiovascular: Rate/Rhythm: regular rate Vessels: radial pulses present Extremities: no edema Gastrointestinal (Abdomen): Inspection/Auscultation: abdomen normal to inspection Percussion/Palpation: abdomen soft; abdomen nontender and no guarding Musculoskeletal: Head/Neck/Chest: normocephalic and head atraumatic Extremities: extremities normal to inspection Skin: no rashes and no lesions Trauma: no evidence of skin trauma Neurologic: awake; not obtunded Speech / Cognition: normal speech Motor/Sensory: no tremor Psychiatric: Orientation: alert and oriented x 3 Genitourinary: no CVA tenderness Lymphatic: no lymphadenopathy Results & Data Vital Signs (Past 12 Hours) Vital Signs Temp Pulse Resp BP Pulse Ox 10/08/19 06:59 36.7 C 74 18 142/89 H 92 10/07/19 23:08 36.9 C 88 18 131/77 93 PG Care Time/CCT Total # of Minutes Spent Total Time Spent with Patient: Total time spent is greater than 50% in coordination of care (as documented) at patient's floor/unit and/or counseling patient: Coding Level of Care Code 17149 Subseq Hosp Care Lvl 2 Diagnoses RADHA (acute kidney injury) N17.9 Acute urinary retention R33.8
[2019-10-08 11:14] LABS: Hematocrit (blood only) 42.3 % (42-52); Hemoglobin 15.2 g/dL (14.0-18.0); Mean Corpuscular Hemoglobin 31.2 pg (25-34); Mean Corpuscular Hgb Conc 35.9 g/dL (32-36); Mean Corpuscular Volume 86.9 fL (80-100); Mean Platelet Volume 11.3 fL (7.4-10.4); Platelet Count 193 K/uL (130-400); RDW Standard Deviation 41.4 fL (36.4-46.3); Red Blood Count 4.87 M/uL (4.7-6.1)
[2019-10-08 11:51] LABS: BUN Creatinine Ratio 14.1 (10-20); Calcium 9.1 mg/dl (8.5-10.1); Est GFR (Non-African American) 59.5; Potassium 3.4 mmol/L (3.5-5.1)
--- NOTE | 2019-10-09 08:17 | Electrocardiogram Report ---
Test Reason : Blood Pressure : / mmHG Vent. Rate : 082 BPM Atrial Rate : 082 BPM P-R Int : 160 ms QRS Dur : 086 ms QT Int : 408 ms P-R-T Axes : 064 039 022 degrees QTc Int : 476 ms Normal sinus rhythm Nonspecific T wave abnormality Abnormal ECG When compared with ECG of 13-APR-2018 11:00, Nonspecific T wave abnormality now evident in Anterolateral leads Confirmed by Maynor Perez ([id number]) on 10/09/2019 8:17:29 AM Referred By: REFERRED SELF Confirmed By:Maynor Perez
--- NOTE | 2019-10-15 07:52 | Discharge Summary ---
Date of Service October 08, 2019 Admission HPI Per Admitting Provider John Carlin is a 53yo C male with history of HTN presenting with inability to urinate. Patient passed normal amount of urine today at 05:30. Since then he has been unable to urinate. He also reports some suprapubic pressure and abdominal bloating. He has history of nephrolithiasis s/p cystoscopy with ESWL and stent placement in the past. 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 He states that he was sweating a lot during work. He denies hematuria, dysuria. He denies nocturia, frequency, urgency. He states he has no difficulty starting his urinary stream and that his stream is strong and constant. He does note a small amount of dribbling at the end. Denies history of prostate issues. Denies pain in back/flank/testicles. Denies passage of stones. ER Course: NSS Principal Diagnosis acute kidney injury Discharge Exam General: patient resting comfortably, NAD, non-toxic in appearance, AA&O x 4 Skin: warm, dry, intact, no rashes or lesions HEENT: NC/AT, PERRL, EOMI, anicteric sclera, conjunctiva without injection, external ear normal to inspection and nontender, nares patent, moist mucus membranes, dentition intact, no oropharyngeal lesions, neck supple, trachea midline, no LAD, no thyromegaly, no JVD Heart: +S1/S2, regular, no m/r/g Lungs: equal air entry bilaterally, no rales/rhonchi/wheezes Abd: +BS, soft, mildly tender with deep palpation, no rebound/guarding/peritoneal signs Ext: warm, 2+ pulses in UE/LE bilaterally, no clubbing/cyanosis or edema Neuro: nonfocal, patient AA&O x 4, speech intact, no facial droop, moving all extremities on command with equal strength 5/5 Discharge Data Allergies Allergy/AdvReac Type Severity Reaction Status Date / Time lisinopril AdvReac Cough Verified 10/13/19 13:14 Consultations 10/06/19 21:24 ED Decision to Admit Stat 10/07/19 02:45 Consult Urology Routine Ordered Studies 10/06/19 19:34 CT abd pelvis wo con Stat Hospital Course (1) RADHA (acute kidney injury): 53yo C male with history of HTN presenting with urinary retention, RADHA with BUN=28 and Cr=3.26 (increased from 20 and 1.09 in September 2018). Electrolytes are WNL. Arnett placed in ER with small amount of urine passed. CT with bilateral nephrolithiasis with no hydronephrosis or evidence of obstruction. Ddx to include prerenal, possible dehydration, consider renal injury from Losartan and HCTZ use, mild elevation in CK, obstructive uropathy. -Admit to medical floor -Urology consultation appreciated Patient improved after arnett. Continue Arnett catheter for 7 to 10 days Tamsulosin Stones or nonissue at present can be managed as an outpatient Can follow-up as an outpatient for catheter removal (2) Acute urinary retention: As above. Does not sappear to have UTI. (3) Nephrolithiasis: Patient with history of the same requiring ESWL, stent placement. Imaging does not suggest hydronephrosis or obstruction at this time. Patient does not endorse symptoms consistent with stone passage -Urology consultation appreciated -Strain urine (4) HTN (hypertension): Blood pressure acceptable resume home meds Total Time Total Time Spent Total Time Spent (In Minutes): 32 Total Time Includes: Examination of the Patient, Discharge Planning and Medication Reconciliation Discharge Plan Discharge Items Patient Disposition: Home - Self-Care Reason For Visit: RADHA Discharge Diagnosis: Acute kidney failure Activity: Resume your previous activity Non-emergency contact: Primary Care Provider Call non-emergency contact if: you have any medication questions Follow-up/Referrals: Christel Ying DO [Primary Care Provider] - 10/20/19 9:20 am Diet: Heart Healthy Addtl Attending Provider Instructions: Continue Arnett catheter for 7 to 10 days will discharge on Tamsulosin Stones or nonissue at present can be managed as an outpatient Can follow-up as an outpatient for catheter removal Pending Studies at Discharge: No Stand-Alone Forms: My [email or web address], Work/School Release (Inpt), Smoking Cessation Medications and DC Order Prescriptions: New tamsulosin 0.4 mg capsule 0.4 mg PO DAILY Qty: 30 RF: 0 Continued betamethasone dipropionate 0.05 % cream 1 appln TOP DAILY PRN (Reason: skin irritation) Qty: 45 RF: 0 hydrochlorothiazide 50 mg tablet 50 mg PO DAILY Qty: 90 RF: 3 losartan 100 mg tablet 100 mg PO DAILY Qty: 90 RF: 3 cholecalciferol (vitamin D3) [Vitamin D3] 2,000 unit capsule 4,000 unit PO QAM Qty: 60 RF: 0 multivitamin Tablet 1 tab PO QAM RF: 0 No Action aspirin [Luis Aspirin] 325 mg Tablet 325 mg PO QAM RF: 0 Discharge Orders: Discharge Order (Routine); Ordered 10/08/19 Ordered By: Adam West/Other Patient Handouts: Emptying and Cleaning Your Urinary Catheter Bag, Indwelling Urinary Catheter Dc, Discharge Instructions Caring for Your Leg Bag Admission Data Admit Date/Time: 10/06/19 22:05 Attending Provider: Adam Huff Admit Provider: Earline Pepper Primary Care Provider: Christel Ying Other Providers: Fernando Torres Other Interventions: Discharge Summary Assessment (RN) Last Done: 10/08/19 15:09 DC Date/Time DO NOT enter until pt leaves facility: 10/08/19 16:40 Coding Level of Care Code D/C Day Management >30 mins Diagnoses RADHA (acute kidney injury) N17.9 Acute urinary retention R33.8 Nephrolithiasis N20.0 HTN (hypertension) I10 Hypertension type: essential hypertension Time Spent (min) 32
== END 2019-10-08 16:40 | disposition home or self-care (01) ==
LOC: ED 18:47 → SUATTDRO 22:05 → INTOOBSV 22:05 → 3N 22:05

== ENCOUNTER 2020-05-10 08:34 | Inpatient (IN) ==
--- NOTE | 2020-04-27 15:26 | PAT Medication Instructions ---
Medication Instructions Date of Service April 27, 2020 Home Medications Medication Instructions Recorded betamethasone dipropionate 0.05 % 1 appln TOP DAILY PRN #45 gm 09/20/18 topical cream cholecalciferol (vitamin D3) 50 4,000 unit PO QAM #60 cap 10/01/18 mcg (2,000 unit) capsule losartan 100 mg tablet 100 mg PO DAILY #90 tab 06/16/19 hydrochlorothiazide 50 mg tablet 50 mg PO DAILY #90 tab 12/25/19 omeprazole 40 mg capsule,delayed 40 mg PO DAILY #90 cap 02/23/20 release potassium chloride 20 mEq oral 20 meq PO DAILY #30 ea 03/09/20 packet tamsulosin 0.4 mg capsule 0.4 mg PO DAILY #90 cap 04/13/20 multivitamin 1 tab PO QAM betamethasone dipropionate 0.05 % topical cream 1 appln TOP DAILY PRN cholecalciferol (vitamin D3) 50 mcg (2,000 unit) capsule 4,000 unit PO QAM losartan 100 mg tablet 100 mg PO DAILY hydrochlorothiazide 50 mg tablet 50 mg PO DAILY aspirin 81 mg PO QAM omeprazole 40 mg capsule,delayed release 40 mg PO DAILY potassium chloride 20 mEq oral packet 20 meq PO DAILY tamsulosin 0.4 mg capsule 0.4 mg PO DAILY STOP taking 24 hours before surgery betamethasone dipropionate 0.05 % topical cream 1 appln TOP DAILY PRN DO NOT take the morning of surgery multivitamin 1 tab PO QAM cholecalciferol (vitamin D3) 50 mcg (2,000 unit) capsule 4,000 unit PO QAM losartan 100 mg tablet 100 mg PO DAILY hydrochlorothiazide 50 mg tablet 50 mg PO DAILY potassium chloride 20 mEq oral packet 20 meq PO DAILY Take morning of surgery With a small sip of water, OTHERWISE NOTHING TO EAT OR DRINK AFTER MIDNIGHT: aspirin 81 mg PO QAM (unless otherwise instructed by surgeon) omeprazole 40 mg capsule,delayed release 40 mg PO DAILY tamsulosin 0.4 mg capsule 0.4 mg PO DAILY Other Notes If you have any questions please call us at [phone] or [phone] or [phone] or [phone]
--- NOTE | 2020-04-29 10:24 | Anesthesiology Consultation ---
Date of Service April 29, 2020 Assessment & Plan (1) Encounter for pre-operative examination: COVID Status: As of 04/29 assessment, patient denies travel to endemic area, known exposure/sick contacts, or symptoms of COVID19. Patient was covid + in December of 2019. Patient instructed that they and their household members must follow strict social distancing guidelines, wear a mask in public and avoid travel/events/gatherings for 14 days prior to surgery. Preoperative COVID19 testing to be completed prior to surgery per surgeon's arrangements. Patient made aware to self-isolate as much as possible between COVID testing and surgery. Chart Review Chart Review: Acceptable Risk for Surgery and Patient seen in Pre Admission Testing Teaching & Discussion Instructed NPO after midnight before surgery, except medications with 15 cc of water. Medication instructions provided according to the PAT guidelines. History Surgery Operation Date: 05/10/20 12:25 Proposed Procedures p L5-S1 Decompression Fusion, Spinal Cord Monitoring - Negro Browning, Height/Weight Height: 5 ft 10 in Weight: 156.7 kg Allergies Allergy/AdvReac Type Severity Reaction Status Date / Time lisinopril AdvReac Intermediate Cough Verified 04/27/20 08:48 Medications Home Medications Medication Instructions Recorded Confirmed Last Taken multivitamin 1 tab PO QAM 04/16/18 04/27/20 03/02/20 08:00 betamethasone dipropionate 0.05 % 1 appln TOP DAILY PRN #45 gm 09/20/18 04/27/20 Unknown topical cream cholecalciferol (vitamin D3) 50 4,000 unit PO QAM #60 cap 10/01/18 04/27/20 03/02/20 08:00 mcg (2,000 unit) capsule losartan 100 mg tablet 100 mg PO DAILY #90 tab 06/16/19 04/27/20 03/03/20 08:00 hydrochlorothiazide 50 mg tablet 50 mg PO DAILY #90 tab 12/25/19 04/27/20 03/03/20 08:00 aspirin 81 mg PO QAM 02/11/20 04/27/20 02/22/20 omeprazole 40 mg capsule,delayed 40 mg PO DAILY #90 cap 02/23/20 04/27/20 03/03/20 08:00 release potassium chloride 20 mEq oral 20 meq PO DAILY #30 ea 03/09/20 04/27/20 Unknown packet tamsulosin 0.4 mg capsule 0.4 mg PO DAILY #90 cap 04/13/20 04/27/20 Unknown Past Medical History Medical History Eczema GERD (gastroesophageal reflux disease) controlled Herniated disc History of COVID-19 12/2019 (symptoms at time of fever, chest tightness, loss of taste/smell) > resolved History of kidney stones HTN (hypertension) Impaired fasting glucose Lumbar degenerative disc disease Morbid obesity Osteoarthritis Exercise / Class Metabolic Activity II 4-5 Yardwork/Stairs/Walk up hill Past Family History Family History Father Heart disease Kidney stones Myocardial infarction, Onset Age: 76 Mother Hypertension Other Family history non-contributory No family history of adverse response to anesthesia Past Surgical History Surgical History History of colonoscopy History of cystoscopy History of lithotripsy multiple Right [place]SWL[place]26[place] [facility] [place] [facility] [place], laser destruction of stone: 03/03/20: LMA#5 at [facility] Lump left testicular mass removal (benign) [place] teeth removed Past Anesthesia History No Hx of Anesthesia Complications (other than "bloating" for several days after last lithotripsy) and No Family Hx of Anesthesia Complications History of PONV No Hx of PONV and Hx of Motion Sickness Social History Smoking Status: Never smoker Do You Dip or Chew Tobacco: No Hx Alcohol Use: No Hx Substance Use: No substance use type: does not use Review of Systems Pt denies any recent chest pain, shortness of breath, palpitations, cough, fev er, URI, or uncontrolled acid reflux. Physical Exam Vital Signs BP: 138/89 P: 81bpm SPO2: 95% RA T: 98.3 F R: 16 Constitutional + morbidly obese ENMT Mouth: no dental restorations, no chipped teeth and no loose teeth Thyromental Distance: > or= 3.5 Finger Breadths Mallampati Class: II Neck + thick neck; neck extension not limited Respiratory normal respiratory effort, lungs clear to auscultation Cardiovascular Rate/Rhythm: regular rate and regular rhythm Heart Sounds: no murmur Testing Laboratory Results 04/29/20 10:40 04/29/20 10:40 PT 10.1 Seconds (9.0-12.0) 04/29/20 10:40 INR 1.0 (0.9-1.1) 04/29/20 10:40 APTT 24.8 Seconds (21.0-31.0) 04/29/20 10:40 Urine Color Yellow 04/29/20 10:40 Urine Appearance Clear (Clear) 04/29/20 10:40 Urine pH 5.0 (4.5-7.5) 04/29/20 10:40 Ur Specific [place] 1.016 (1.000-1.030) 04/29/20 10:40 Urine Protein Negative (Negative) 04/29/20 10:40 Urine Glucose (UA) Negative (Negative) 04/29/20 10:40 Urine Ketones Negative (Negative) 04/29/20 10:40 Urine Nitrite Negative (Negative) 04/29/20 10:40 Ur Leukocyte Esterase Negative (Negative) 04/29/20 10:40 Blood Type A Positive 04/29/20 10:40 Antibody Screen NEGATIVE 04/29/20 10:40 Electrocardiogram Date: 10/06/19 Findings: + NSR @ (82bpm) NSTWA. Chest X-Ray Date: 02/16/20 Findings: + NAD Stress Test Date: 10/17/19 Type: exercise Negative exercise stress echocardiogram for ischemia at 87% MPHR. Baseline echocardiogram notes normal LV function.
[2020-04-29 11:09] LABS: Basophils # (auto) 0.03 K/uL (0-0.2); Basophils % (auto) 0.4 %; Eosinophils # (auto) 0.14 K/uL (0-0.5); Hematocrit (blood only) 43.9 % (42-52); Hemoglobin 15.2 g/dL (14.0-18.0); Immature Granulocytes # (auto) 0.02 K/uL (0.00-0.02); Immature Granulocytes % (auto) 0.3 %; Lymphocytes # (auto) 1.61 K/uL (1.2-3.4); Lymphocytes % (auto) 22.6 %; Mean Corpuscular Hemoglobin 30.3 pg (25-34); Mean Corpuscular Hgb Conc 34.6 g/dL (32-36); Mean Corpuscular Volume 87.6 fL (80-100); Mean Platelet Volume 11.5 fL (7.4-10.4); Monocytes # (auto) 0.75 K/uL (0.11-0.59); Monocytes % (auto) 10.5 %; Neutrophils # (auto) 4.58 K/uL (1.4-6.5); Neutrophils % (auto) 64.2 %; Platelet Count 230 K/uL (130-400); RDW Coefficient of Variation 13.3 % (11.5-14.5); RDW Standard Deviation 42.4 fL (36.4-46.3); Red Blood Count 5.01 M/uL (4.7-6.1); White Blood Count 7.13 K/uL (4.8-10.8)
[2020-04-29 11:17] LABS: Appearance Urine Clear (Clear); Bilirubin Urine Negative (Negative); Blood Urine Negative (Negative); Color Urine Yellow; Glucose Urine UA Negative (Negative); Ketones Urine Negative (Negative); Leukocyte Esterase Urine Negative (Negative); Nitrite Urine Negative (Negative); Protein Urine Negative (Negative); Specific Gravity Urine 1.016 (1.000-1.030); Urobilinogen Urine Negative (Negative)
[2020-04-29 11:19] LABS: Partial Thromboplastin Ratio 0.9; Partial Thromboplastin Time 24.8 Seconds (21.0-31.0); Prothrombin Time 10.1 Seconds (9.0-12.0)
[2020-04-29 11:29] LABS: BUN Creatinine Ratio 9.6 (10-20); Creatinine Clr Calc Pharmacy 100.9 ml/min; Est GFR (African American) 74.5; Est GFR (Non-African American) 64.2; Potassium 3.9 mmol/L (3.5-5.1)
[~2020-05-10 08:34] MED LIST: ACETAMINOPHEN 500 MG TAB PO SCH; CeleBREX 200 MG CAP PO SCH; GABAPENTIN 900 MG DOSE PO SCH; LR 15ML/HR IV SCH
[2020-05-10] MEDS ORDERED: fentaNYL citrate 100 MCG/2 ML VIAL ONE ×2 (09:32→11:29)
[2020-05-10] MEDS ORDERED: PROPOFOL IV EMULSION 10 MG/ML 20 ML VIAL IV ONE (09:32)
[2020-05-10] MEDS ORDERED: LIDOCAINE HCL 2% 2 ML VIAL/AMP(20MG/ML) INFIL ONE (09:32)
[2020-05-10] MEDS ORDERED: SUCCINYLCHOLINE 100MG/5ML SYR IV ONE ×2 (09:32→11:26)
[2020-05-10] MEDS ORDERED: ROCURONIUM BROMIDE 10 MG/ML 5 ML VIAL IV ONE ×4 (09:32→11:26)
[2020-05-10] MEDS ORDERED: MIDAZOLAM HCL 1 MG/ML 2ML VIAL ONE (09:32)
[2020-05-10] MEDS ORDERED: ONDANSETRON INJ 2 MG/ML 2 ML VIAL ONE (09:32)
[2020-05-10] MEDS ORDERED: DEXAMETHASONE SOD INJ 4 MG/ML VIAL ONE (09:32)
--- NOTE | 2020-05-10 10:08 | History & Physical Bridge Note ---
Date of Service May 10, 2020 History & Physical Bridge Note I have examined the patient, reviewed the History & Physical and in the interval since the performance of the History & Physical I have noted the following changes of clinical significance: no changes noted
--- NOTE | 2020-05-10 10:10 | History & Physical Report ---
Date of Service May 10, 2020 Assessment & Plan (1) Neurogenic claudication due to lumbar spinal stenosis: Admission and Anticipated Discharge Date Admission Date: L5-S1 decompression fusion History of Present Illness Chief Complaint: Back and leg pain Primary Care Provider: Christel Ying DO This is a 54-year-old male who presents with car persistent back and leg pain. After failing course of nonoperative care is here for surgical invention. Allergies Allergy/AdvReac Type Severity Reaction Status Date / Time lisinopril AdvReac Intermediate Cough Verified 05/10/20 09:05 Home Medications Medication Instructions Recorded Confirmed Type multivitamin 1 tab PO QAM 04/16/18 05/10/20 History betamethasone dipropionate 0.05 % 1 appln TOP DAILY PRN #45 gm 09/20/18 05/10/20 Rx topical cream cholecalciferol (vitamin D3) 50 4,000 unit PO QAM #60 cap 10/01/18 05/10/20 Rx mcg (2,000 unit) capsule losartan 100 mg tablet 100 mg PO DAILY #90 tab 06/16/19 05/10/20 Rx hydrochlorothiazide 50 mg tablet 50 mg PO DAILY #90 tab 12/25/19 05/10/20 Rx aspirin 81 mg PO QAM 02/11/20 05/10/20 History omeprazole 40 mg capsule,delayed 40 mg PO DAILY #90 cap 02/23/20 05/10/20 Rx release potassium chloride 20 mEq oral 20 meq PO DAILY #30 ea 03/09/20 05/10/20 Rx packet tamsulosin 0.4 mg capsule 0.4 mg PO DAILY #90 cap 04/13/20 05/10/20 Rx amlodipine 5 mg tablet 5 mg PO DAILY #30 tab 05/07/20 05/10/20 Rx Past Med/Surg History Medical History Eczema GERD (gastroesophageal reflux disease) Herniated disc History of COVID-19 History of kidney stones HTN (hypertension) Impaired fasting glucose Lumbar degenerative disc disease Morbid obesity Osteoarthritis Surgical History History of colonoscopy History of cystoscopy History of lithotripsy Lump [place] teeth removed Family History Father Heart disease Kidney stones Myocardial infarction, Onset Age: 76 Mother Hypertension Other Family history non-contributory No family history of adverse response to anesthesia Social History Smoking Status: Never smoker Second Hand Exposure: Yes ( A CHILD); Do You Dip or Chew Tobacco: No; Hx Alcohol Use: No Hx Substance Use: No Preferred Language: Romansh Communication Ability: Effective Visual Impairment: No Limitations Hearing Ability: Normal Wired Sweatband Cutter Required: No Beliefs That Will Affect Care: None Current Living Situation: Spouse Feels Safe at Home: Yes Safety Concerns: Feels Safe At This Time Dental Care, Regularly: Yes Physical Activity Frequency: 1-2 Times per Week Seatbelt Use: always Sunscreen Use: Yes Assistive Devices: Glasses Physical Exam Physical Exam: Patient is alert and oriented Heart regular in rhythm Lungs clear to auscultation Results & Data ([facility]) Vital Signs (Past 12 Hours) Vital Signs Temp Pulse Resp BP Pulse Ox 05/10/20 09:09 36.8 C 104 H 20 114/85 96
[2020-05-10] MEDS ORDERED: BUPIVACAINE/EPINEPHRINE 0.5% MPF 1:200,000 30 ML VIAL ONE (10:22)
[2020-05-10] MEDS ORDERED: BACITRACIN INJ 50,000 UNIT VIAL ONE (10:22)
[2020-05-10] MEDS ORDERED: fentaNYL citrate 100 MCG/2 ML VIAL IV PRN (10:32)
[2020-05-10] MEDS ORDERED: ONDANSETRON INJ 2 MG/ML 2 ML VIAL IV PRN ×2 (10:32→13:46)
[2020-05-10] MEDS ORDERED: PROMETHAZINE HCL 6.25 MG in SODIUM CHLORIDE 0.9% 50 ML IV PRN (10:32)
[2020-05-10] MEDS ORDERED: ATROPINE SULFATE 0.1 MG/ML 10ML SYR IV PRN (10:32)
[2020-05-10] MEDS ORDERED: ePHEDrine sulfate 50 MG/ML AMP IV PRN (10:32)
[2020-05-10] MEDS ORDERED: PHENYLEPHRINE 100MCG/ML 5ML SYR ONE (11:26)
[2020-05-10] MEDS ORDERED: NEOSTIGMINE METHYLSULFATE 1 MG/ML 10ML VIAL ONE (11:26)
[2020-05-10] MEDS ORDERED: GLYCOPYRROLATE 0.2 MG/ML VIAL ONE (11:26)
[2020-05-10] MEDS ORDERED: HYDROmorphone INJ 2 MG/ML SYR/VIAL ONE (12:14)
[2020-05-10] MEDS ORDERED: FLOSEAL HEMOSTATIC MATRIX 10ML TOP ONE (12:18)
--- NOTE | 2020-05-10 12:25 | Operative Report ---
Post Operative Report Pre & Post Diagnosis Operation Date: 05/10/20 10:05 Pre-Op Diagnosis: Lumbar spondylolisthesis L5-S1 with radiculopathy Morbid obesity Post-Op Diagnosis: Same I identified the patient and participated in the time-out.: Yes Procedure Operation Date: 05/10/20 10:05 Actual Procedures #1 lumbar compression with bilateral medial facetectomies and foraminotomies L4- 5 L5-S1. #2 posterior spinal fusion L5-S1. #3 placement posterior instrumentation L5-S1 per #4 interbody fusion L5-S1. #5 placement of peek cage 11 x 26 mm in the size x2 at L5-S1. #6 placement locally harvested morselized autograft in the posterior gutters. #7 placement infuse collagen sponge, master graft in the posterior lateral gutters and osteopenic body space. Surgeon Negro Browning, Sales Planning Manager Teresa Griffin Estimated Blood Loss 100 Findings See Below The patient is 5 foot 10 inches tall weighing 156 kg with a BMI in excess of 49. The patient's body habitus did create significant technical difficulty requiring her deepest retractors longus instruments in order to perform his procedure. This had at least 50% increase to the operative time. Specimens None Indications This is a 54-year-old male presents with above-mentioned diagnosis after failing course of nonoperative care is here for the above-mentioned procedure. Description of Procedure Patient was met with identified informed consent obtained. Patient was then taken to the operative suite underwent ablation placed in a prone position the Raul table on top Angel frame. All bony prominences well-padded eyes inspected to ensure no external pressure placed upon the. This point the lumbar spine was prepped and draped in a sterile fashion. Sharp dissection with the assistance of Bovie cartilage form down to and exposing the lamina and transverse processes of L5 and the sacral ala bilaterally. Obvious bilateral pars defect noted. From a caudal cephalad fashion complete laminectomy L5 was performed including pressure laminectomy of L4. I performed bilateral medial facetectomies and foraminotomies addressing severe stenosis. Pedicle screws were then placed in L5 and S1 levels bilaterally with assistance of fluoroscopy and the proper sized nisreen placed. By way of a transforaminal approach on the right discectomy was performed endplates curetted to subcortically bone and an 11 x 26 mm peek cage filled with osteobone graft tapped in position. I then proceeded to the left transforaminal region. Again remaining the disc removed and here an 11 x 26 mm peek cage with osteobone graft tapped in position. The rods were then locked into final position bilaterally. The transverse processes of L5 and the sacral ala burred to subcortical bleeding bone. Infuse collagen sponge master graft look autograft was placed in posterior gutters. 15 round ALYSA drain inserted. The incision was then closed with 1 Vicryl to fascia 2-0 Vicryl subcutaneously and 4 Monocryl for final skin closure. Steri-Strip sterile dressings placed. Patient waken taken to PACU stable condition. Please note spinal cord monitoring was utilized at the procedure no changes noted. Lastly Teresa Griffin was present at the entire procedure involved the patient positioning complex portions of the surgery and final skin closure. I attest to the content of the Intraoperative Record and any orders documented therein. Any exceptions are noted below.
--- NOTE | 2020-05-10 12:33 | Fluoroscopy Report ---
FL lumbar spine 2-3V CLINICAL HISTORY: L5-S1 DECOMPRESSION AND FUSION COMPARISON STUDY: X-ray study dated October 31, 2019 FLUOROSCOPY TIME: 27 seconds. NUMBER OF FLUOROSCOPIC IMAGES: 2 FINDINGS: 2 intraoperative fluoroscopic spot images reveal postsurgical changes of an L5-S1 discectom y and interbody fusion. There is posterior pedicle screw fixation. There is a grade 1 spondylolisthes is of L5 on S1. IMPRESSION: Intraoperative fluoroscopic spot images demonstrating evidence of a L5-S1 spinal decompr ession and fusion ACT 112: Negative or not required by law. Electronically signed by: Nicolás Latham M.D. 05/10/2020 12:31 PM
--- NOTE | 2020-05-10 13:13 | Anesthesiology Progress Note ---
Date of Service May 10, 2020 Anesthesia Post Procedure Vital Signs Vital Signs: Temp Pulse Pulse Resp BP Pulse Ox 05/10/20 13:10 76 14 133/84 95 05/10/20 13:00 77 13 130/92 96 05/10/20 12:50 74 16 140/85 98 05/10/20 12:42 36.3 C L 80 15 135/86 96 05/10/20 09:09 36.8 C 104 H 20 114/85 96 Pain Intensity Lower Back: Pain Intensity: 2 Transfer of Care Handoff Completed per policy Notes Mental Status: alert / awake / arousable Patient Amnestic to Procedure: Yes Nausea / Vomiting: adequately controlled Pain: adequately controlled Airway Patency, RR, SpO2: stable & adequate BP & HR: stable & adequate Hydration State: stable & adequate Anesthetic Complications: no major complications apparent
[2020-05-10] MEDS ORDERED: hydrOXYzine HCl 25 MG TAB PO PRN (13:46)
[2020-05-10] MEDS ORDERED: ALUMINUM/MAGNESIUM SUSP 30 ML UDC PO PRN (13:46)
[2020-05-10] MEDS ORDERED: DO NOT ADMINISTER PNEUMOCOCCAL VACCINE PRN (13:46)
[2020-05-10] MEDS ORDERED: PROMETHAZINE HCL 12.5 MG in SODIUM CHLORIDE 0.9% 50 ML IV PRN (13:46)
[2020-05-10] MEDS ORDERED: DO NOT ADMINISTER FLU VACCINE PRN (13:46)
[2020-05-10] MEDS ORDERED: FAMOTIDINE 20 MG TAB PO PRN (13:46)
[2020-05-10] MEDS ORDERED: oxyCODONE HCL IR 5 MG TAB (IMMEDIATE RELEASE) PO PRN (13:46)
[2020-05-10] MEDS ORDERED: METOCLOPRAMIDE HCL INJ 5 MG/ML 2 ML VIAL IV PRN (13:46)
[2020-05-10] MEDS ORDERED: LORazepam 0.5 MG TAB PO PRN (13:46)
[2020-05-10] MEDS ORDERED: ONDANSETRON 4 MG OD TAB PO PRN (13:46)
[2020-05-10] MEDS ORDERED: ACETAMINOPHEN 500 MG TAB PO PRN (13:46)
[2020-05-10] MEDS ORDERED: NALOXONE HCL 0.4 MG/1 ML VIAL/CARP IV PRN (13:46)
[2020-05-10] MEDS ORDERED: LORazepam 0.5 MG/1 ML VIAL IV PRN (13:46)
[2020-05-10] MEDS ORDERED: HYDROmorphone INJ 1 MG/ML SYRINGE IV PRN (13:46)
[2020-05-10] MEDS ORDERED: MAGNESIUM HYDROXIDE SUSP 30 ML UDC PO PRN (13:46)
[2020-05-10] MEDS ORDERED: diphenhydrAMINE Capsule 25 MG CAP PO PRN (13:46)
[2020-05-10] MEDS ORDERED: ACETAMINOPHEN 1,000 MG/100 ML VIAL IV PRN (13:46)
[2020-05-10] MEDS ORDERED: SOD PHOSPHATE/SOD BIPHOSPHATE ENEMA 132 ML BTL PR PRN (13:46)
[2020-05-10] MEDS ORDERED: BETAMETHASONE DIP AUG (DIPROLENE) 0.05% CR 15 GM TUBE EXT PRN (13:57)
[2020-05-10] MEDS: LACTATED RINGER'S 1,000 ML IV SCH ×2 (14:24→21:02)
[2020-05-10] MEDS: KETOROLAC 30 MG/ML VIAL IV SCH ×2 (14:24→21:02)
--- NOTE | 2020-05-10 15:08 | Hospitalist Consultation ---
Date of Consultation May 10, 2020 Assessment & Plan (1) Neurogenic claudication due to lumbar spinal stenosis: S/p lumbar decompression with posterior spinal fusion with instrumentation and interbody fusion L5-S1 POD #[address] Browning (2) HTN (hypertension): Blood pressure appears well controlled on current medications. Continue amlodipine 5 mg p.o. daily, hydrochlorothiazide 50 mg p.o. daily, losartan 100 mg p.o. daily (3) GERD (gastroesophageal reflux disease): Switch omeprazole to pantoprazole per hospital formulary (4) Nephrolithiasis: History of such. Continue tamsulosin 0.4 mg p.o. daily History of Present Illness Attending Physician: Negro Browning, DO History of Present Illness John Carlin is a 54 year old POD #0 from lumbar decompression surgery. He reports back pain symptoms since October 29 after lifting firewood. Doing well postoperatively with no acute complaints. He does report recently started on amlodipine for hypertension as an outpatient. Otherwise chronic medication stable. No acute medical complaints. Allergies Allergy/AdvReac Type Severity Reaction Status Date / Time lisinopril AdvReac Intermediate Cough Verified 05/10/20 09:05 Home Medications Medication Instructions Recorded Confirmed Type multivitamin 1 tab PO QAM 04/16/18 05/10/20 History betamethasone dipropionate 0.05 % 1 appln TOP DAILY PRN #45 gm 09/20/18 05/10/20 Rx topical cream cholecalciferol (vitamin D3) 50 4,000 unit PO QAM #60 cap 10/01/18 05/10/20 Rx mcg (2,000 unit) capsule losartan 100 mg tablet 100 mg PO DAILY #90 tab 06/16/19 05/10/20 Rx hydrochlorothiazide 50 mg tablet 50 mg PO DAILY #90 tab 12/25/19 05/10/20 Rx aspirin 81 mg PO QAM 02/11/20 05/10/20 History omeprazole 40 mg capsule,delayed 40 mg PO DAILY #90 cap 02/23/20 05/10/20 Rx release potassium chloride 20 mEq oral 20 meq PO DAILY #30 ea 03/09/20 05/10/20 Rx packet tamsulosin 0.4 mg capsule 0.4 mg PO DAILY #90 cap 04/13/20 05/10/20 Rx amlodipine 5 mg tablet 5 mg PO DAILY #30 tab 05/07/20 05/10/20 Rx oxycodone 5 mg PO Q6H PRN #30 tab 05/11/20 Rx tramadol 50 mg PO Q6H PRN #30 tab 05/11/20 Rx Patient History Medical History Eczema GERD (gastroesophageal reflux disease) Herniated disc History of COVID-19 History of kidney stones HTN (hypertension) Impaired fasting glucose Lumbar degenerative disc disease Morbid obesity Osteoarthritis Surgical History History of colonoscopy History of cystoscopy History of lithotripsy [place] teeth removed Family History Father Heart disease Kidney stones Myocardial infarction, Onset Age: 76 Mother Hypertension Other Family history non-contributory No family history of adverse response to anesthesia Social History Smoking Status: Never smoker Second Hand Exposure: Yes ( A CHILD); Do You Dip or Chew Tobacco: No; Hx Alcohol Use: No Hx Substance Use: No Preferred Language: Malian Communication Ability: Effective Visual Impairment: No Limitations Hearing Ability: Normal Personal Vehicle Advisor Required: No Beliefs That Will Affect Care: None marital status: Current Living Situation: Spouse Feels Safe at Home: Yes Safety Concerns: Feels Safe At This Time Dental Care, Regularly: Yes Physical Activity Frequency: 1-2 Times per Week Seatbelt Use: always Sunscreen Use: Yes Assistive Devices: Glasses and Walker Review of Systems Review of Systems: All systems reviewed & are unremarkable except as noted in HPI & below Physical Exam Constitutional: well developed and well nourished; no acute distress Eyes: + anicteric sclerae; pupils not irregular ENMT: external ear and nose normal, oropharynx normal Respiratory: normal respiratory effort, lungs clear to auscultation Cardiovascular: RRR, no murmur, no edema Gastrointestinal (Abdomen): normal bowel sounds, soft, nontender, no hepatosplenomegaly Skin: no rashes, warm and dry Neurologic: awake; not confused Results & Data Results & Data ([facility]) Vital Signs (Past 12 Hours) Vital Signs Temp Pulse Pulse Resp BP Pulse Ox 05/10/20 14:34 36.4 C L 82 18 144/94 H 93 05/10/20 14:12 89 16 125/81 93 05/10/20 13:40 36.5 C 81 16 134/83 97 05/10/20 13:20 36.5 C 80 12 121/82 95 05/10/20 13:10 76 14 133/84 95 05/10/20 13:00 77 13 130/92 96 05/10/20 12:50 74 16 140/85 98 05/10/20 12:42 36.3 C L 80 15 135/86 96 05/10/20 09:09 36.8 C 104 H 20 114/85 96 PG Care Time/CCT Total # of Minutes Spent Total Time Spent with Patient: Total time spent is greater than 50% in customer solutions coordinator rdination of care (as documented) at patient's floor/unit and/or counseling patient: Coding Level of Care Code 51597 Inpt Consult Level 3 Diagnoses Neurogenic claudication due to lumbar spinal stenosis M48.062 HTN (hypertension) I10 Hypertension type: essential hypertension GERD (gastroesophageal reflux disease) K21.9 Nephrolithiasis N20.0 (1) HTN (hypertension) Hypertension type: essential hypertension Qualified Code(s): I10 - Essential (primary) hypertension
[2020-05-10] MEDS: ceFAZolin 2000MG 2,000 MG/15 ML SYR IV SCH (18:03)
[2020-05-10] MEDS: DOCUSATE SODIUM/SENNA 50/8.6MG TAB PO SCH (21:03)
[2020-05-11] MEDS: KETOROLAC 30 MG/ML VIAL IV SCH ×2 (01:50→07:59)
[2020-05-11] MEDS: ceFAZolin 2000MG 2,000 MG/15 ML SYR IV SCH (01:51)
[2020-05-11] MEDS: LACTATED RINGER'S 1,000 ML IV SCH (03:36)
[2020-05-11 06:39] LABS: Hematocrit (blood only) 38.3 % (42-52); Hemoglobin 13.1 g/dL (14.0-18.0); Immature Granulocytes # (auto) 0.04 K/uL (0.00-0.02); Immature Granulocytes % (auto) 0.2 %; Lymphocytes # (auto) 1.19 K/uL (1.2-3.4); Lymphocytes % (auto) 7.3 %; Mean Corpuscular Hgb Conc 34.2 g/dL (32-36); Mean Corpuscular Volume 87.8 fL (80-100); Mean Platelet Volume 10.9 fL (7.4-10.4); Monocytes # (auto) 1.41 K/uL (0.11-0.59); Monocytes % (auto) 8.6 %; Neutrophils # (auto) 13.73 K/uL (1.4-6.5); Neutrophils % (auto) 83.9 %; Platelet Count 187 K/uL (130-400); RDW Coefficient of Variation 13.4 % (11.5-14.5); Red Blood Count 4.36 M/uL (4.7-6.1); White Blood Count 16.37 K/uL (4.8-10.8)
[2020-05-11 07:11] LABS: BUN Creatinine Ratio 16.1 (10-20); Calcium 8.8 mg/dl (8.5-10.1); Creatinine Clr Calc Pharmacy 87.5 ml/min; Est GFR (African American) 62.8; Est GFR (Non-African American) 54.2
[2020-05-11] MEDS: hydroCHLOROthiazide 25 MG TAB PO SCH (08:01)
[2020-05-11] MEDS: TAMSULOSIN HCL 0.4 MG CAP PO SCH (08:01)
[2020-05-11] MEDS: ASPIRIN 81 MG ECTAB PO SCH (08:01)
[2020-05-11] MEDS: CHOLECALCIFEROL 1,000 UNITS 25 MCG TAB PO SCH (08:02)
[2020-05-11] MEDS: MULTIVITAMIN TAB PO SCH (08:02)
[2020-05-11] MEDS: LOSARTAN POTASSIUM 50 MG TAB PO SCH (08:02)
[2020-05-11] MEDS: PANTOprazole 40 MG TAB PO SCH (08:02)
[2020-05-11] MEDS ORDERED: POTASSIUM CHLORIDE PWD 20 MEQ PACK PO SCH (09:00)
[2020-05-11] MEDS ORDERED: amLODIPine BESYLATE 5 MG TAB PO SCH (09:00)
--- NOTE | 2020-05-11 09:34 | Hospitalist Progress Note ---
Date of Service May 11, 2020 Assessment & Plan (1) Neurogenic claudication due to lumbar spinal stenosis: 3-1 lumbar decompression with posterior spinal fusion with instrumentation and interbody fusion L5-S1 Pain management per Dr. Browning (2) HTN (hypertension): Blood pressure appears well controlled on current medications. Continue amlodipine 5 mg p.o. daily, hydrochlorothiazide 50 mg p.o. daily, losartan 100 mg p.o. daily 3-2 SBP 171, likely high due to pain and he is due for BP medications increase norvasc to 10 (3) GERD (gastroesophageal reflux disease): Switch omeprazole to pantoprazole per hospital formulary (4) Nephrolithiasis: Admission and Anticipated Discharge Date Admission Date: May 10, 2020 Subjective Having minimal pain in back Sciatic pain in legs has improved drastically Patient tolerated diet Did not have a BM yet BP running high recently -- one of his medications was just started last week, though unsure which one. Denies chest pain, headache, sob Review of Systems Constitutional: no fever, no chills, no fatigue, no weakness, no anorexia, no weight loss and no weight gain Ear, Nose, Mouth, Throat: no nasal congestion, no sore throat and no dysphagia Respiratory: no cough and no dyspnea Cardiovascular: no chest pain, no dyspnea on exertion, no orthopnea and no palpitations Gastrointestinal: no abdominal pain, no nausea, no vomiting, no hematemesis, no dysphagia, no constipation, no diarrhea/loose stools, no blood in stools and no melena Genitourinary: no dysuria and no urinary frequency Musculoskeletal: no back pain, no joint pain, no myalgia and no muscle weakness Integumentary: no rash, no lesions, no skin ulcer, no erythema, no dry skin and no pruritus Neurologic: no falls, no localized weakness, no generalized weakness, no numbness, no paresthesia, no tremor(s) and no headache(s) Psychiatric: no depression, no suicidal ideation, no homicidal ideation and no anxiety Endocrine: no cold intolerance and no heat intolerance Hematologic / Lymphatic: no easy bleeding and no easy bruising Physical Exam Constitutional: well developed and well nourished; no acute distress Eyes: PERRL, conjunctivae normal, anicteric sclerae ENMT: Mouth: oral mucous membranes not dry Respiratory: normal respiratory effort; no respiratory distress and no labored breathing Auscultation: lungs clear to auscultation bilaterally; no crackles, no rales, no rhonchi and no wheezes Cardiovascular: Rate/Rhythm: regular rate and regular rhythm Heart Sounds: no murmur and no cardiac rub Vessels: normal peripheral pulses and radial pulses present; no JVD Extremities: no edema Gastrointestinal (Abdomen): Inspection/Auscultation: abdomen normal to inspection and normal bowel sounds; abdomen not distended Percussion/Palpation: abdomen soft; abdomen nontender, no guarding, abdomen not rigid and no hepatosplenomegaly Musculoskeletal: Head/Neck/Chest: normocephalic and head atraumatic Spine: no cervical spinal tenderness, no cervical muscular tenderness, no thoracic spinal tenderness and no lumbar spinal tenderness Skin: no rashes, warm and dry Neurologic: CN's II-XI intact bilaterally and moves all extremities Motor/Sensory: no tremor and no sensory deficit Psychiatric: Orientation: alert, oriented to person, oriented to place and oriented to time Apperance: appropriately groomed; not disheveled Affect: euthymic affect; no anxious affect and no tearful affect Genitourinary: no Gutierrez catheter Results & Data Results & Data ([facility]) Vital Signs (Past 12 Hours) Vital Signs Temp Pulse Resp BP Pulse Ox 05/11/20 07:46 36.8 C 88 18 171/67 H 95 05/11/20 03:09 36.6 C 98 H 18 132/81 93 05/10/20 22:11 97 05/10/20 22:09 36.7 C 102 H 18 124/80 95 Laboratory Results Abnormal lab results 05/11/20 05/11/20 Range/Units 06:07 06:07 WBC 16.37 H (4.8-10.8) K/uL RBC 4.36 L (4.7-6.1) M/uL Hgb 13.1 L (14.0-18.0) g/dL Hct 38.3 L (42-52) % MPV 10.9 H (7.4-10.4) fL Neut # (Auto) 13.73 H (1.4-6.5) K/uL Lymph # (Auto) 1.19 L (1.2-3.4) K/uL [place] # (Auto) 1.41 H (0.11-0.59) K/uL Immature Gran # (Auto) 0.04 H (0.00-0.02) K/uL BUN 23 H (7-18) mg/dl Creatinine 1.45 H (0.6-1.4) mg/dl Glucose 148 H (70-99) mg/dl Medications Administered Current Inpatient Medications Acetaminophen (Acetaminophen 500 Mg Tab) 1,000 mg PO Q8H PRN PRN Reason: MILD Pain Scale 1,2,3 & Pre PT Stop: 06/09/20 13:45 Al Hydrox/Mg Hydrox/Simethicone (Aluminum/Magnesium Susp 30 Ml Udc) 30 ml PO Q6H PRN PRN Reason: Dyspepsia Stop: 06/09/20 13:45 Amlodipine Besylate (Amlodipine Besylate 5 Mg Tab) 5 mg PO DAILY AIDAN Stop: 06/10/20 08:59 Last Admin: 05/11/20 08:01 Dose: 5 mg Documented by: Aspirin (Aspirin 81 Mg Ectab) 81 mg PO QAM AIDAN Stop: 06/10/20 08:59 Last Admin: 05/11/20 08:01 Dose: 81 mg Documented by: Betamethasone Dipropion Augmented (Betamethasone Dip Aug (Diprolene) 0.05% Cr 15 Gm Tube) 1 appln EXT DAILY PRN PRN Reason: skin irritation Stop: 06/09/20 13:56 Bisacodyl (Bisacodyl 10 Mg Supp) 10 mg [place] DAILY PRN PRN Reason: Constipation Stop: 06/11/20 12:24 Diphenhydramine HCl (Diphenhydramine Capsule 25 Mg Cap) 25 mg PO Q6H PRN PRN Reason: Allergic Rhinitis/Insomnia Stop: 06/09/20 13:45 Famotidine (Famotidine 20 Mg Tab) 20 mg PO Q12H PRN PRN Reason: Dyspepsia Stop: 06/09/20 13:45 Hydrochlorothiazide (Hydrochlorothiazide 25 Mg Tab) 50 mg PO DAILY ON LICENSE OF [facility] Stop: 06/10/20 08:59 Last Admin: 05/11/20 08:01 Dose: 50 mg Documented by: Hydromorphone HCl (Hydromorphone Inj 0.5 Mg/0.5 Ml Syr) 0.5 mg IV Q3H PRN PRN Reason: MOD pain (scale 4-6) & Pre PT Stop: 05/24/20 13:45 Hydromorphone HCl (Hydromorphone Inj 1 Mg/Ml Syringe) 1 mg IV Q3H PRN PRN Reason: severe pain (scale 7-10) Stop: 05/24/20 13:45 Hydroxyzine HCl (Hydroxyzine Hcl 25 Mg Tab) 25 mg PO Q8H PRN PRN Reason: Anxiety Stop: 06/09/20 13:45 Acetaminophen (Ofirmev) 1,000 mg in 100 mls @ 400 mls/hr IV Q8H PRN PRN Reason: Pain Rating 1-3 & Pre PT Stop: 05/13/20 13:45 Lorazepam (Ativan) 0.5 mg in 1 mls @ 1 mls/min IV Q8H PRN PRN Reason: Sedation/Anxiety Stop: 06/09/20 13:45 Promethazine HCl 12.5 mg/ (Sodium Chloride) 50.5 mls @ 202 mls/hr IV Q6H PRN PRN Reason: Nausea &/or Vomiting Stop: 06/09/20 13:45 Influenza Virus Vaccine Quadrival (Do Not Administer Flu Vaccine) 1 ea N/A PRN PRN PRN Reason: Notification Stop: 06/09/20 13:45 Lorazepam (Lorazepam 0.5 Mg Tab) 0.5 mg PO Q8H PRN PRN Reason: sedation/anxiety Stop: 06/09/20 13:45 Losartan Potassium (Losartan Potassium 50 Mg Tab) 100 mg PO DAILY AIDAN Stop: 06/10/20 08:59 Last Admin: 05/11/20 08:02 Dose: 100 mg Documented by: Magnesium Hydroxide (Magnesium Hydroxide Susp 30 Ml Udc) 30 ml PO Q24H PRN PRN Reason: Constipation Stop: 06/09/20 13:45 Metoclopramide HCl (Metoclopramide Hcl Inj 5 Mg/Ml 2 Ml Vial) 10 mg IV Q6H PRN PRN Reason: Nausea &/or Vomiting Stop: 06/09/20 13:45 Multivitamins (Multivitamin Tab) 1 tab PO QAM AIDAN Stop: 06/10/20 08:59 Last Admin: 05/11/20 08:02 Dose: 1 tab Documented by: Naloxone HCl (Naloxone Hcl 0.4 Mg/1 Ml Vial/Carp) 0.1 mg IV Q5M PRN PRN Reason: Oversedation/respiratory dep Stop: 06/09/20 13:45 Ondansetron HCl (Ondansetron Inj 2 Mg/Ml 2 Ml Vial) 4 mg IV Q6H PRN PRN Reason: Nausea &/or Vomiting Stop: 06/09/20 13:45 Last Admin: 05/10/20 18:35 Dose: 4 mg Documented by: Ondansetron HCl (Ondansetron 4 Mg Od Tab) 4 mg PO Q6H PRN PRN Reason: Nausea Stop: 06/09/20 13:45 Oxycodone HCl (Oxycodone Hcl Ir 5 Mg Tab (Immediate Release)) 5 - 10 mg PO Q4H PRN PRN Reason: Pain & Pre PT Stop: 05/24/20 13:45 Last Admin: 05/10/20 16:19 Dose: 5 mg Documented by: Pantoprazole Sodium (Pantoprazole 40 Mg Tab) 40 mg PO DAILY ON LICENSE OF [facility]; Protocol Stop: 06/10/20 08:59 Last Admin: 05/11/20 08:02 Dose: 40 mg Documented by: Pneumococcal Polyvalent Vaccine (Do Not Administer Pneumococcal Vaccine) 1 ea N/A PRN PRN PRN Reason: Notification Stop: 06/09/20 13:45 Polyethylene Glycol (Polyethylene (Miralax) 17 Gm Pack) 17 gm PO Q6 AIDAN Stop: 06/10/20 11:59 Potassium Chloride (Potassium Chloride Pwd 20 Meq Pack) 20 meq PO DAILY AIDAN Stop: 06/10/20 08:59 Last Admin: 05/11/20 08:01 Dose: 20 meq Documented by: Senna/Docusate Sodium (Docusate Sodium/Senna 50/8.6mg Tab) 2 tab PO HS AIDAN Stop: 06/09/20 20:59 Last Admin: 05/10/20 21:03 Dose: 2 tab Documented by: Sodium Biphosphate/Sodium Phosphate (Sod Phosphate/Sod Biphosphate Enema 132 Ml Btl) 132 ml [place] ONE PRN PRN Reason: Constipation Stop: 06/09/20 13:45 Tamsulosin HCl (Tamsulosin Hcl 0.4 Mg Cap) 0.4 mg PO DAILY AIDAN Stop: 06/10/20 08:59 Last Admin: 05/11/20 08:01 Dose: 0.4 mg Documented by: Tramadol HCl (Tramadol Hcl 50 Mg Tablet) 50 - 100 mg PO Q4H PRN PRN Reason: Moderate-Severe pain & Pre PT Stop: 06/09/20 13:45 Vitamin D (Cholecalciferol 1,000 Units 25 Mcg Tab) 4,000 units PO QAM AIDAN Stop: 06/10/20 08:59 Last Admin: 05/11/20 08:02 Dose: 4,000 units Documented by: PG Care Time/CCT Total # of Minutes Spent Total Time Spent with Patient: Total time spent is greater than 50% in coordination of care (as documented) at patient's floor/unit and/or counseling patient: Coding Level of Care Code 23935 Subseq Hosp Care Lvl 2 Diagnoses Neurogenic claudication due to lumbar spinal stenosis M48.062 HTN (hypertension) I10 Hypertension type: essential hypertension GERD (gastroesophageal reflux disease) K21.9 Nephrolithiasis N20.0 (1) HTN (hypertension) Hypertension type: essential hypertension Qualified Code(s): I10 - Essential (primary) hypertension
--- NOTE | 2020-05-11 09:51 | Orthopedic Progress Note ---
Date of Service May 11, 2020 Assessment & Plan (1) Neurogenic claudication due to lumbar spinal stenosis: Admission and Anticipated Discharge Date Admission Date: May 10, 2020 This time we will continue physical therapy monitor his ALYSA output anticipate discharge home in the next few days. Subjective Patient's back pain is controlled leg symptoms markedly improved. Physical Exam Physical Exam: On exam patient is in the chair at the bedside. Is good strength testing. Appears very comfortable. Results & Data ([facility]) Vital Signs (Past 12 Hours) Vital Signs Temp Pulse Resp BP Pulse Ox 05/11/20 07:46 36.8 C 88 18 171/67 H 95 05/11/20 03:09 36.6 C 98 H 18 132/81 93 05/10/20 22:11 97 05/10/20 22:09 36.7 C 102 H 18 124/80 95
[2020-05-11] MEDS: POLYETHYLENE (MIRALAX) 17 GM PACK PO SCH ×2 (12:03→17:41)
[2020-05-11] MEDS: traMADol HCL 50 MG TABLET PO PRN (17:43)
[2020-05-11] MEDS: DOCUSATE SODIUM/SENNA 50/8.6MG TAB PO SCH (20:10)
[2020-05-11] MEDS: CYCLOBENZAPRINE HCL 10 MG TAB PO PRN (20:12)
[2020-05-11] MEDS: HYDROmorphone INJ 0.5 MG/0.5 ML SYR IV PRN (23:24)
[2020-05-12] MEDS: POLYETHYLENE (MIRALAX) 17 GM PACK PO SCH ×5 (00:08→22:58)
[2020-05-12] MEDS: HYDROmorphone INJ 0.5 MG/0.5 ML SYR IV PRN (05:18)
[2020-05-12 06:35] LABS: Hematocrit (blood only) 38.9 % (42-52); Hemoglobin 13.2 g/dL (14.0-18.0); Mean Corpuscular Hemoglobin 30.1 pg (25-34); Mean Corpuscular Hgb Conc 33.9 g/dL (32-36); Mean Corpuscular Volume 88.6 fL (80-100); Platelet Count 164 K/uL (130-400); RDW Coefficient of Variation 13.5 % (11.5-14.5); RDW Standard Deviation 44.4 fL (36.4-46.3); Red Blood Count 4.39 M/uL (4.7-6.1); White Blood Count 10.52 K/uL (4.8-10.8)
[2020-05-12 07:08] LABS: BUN Creatinine Ratio 17.9 (10-20); Calcium 8.3 mg/dl (8.5-10.1); Creatinine Clr Calc Pharmacy 113.3 ml/min; Est GFR (African American) 85.9; Est GFR (Non-African American) 74.1; Magnesium 1.9 mg/dl (1.8-2.4); Phosphorus 3.1 mg/dl (2.5-4.9)
--- NOTE | 2020-05-12 08:42 | Hospitalist Progress Note ---
Date of Service May 12, 2020 Assessment & Plan (1) Neurogenic claudication due to lumbar spinal stenosis: 3-1 lumbar decompression with posterior spinal fusion with instrumentation and interbody fusion L5-S1 Pain management per Dr. Browning 3-3 worse pain today cont dilaudid, decadron (2) HTN (hypertension): Blood pressure appears well controlled on current medications. Continue amlodipine 5 mg p.o. daily, hydrochlorothiazide 50 mg p.o. daily, losartan 100 mg p.o. daily 3-2 SBP 171, likely high due to pain and he is due for BP medications increase norvasc to 10 3-3 SBP much better controlled ranging 120-150 (3) GERD (gastroesophageal reflux disease): Switch omeprazole to pantoprazole per hospital formulary (4) Nephrolithiasis: History of such. Continue tamsulosin 0.4 mg p.o. daily Admission and Anticipated Discharge Date Admission Date: May 10, 2020 Subjective Patient having more back pain today, severe, alleviated in part by dilaudid No leg pain Eating well Making urine Still no BM Review of Systems Constitutional: no fever, no chills, no fatigue, no weakness, no anorexia, no weight loss and no weight gain Ear, Nose, Mouth, Throat: no nasal congestion, no sore throat and no dysphagia Respiratory: no cough and no dyspnea Cardiovascular: no chest pain, no dyspnea on exertion, no orthopnea and no palpitations Gastrointestinal: no abdominal pain, no nausea, no vomiting, no hematemesis, no dysphagia, no constipation, no diarrhea/loose stools, no blood in stools and no melena Genitourinary: no dysuria and no hematuria Musculoskeletal: no back pain, no joint pain, no myalgia and no muscle weakness Integumentary: no rash, no lesions, no skin ulcer, no erythema, no dry skin and no pruritus Neurologic: no falls, no localized weakness, no generalized weakness, no numbness, no paresthesia, no tremor(s) and no headache(s) Psychiatric: no depression, no suicidal ideation, no homicidal ideation and no anxiety Endocrine: no cold intolerance and no heat intolerance Hematologic / Lymphatic: no easy bleeding and no easy bruising Physical Exam Constitutional: well developed and well nourished; no acute distress Eyes: PERRL, conjunctivae normal, anicteric sclerae ENMT: Mouth: oral mucous membranes not dry Respiratory: normal respiratory effort; no respiratory distress and no labored breathing Auscultation: lungs clear to auscultation bilaterally; no crackles, no rales, no rhonchi and no wheezes Cardiovascular: Rate/Rhythm: regular rate and regular rhythm Heart Sounds: no murmur and no cardiac rub Vessels: normal peripheral pulses and radial pulses present; no JVD Extremities: no edema Gastrointestinal (Abdomen): Inspection/Auscultation: abdomen normal to inspection and normal bowel sounds; abdomen not distended Percussion/Palpation: abdomen soft; abdomen nontender, no guarding, abdomen not rigid and no hepatosplenomegaly Musculoskeletal: Head/Neck/Chest: normocephalic and head atraumatic Spine: no cervical spinal tenderness, no cervical muscular tenderness, no thoracic spinal tenderness and no lumbar spinal tenderness Skin: no rashes, warm and dry Neurologic: CN's II-XI intact bilaterally and moves all extremities Motor/Sensory: no tremor and no sensory deficit Psychiatric: Orientation: alert, oriented to person, oriented to place and oriented to time Apperance: appropriately groomed; not disheveled Affect: euthymic affect; no anxious affect and no tearful affect Results & Data Results & Data ([facility]) Vital Signs (Past 12 Hours) Vital Signs Temp Pulse Resp BP Pulse Ox 05/12/20 08:09 36.6 C 92 H 18 121/84 94 05/11/20 22:14 36.6 C 83 18 149/76 H 94 Laboratory Results Abnormal lab results 05/12/20 05/12/20 Range/Units 06:04 06:04 RBC 4.39 L (4.7-6.1) M/uL Hgb 13.2 L (14.0-18.0) g/dL Hct 38.9 L (42-52) % MPV 11.0 H (7.4-10.4) fL BUN 20 H (7-18) mg/dl Glucose 112 H (70-99) mg/dl Calcium 8.3 L (8.5-10.1) mg/dl Medications Administered Current Inpatient Medications Acetaminophen (Acetaminophen 500 Mg Tab) 1,000 mg PO Q8H PRN PRN Reason: MILD Pain Scale 1,2,3 & Pre PT Stop: 06/09/20 13:45 Al Hydrox/Mg Hydrox/Simethicone (Aluminum/Magnesium Susp 30 Ml Udc) 30 ml PO Q6H PRN PRN Reason: Dyspepsia Stop: 06/09/20 13:45 Amlodipine Besylate (Amlodipine Besylate 5 Mg Tab) 10 mg PO DAILY [facility] Stop: 06/11/20 08:59 Last Admin: 05/12/20 08:51 Dose: 10 mg Documented by: Aspirin (Aspirin 81 Mg Ectab) 81 mg PO QAM [facility] Stop: 06/10/20 08:59 Last Admin: 05/12/20 08:50 Dose: 81 mg Documented by: Betamethasone Dipropion Augmented (Betamethasone Dip Aug (Diprolene) 0.05% Cr 15 Gm Tube) 1 appln EXT DAILY PRN PRN Reason: skin irritation Stop: 06/09/20 13:56 Bisacodyl (Bisacodyl 10 Mg Supp) 10 mg NC DAILY PRN PRN Reason: Constipation Stop: 06/11/20 12:24 Cyclobenzaprine HCl (Cyclobenzaprine Hcl 10 Mg Tab) 10 mg PO BID PRN PRN Reason: Muscle Spasm Stop: 06/10/20 20:59 Last Admin: 05/12/20 08:50 Dose: 10 mg Documented by: Diphenhydramine HCl (Diphenhydramine Capsule 25 Mg Cap) 25 mg PO Q6H PRN PRN Reason: Allergic Rhinitis/Insomnia Stop: 06/09/20 13:45 Famotidine (Famotidine 20 Mg Tab) 20 mg PO Q12H PRN PRN Reason: Dyspepsia Stop: 06/09/20 13:45 Hydrochlorothiazide (Hydrochlorothiazide 25 Mg Tab) 50 mg PO DAILY [facility] Stop: 06/10/20 08:59 Last Admin: 05/12/20 08:50 Dose: 50 mg Documented by: Hydromorphone HCl (Hydromorphone Inj 0.5 Mg/0.5 Ml Syr) 0.5 mg IV Q3H PRN PRN Reason: MOD pain (scale 4-6) & Pre PT Stop: 05/24/20 13:45 Last Admin: 05/12/20 05:18 Dose: 0.5 mg Documented by: Hydromorphone HCl (Hydromorphone Inj 1 Mg/Ml Syringe) 1 mg IV Q3H PRN PRN Reason: severe pain (scale 7-10) Stop: 05/24/20 13:45 Last Admin: 05/12/20 10:05 Dose: 1 mg Documented by: Hydroxyzine HCl (Hydroxyzine Hcl 25 Mg Tab) 25 mg PO Q8H PRN PRN Reason: Anxiety Stop: 06/09/20 13:45 Acetaminophen (Ofirmev) 1,000 mg in 100 mls @ 400 mls/hr IV Q8H PRN PRN Reason: Pain Rating 1-3 & Pre PT Stop: 05/13/20 13:45 Lorazepam (Ativan) 0.5 mg in 1 mls @ 1 mls/min IV Q8H PRN PRN Reason: Sedation/Anxiety Stop: 06/09/20 13:45 Promethazine HCl 12.5 mg/ (Sodium Chloride) 50.5 mls @ 202 mls/hr IV Q6H PRN PRN Reason: Nausea &/or Vomiting Stop: 06/09/20 13:45 Dexamethasone Sodium Phosphate (8 mg/ Syringe) 2 mls @ 1 mls/min IV DAILY [facility] Stop: 06/11/20 08:59 Last Admin: 05/12/20 10:03 Dose: 1 mls/min Documented by: Influenza Virus Vaccine Quadrival (Do Not Administer Flu Vaccine) 1 ea N/A PRN PRN PRN Reason: Notification Stop: 06/09/20 13:45 Lorazepam (Lorazepam 0.5 Mg Tab) 0.5 mg PO Q8H PRN PRN Reason: sedation/anxiety Stop: 06/09/20 13:45 Losartan Potassium (Losartan Potassium 50 Mg Tab) 100 mg PO DAILY [facility] Stop: 06/10/20 08:59 Last Admin: 05/12/20 08:50 Dose: 100 mg Documented by: Magnesium Hydroxide (Magnesium Hydroxide Susp 30 Ml Udc) 30 ml PO Q24H PRN PRN Reason: Constipation Stop: 06/09/20 13:45 Metoclopramide HCl (Metoclopramide Hcl Inj 5 Mg/Ml 2 Ml Vial) 10 mg IV Q6H PRN PRN Reason: Nausea &/or Vomiting Stop: 06/09/20 13:45 Multivitamins (Multivitamin Tab) 1 tab PO QAM [facility] Stop: 06/10/20 08:59 Last Admin: 05/12/20 08:50 Dose: 1 tab Documented by: Naloxone HCl (Naloxone Hcl 0.4 Mg/1 Ml Vial/Carp) 0.1 mg IV Q5M PRN PRN Reason: Oversedation/respiratory dep Stop: 06/09/20 13:45 Ondansetron HCl (Ondansetron Inj 2 Mg/Ml 2 Ml Vial) 4 mg IV Q6H PRN PRN Reason: Nausea &/or Vomiting Stop: 06/09/20 13:45 Last Admin: 05/10/20 18:35 Dose: 4 mg Documented by: Ondansetron HCl (Ondansetron 4 Mg Od Tab) 4 mg PO Q6H PRN PRN Reason: Nausea Stop: 06/09/20 13:45 Oxycodone HCl (Oxycodone Hcl Ir 5 Mg Tab (Immediate Release)) 5 - 10 mg PO Q4H PRN PRN Reason: Pain & Pre PT Stop: 05/24/20 13:45 Last Admin: 05/10/20 16:19 Dose: 5 mg Documented by: Pantoprazole Sodium (Pantoprazole 40 Mg Tab) 40 mg PO DAILY [facility]; Protocol Stop: 06/10/20 08:59 Last Admin: 05/12/20 08:51 Dose: 40 mg Documented by: Pneumococcal Polyvalent Vaccine (Do Not Administer Pneumococcal Vaccine) 1 ea N/A PRN PRN PRN Reason: Notification Stop: 06/09/20 13:45 Polyethylene Glycol (Polyethylene (Miralax) 17 Gm Pack) 17 gm PO Q6 [facility] Stop: 06/10/20 11:59 Last Admin: 05/12/20 12:41 Dose: Not Given Documented by: Potassium Chloride (Potassium Chloride Crtab 20 Meq Tabcr) 20 meq PO QAM [facility] Stop: 06/11/20 08:59 Last Admin: 05/12/20 10:03 Dose: 20 meq Documented by: Senna/Docusate Sodium (Docusate Sodium/Senna 50/8.6mg Tab) 2 tab PO HS [facility] Stop: 06/09/20 20:59 Last Admin: 05/11/20 20:10 Dose: 2 tab Documented by: Sodium Biphosphate/Sodium Phosphate (Sod Phosphate/Sod Biphosphate Enema 132 Ml Btl) 132 ml NC ONE PRN PRN Reason: Constipation Stop: 06/09/20 13:45 Tamsulosin HCl (Tamsulosin Hcl 0.4 Mg Cap) 0.4 mg PO DAILY [facility] Stop: 06/10/20 08:59 Last Admin: 05/12/20 08:51 Dose: 0.4 mg Documented by: Tramadol HCl (Tramadol Hcl 50 Mg Tablet) 50 - 100 mg PO Q4H PRN PRN Reason: Moderate-Severe pain & Pre PT Stop: 06/09/20 13:45 Last Admin: 05/12/20 08:50 Dose: 100 mg Documented by: Vitamin D (Cholecalciferol 1,000 Units 25 Mcg Tab) 4,000 units PO QAM [facility] Stop: 06/10/20 08:59 Last Admin: 05/12/20 08:50 Dose: 4,000 units Documented by: PG Care Time/CCT Total # of Minutes Spent Total Time Spent with Patient: Total time spent is greater than 50% in coordination of care (as documented) at patient's floor/unit and/or counseling patient: Coding Level of Care Code 24167 Subseq Hosp Care Lvl 2 Diagnoses Neurogenic claudication due to lumbar spinal stenosis M48.062 HTN (hypertension) I10 Hypertension type: essential hypertension GERD (gastroesophageal reflux disease) K21.9 Nephrolithiasis N20.0 (1) HTN (hypertension) Hypertension type: essential hypertension Qualified Code(s): I10 - Essential (primary) hypertension
[2020-05-12] MEDS: LOSARTAN POTASSIUM 50 MG TAB PO SCH (08:50)
[2020-05-12] MEDS: CHOLECALCIFEROL 1,000 UNITS 25 MCG TAB PO SCH (08:50)
[2020-05-12] MEDS: MULTIVITAMIN TAB PO SCH (08:50)
[2020-05-12] MEDS: traMADol HCL 50 MG TABLET PO PRN (08:50)
[2020-05-12] MEDS: hydroCHLOROthiazide 25 MG TAB PO SCH (08:50)
[2020-05-12] MEDS: CYCLOBENZAPRINE HCL 10 MG TAB PO PRN (08:50)
[2020-05-12] MEDS: ASPIRIN 81 MG ECTAB PO SCH (08:50)
[2020-05-12] MEDS: amLODIPine BESYLATE 5 MG TAB PO SCH (08:51)
[2020-05-12] MEDS: TAMSULOSIN HCL 0.4 MG CAP PO SCH (08:51)
[2020-05-12] MEDS: PANTOprazole 40 MG TAB PO SCH (08:51)
[2020-05-12] MEDS: POTASSIUM CHLORIDE CRTAB 20 MEQ TABCR PO SCH (10:03)
[2020-05-12] MEDS: dexAMETHasone 8 MG in SYRINGE 0 ML IV SCH (10:03)
--- NOTE | 2020-05-12 11:58 | Orthopedic Progress Note ---
Date of Service May 12, 2020 Assessment & Plan (1) Neurogenic claudication due to lumbar spinal stenosis: Admission and Anticipated Discharge Date Admission Date: May 10, 2020 We will continue to monitor his pain today. Maintain his ALYSA drain. Continue physical therapy. Hopefully discharge home tomorrow. Subjective Patient is considerable back pain today. Leg pain still improved. Physical Exam Physical Exam: Patient is in the chair at the bedside. Is good strength testing. Results & Data ([facility]) Vital Signs (Past 12 Hours) Vital Signs Temp Pulse Resp BP Pulse Ox 05/12/20 08:09 36.6 C 92 H 18 121/84 94
[2020-05-12] MEDS ORDERED: bisacodyL 10 MG SUPP PR PRN (12:25)
[2020-05-12] MEDS: DOCUSATE SODIUM/SENNA 50/8.6MG TAB PO SCH (20:19)
[2020-05-13 06:07] LABS: Hematocrit (blood only) 39.1 % (42-52); Hemoglobin 13.5 g/dL (14.0-18.0); Mean Corpuscular Hemoglobin 30.3 pg (25-34); Mean Corpuscular Hgb Conc 34.5 g/dL (32-36); Mean Corpuscular Volume 87.7 fL (80-100); Mean Platelet Volume 11.2 fL (7.4-10.4); Platelet Count 194 K/uL (130-400); RDW Coefficient of Variation 13.3 % (11.5-14.5); RDW Standard Deviation 42.5 fL (36.4-46.3); Red Blood Count 4.46 M/uL (4.7-6.1); White Blood Count 12.49 K/uL (4.8-10.8)
[2020-05-13] MEDS: POLYETHYLENE (MIRALAX) 17 GM PACK PO SCH ×2 (06:12→11:36)
[2020-05-13 06:36] LABS: BUN Creatinine Ratio 15.4 (10-20); Calcium 9.2 mg/dl (8.5-10.1); Creatinine Clr Calc Pharmacy 107.5 ml/min; Est GFR (African American) 80.6; Est GFR (Non-African American) 69.5
--- NOTE | 2020-05-13 08:29 | Discharge Summary ---
Date of Service May 13, 2020 Admission HPI Per Admitting Provider This is a 54-year-old male who presents with car persistent back and leg pain. After failing course of nonoperative care is here for surgical invention. Principal Diagnosis Lumbar spinal stenosis with radiculopathy Discharge Data Allergies Allergy/AdvReac Type Severity Reaction Status Date / Time lisinopril AdvReac Intermediate Cough Verified 05/10/20 09:05 Consultations 05/10/20 13:46 Consult Case Management - Discharge Planning Routine Consult Hospitalist Routine Procedures Performed Operation Date: 05/10/20 10:05 Actual Procedures p L5-S1 Decompression and Fusion, Spinal Cord Monitoring - Negro Browning DO Ordered Studies 05/10/20 10:05 FL fluoroscopy <1hr Routine FL lumbar spine 2-3V Routine Hospital Course (1) Neurogenic claudication due to lumbar spinal stenosis: Patient with lumbar decompression fusion tolerated so was taken to orthopedic. Labor postop day 1 is up and ambulating progressively stated #2 posterior drain with good excellent strength testing pain controlled subsequent discharge home per discharge orders instructions from the chart for further review. Total Time Total Time Spent Total Time Spent (In Minutes): 20 minutes Discharge Plan Discharge Items Patient Disposition: Home - Self-Care Reason For Visit: Thoracolumbar and Lumbosacral Intervertebral Disc Discharge Diagnosis: Lumbar spinal stenosis with radiculopathy Activity: As commented below Non-emergency contact: Primary Care Provider Call non-emergency contact if: you have any medication questions Follow-up/Referrals: Christel Ying DO [Primary Care Provider] - Diet: Regular Addtl Attending Provider Instructions: ACTIVITY RECOMMENDATIONS: SELF CARE INSTRUCTIONS AFTER THORACIC/LUMBAR FUSIONS 1. You may walk to your tolerance. It is good exercise for your legs and back. Expect some back and intermittent leg aches and pains. 2. You may perform "counter-top" level activities (make a sandwich, ragini with a project, etc.). 3. No bending or lifting of more than 10 pounds or back twisting of any nature (roll like a log when turning in bed). 4. You may ride in a car for 20-30 minutes at a time. No driving until after your first visit with your doctor. 5. Frequent changes of position and restricting sitting to 30 minutes at a time will help limit the amount of back spasms and stiffness you may experience. 6. You may discontinue the use of ambulatory aids (cane, crutches, etc.) once your strength and confidence allow. 7. You may servicenow administrator the shower and let water strike your incision when you arrive home at least once daily. Do not take a tub bath, sit in a hot tub or go into a swimming pool until after your first recheck in the office. SPECIAL CARE INSTRUCTIONS: VERY IMPORTANT TO READ AND REVIEW A. Your surgical incision has been closed with a cosmetic suture under the skin that will dissolve in about 6 weeks. In 14 days, you can use a pair of clean scissors and cut the suture that is left outside of the skin at the ends of your incision. 1. The small skin tapes can be removed 7 days after surgery if they have not fallen off by that point. 2. You may keep the wound open to air as much as possible to promote healing after post-op day number 5 unless told otherwise by your doctor. 3. If you think the wound looks like it is becoming infected (redness or worsening drainage) and/or you are experiencing fever, chill or worsening back pain and muscle spasms, contact the office so that we may evaluate you as soon as possible. B. Complications are uncommon, but please contact us if you have any signs or symptoms of: 1. wound infection (fever higher than 102.5 degrees F, redness, separation of wound, drainage, or increasing pain from the incision) 2. blood clots in legs (pain, swelling, redness and warmth in legs) 3. urinary tract infection (fever higher than 102.5 degrees F, burning upon urination or increased frequency of urination) 4. nerve problems (inability to walk on your toes or heels, numbness, loss of bowel or bladder control) 5. any other symptoms that concern you C. Please call the office at if you have any concerns or questions about your operation or recovery. D. No smoking! Smoking drastically decreases the chance of a solid fusion. E. Do not take any anti-inflammatory medications (Indocin, Advil, Motrin, Aspirin, Naprosyn, etc.) as these may inhibit the chance of a solid fusion. Tylenol is okay to take for pain. MANAGING PAIN AFTER SPINAL SURGERY 1. Narcotic medication is intended for short-term use and will be provided for surgical pain. Surgical pain usually lasts for a period of 4-6 weeks. Narcotic medication includes Percocet, Vicodin, Darvocet, Tylenol #3 or Lortab. 2. Longer-term pain is more appropriately treated with non-narcotic medication such as Tylenol ES. 3. Muscle spasm is not appropriately treated with narcotics. Muscle relaxers such as Soma, Flexeril or Skelaxin can be used along with Tylenol ES. 4. Remember that we all live with some "aches and pains". This is not unusual or uncommon after an injury or as we get older. a. Back pain is expected and may include muscle spasms for 4 to 6 weeks after surgery. The pain should gradually improve. If the pain worsens for no apparent reason, please contact the office. b. Intermittent leg pain may also be experienced and should not be concerned about unless it worsens for no apparent reason. If so, please contact the office. 5. We will provide appropriate medication within the normal guidelines of their prescribed use. We will also be very cautious and aware of potential abuse and extended duration of patients' medication needs. a. Pain medications are for your comfort and to assist with sleep and rest so that the tissue can heal. They are not provided in order to return to normal activity and should not be used through the day. To do so or worsening pain at night can result from ongoing tissue damage and development of tolerance to the prescribed medicine. 6. Please allow 2-3 days to process refills. Prescriptions will not be mailed but must be picked up at the office. FOLLOW UP VISIT: Keep your scheduled follow-up appointment. Any questions, please call the office at . Pending Studies at Discharge: No Stand-Alone Forms: [facility], Smoking Cessation Medications and DC Order Prescriptions: New tramadol 50 mg tablet 50 mg PO Q6H PRN (Reason: pain, moderate) Qty: 30 RF: 0 oxycodone 5 mg tablet 5 mg PO Q6H PRN (Reason: pain, severe) Qty: 30 RF: 0 cyclobenzaprine 10 mg Tablet 10 mg PO BID PRN (Reason: muscle spasm) Qty: 30 RF: 0 Continued betamethasone dipropionate 0.05 % cream 1 appln TOP DAILY PRN (Reason: skin irritation) Qty: 45 RF: 0 losartan 100 mg tablet 100 mg PO DAILY Qty: 90 RF: 3 hydrochlorothiazide 50 mg tablet 50 mg PO DAILY Qty: 90 RF: 3 omeprazole 40 mg capsule,delayed release(DR/EC) 40 mg PO DAILY Qty: 90 RF: 1 tamsulosin 0.4 mg capsule 0.4 mg PO DAILY Qty: 90 RF: 3 cholecalciferol (vitamin D3) [Vitamin D3] 2,000 unit capsule 4,000 unit PO QAM Qty: 60 RF: 0 amlodipine [Norvasc] 5 mg tablet 5 mg PO DAILY Qty: 30 RF: 2 multivitamin Tablet 1 tab PO QAM RF: 0 aspirin 81 mg Tablet 81 mg PO QAM RF: 0 No Action potassium chloride 20 mEq Tablet Extended Release 20 meq PO QAM RF: 0 Discharge Orders: Discharge Order (Routine); Ordered 05/13/20 Ordered By: Negro Browning Admission Data Admit Date/Time: 05/10/20 12:47 Attending Provider: Negro Browning Admit Provider: Negro Browning Primary Care Provider: Christel Ying Other Providers: Teresa Yan
[2020-05-13] MEDS: MULTIVITAMIN TAB PO SCH (08:46)
[2020-05-13] MEDS: ASPIRIN 81 MG ECTAB PO SCH (08:46)
[2020-05-13] MEDS: POTASSIUM CHLORIDE CRTAB 20 MEQ TABCR PO SCH (08:46)
[2020-05-13] MEDS: amLODIPine BESYLATE 5 MG TAB PO SCH (08:46)
[2020-05-13] MEDS: CHOLECALCIFEROL 1,000 UNITS 25 MCG TAB PO SCH (08:47)
[2020-05-13] MEDS: PANTOprazole 40 MG TAB PO SCH (08:47)
[2020-05-13] MEDS: TAMSULOSIN HCL 0.4 MG CAP PO SCH (08:47)
[2020-05-13] MEDS: LOSARTAN POTASSIUM 50 MG TAB PO SCH (08:47)
[2020-05-13] MEDS: hydroCHLOROthiazide 25 MG TAB PO SCH (08:47)
[2020-05-13] MEDS: dexAMETHasone 8 MG in SYRINGE 0 ML IV SCH (08:47)
== END 2020-05-13 13:42 | disposition home or self-care (01) ==
LOC: ASU 08:34 → 3E 12:47 → SUATTDRO 12:47